=== PATIENT | female | born 1970 | race Caucasian/White ===

== ENCOUNTER 2024-08-03 13:05 | Observation (INO) | payer MEDICAID, SELFPAY ==
[2024-08-03] VITALS (10 sets, daily range): BP systolic 82–108; BP diastolic 45–66; PULSE 68–82; RESP 15–22; TEMP 36.7–37.4; O2SAT 95–100; BMI 32.6; BMI 33.3
--- NOTE | 2024-08-03 13:09 | ED_ITS ---
<Statement entered by French Mota MD - 08/04/24 01:16> Ultimately, the team leader surgery recommends admission for an MRCP in the morning. Patient be transferred to the admitting service in hemodynamically stable condition. I was consulted by the MOIRA, and we discussed the complexity of problems being addressed. I approved the treatment and management plan for this patient's care in the emergency department, thus performing a substantial portion of the medical decision making. French Mota MD Discharge Plan Disposition Patient Disposition: Admitted Clinical Impressions Clinical Impression: Neutropenia, Transaminitis Discharge ED Provider: Suha Garcia General Adult HPI <BASSEM Slaughter - Last Filed: 08/03/24 21:02> General Chief complaint: Abdominal Pain Stated complaint: Poss. Kidney Infection. Lower back pain, Fever Time Seen by Provider: 08/03/24 13:09 History of Present Illness HPI narrative: Patient presents for evaluation of right flank pain. Patient reports that she has had fever fatigue headache malaise for the last 3 days and yesterday began having right flank pain. Thought she may have a urinary tract infection although she has no dysuria symptoms. She denies shortness of breath hemoptysis hematochezia melena hematemesis hematuria Related Data Home Medications ?Medication ?Instructions ?Recorded ?Confirmed lisinopril 10 1 tab PO DAILY 08/03/24 08/03/24 mg-hydrochlorothiazide 12.5 mg tablet Allergies Allergy/AdvReac Type Severity Reaction Status Date / Time No Known Allergies Allergy Verified 08/03/24 13:51 PFSH <BASSEM Slaughter - Last Filed: 08/03/24 21:02> [facility] Disclaimer: The information contained in this section may have been updated after the patient was seen, as this information can be updated by other users. Medical History (Updated 08/03/24 @ 18:55 by Rachid Winn MD) Hypertension Social History Smoking Status: Never smoker alcohol intake: never current occupational status: employed Travel in the last 8 weeks?: None Have you lived/traveled outside US in past 30 days?: No Contact w/someone who lives/traveled outside US past 30 days?: No Exposure to someone with infectious disease in past 14 days?: No Do you have a fever (greater than 100.4 F or 38 C)?: No Have you tested positive for COVID-19?: No Exposed to someone with COVID-19 in past 14 days?: No Do you have a sore throat?: No Do you have a cough?: No Do you have any weakness?: No Do you have any diarrhea?: No Are you experiencing any unusual bleeding?: No Do you have any muscle aches/pain?: No Do you have any abdominal pain?: No Are you experiencing loss of taste or smell?: No <BASSEM Slaughter - Last Filed: 08/03/24 21:02> ROS Obtained: Yes Systems reviewed as appropriate & no additional complaints except as documented Physical Exam <BASSEM Slaughter - Last Filed: 08/03/24 21:02> General General appearance: alert and in no apparent distress Respiratory Respiratory exam: Present normal lung sounds bilaterally Cardiovascular Cardiovascular exam: Present regular rate Neurological Exam Neurological exam: Present alert and oriented X3 Medical Decision Making <BASSEM Slaughter - Last Filed: 08/03/24 21:02> Medical Records Medical records reviewed: Yes I reviewed the patient's medical records. Screening: Per USPSTF and CDC recommendations, given the prevalence of disease in our region, it is our hospital?s policy to screen for HIV and viral Hepatitis for all patients aged 18 and over and those with ongoing risk factors. Vital Signs: 08/03/24 13:35 08/03/24 14:03 08/03/24 14:38 Temperature 99.4 F Temperature Source Oral Pulse Rate 80 82 Pulse Rate [Right Radial] 82 Respiratory Rate 16 20 20 Blood Pressure 94/54 L 95/55 L Blood Pressure [Right Arm] 108/54 L Blood Pressure Mean 67 66 Blood Pressure Mean [Right Arm] 72 Blood Pressure Source Blood Pressure Source [Right Arm] Automatic Cuff Blood Pressure Position Blood Pressure Position [Right Arm] Sitting 02 Sat by Pulse Oximetry 99 95 95 Oxygen Delivery Method Room Air 08/03/24 15:00 08/03/24 15:08 08/03/24 15:30 Temperature Temperature Source Pulse Rate 78 78 74 Pulse Rate [Right Radial] Respiratory Rate 20 18 20 Blood Pressure 82/45 L 90/50 L 105/66 L Blood Pressure [Right Arm] Blood Pressure Mean 57 62 76 Blood Pressure Mean [Right Arm] Blood Pressure Source Blood Pressure Source [Right Arm] Blood Pressure Position Blood Pressure Position [Right Arm] 02 Sat by Pulse Oximetry 96 100 97 Oxygen Delivery Method 08/03/24 16:05 08/03/24 17:25 Temperature 99.0 F Temperature Source Oral Pulse Rate 68 68 Pulse Rate [Right Radial] Respiratory Rate 22 15 Blood Pressure 100/55 L 94/63 L Blood Pressure [Right Arm] Blood Pressure Mean Blood Pressure Mean [Right Arm] Blood Pressure Source Automatic Cuff Blood Pressure Source [Right Arm] Blood Pressure Position Supine Blood Pressure Position [Right Arm] 02 Sat by Pulse Oximetry 95 Oxygen Delivery Method Room Air Room Air Lab Data Lab results reviewed: Yes I reviewed the patient's lab results. Lab Results 08/03/24 13:18: Urine Color Yellow, Urine Appearance Clear, Urine pH 6.0, Ur Specific [place] 1.015, Urine Protein Trace, Urine Glucose (UA) Negative, Urine Ketones Negative, Urine Blood 3+ A, Urine Nitrate Negative, Urine Bilirubin 1+ A , Urine Urobilinogen 2.0, Ur Leukocyte Esterase Trace, Urine RBC 10-20, Urine WBC Occasional, Ur Squamous Epith Cells Occasional, Urine Bacteria Trace, Urine HCG, Qual Negative 08/03/24 13:40: GGT 572 H, Lactate Dehydrogenase 853 H, Acetaminophen < 10 L, Monoscreen Negative 08/03/24 13:41: WBC 1.6 L*, RBC 4.24, Hgb 12.8, Hct 37.6, MCV 88.7, MCH 30.2, MCHC 34.0, RDW 12.9, Plt Count 112 L, MPV 10.4, Neut % (Auto) 53.7, Lymph % (Auto) 32.3, [place] % (Auto) 10.8 H, Eos % (Auto) 0.0 L, Baso % (Auto) 1.3, Neut # (Auto) 0.9 L*, Lymph # (Auto) 0.5 L, [place] # (Auto) 0.2, Eos # (Auto) 0.0, Baso # (Auto) 0.0, Total Counted 50, Neutrophils % (Manual) 20 L, Band Neutrophils % 30.0 H, Lymphocytes % (Manual) 34, Atypical Lymphs % 2.0, Monocytes % (Manual) 4, Myelocytes % 8 H, Blast Cells % 2.0, Platelet Estimate Slight dec, RBC Morphology Normal, PT 11.9, INR 1.08, Sodium 129 L, Potassium 3.9, Chloride 98, Carbon Dioxide 27, Anion Gap 7.9, BUN 15, Creatinine 0.90, Estimated Creat Clear 90, Estimated GFR 65, Est GFR ( Amer) 79, Glucose 121 H, Calcium 8.9, Magnesium 1.9, Total Bilirubin 2.0 H, AST 298 H, ALT 252 H, Alkaline Phosphatase 277 H, Total Protein 6.6, Albumin 4.0, Globulin 2.6, Albumin/Globulin Ratio 1.5, Lipase 130, Procalcitonin 0.373, HCV Ab ALEC w/Rflx PCR Qn Negative 08/03/24 14:49: Chlamy pneumoniae PCR Not detected, Adenovirus (PCR) Not detected, B. pertussis DNA (PCR) Not detected, Coronavirus OC43 (PCR) Not detected, Coronavirus HKU1 (PCR) Not detected, Coronavirus 229E (PCR) Not detected, SARS-CoV-2 (PCR) Not detected, Coronavirus NL63 (PCR) Not detected, Human Metapneumovir PCR Not detected, Influenza A (H1) PCR Not detected, Influ A (H1N1/09) PCR Not detected, Influenza A (H3) PCR Not detected, Influenza Type A (PCR) Not detected, Influenza Type B (PCR) Not detected, M. pneumoniae (PCR) Not detected, Parainfluenza 1 (PCR) Not detected, Parainfluenza 2 (PCR) Not detected, Parainfluenza 3 (PCR) Not detected, Parainfluenza 4 (PCR) Not detected, RSV (PCR) Not detected, Entero/Rhino (PCR) Not detected 08/03/24 16:46: HIV Ag/Ab Combo Qual Negative 08/03/24 13:41 08/03/24 13:41 Orders (Tests/Meds): ED MEDICATIONS Generic Name Dose Route Start Last Admin Trade Name Freq PRN Reason Stop Dose Admin Acetaminophen 650 mg 08/03/24 18:46 Acetaminophen 325mg Tab PO 09/02/24 18:45 Q6HP PRN Fever or Mild Pain (1-3) Piperacillin Sod/Tazobactam 100 mls @ 200 mls/hr 08/03/24 16:45 08/03/24 18:04 Sod 4.5 gm/ Sodium Chloride IV 08/13/24 16:44 200 mls/hr Q6H ARPAN Administration Doxycycline Hyclate 100 mg/ 250 mls @ 166.667 mls/hr 08/03/24 16:45 08/03/24 17:07 Sodium Chloride IV 08/13/24 16:44 166.667 mls/hr Q12H ARPAN Administration Lactated Ringer's 1,000 mls @ 125 mls/hr 08/03/24 19:00 08/03/24 19:51 Lactated Ringer's 1000 Ml Bag IV 08/04/24 02:59 125 mls/hr .Q8H ARPAN Administration Sodium Chloride 10 ml 08/03/24 18:50 Sodium Chloride 0.9% 10ml Flush Syringe IV 09/02/24 18:49 NEEDED PRN Maintain IV Site Discontinued Medications Generic Name Dose Route Start Last Admin Trade Name Freq PRN Reason Stop Dose Admin Acetaminophen 1,000 mg 08/03/24 13:23 08/03/24 13:55 Acetaminophen 500mg Tab PO 08/03/24 13:24 1,000 mg ONCE ONE Administration Sodium Chloride 1,000 mls @ 999 mls/hr 08/03/24 13:23 08/03/24 13:57 Sod Chlor 0.9% 1000ml Bag IV 08/03/24 14:23 999 mls/hr .Q1H1M ONE Administration Sodium Chloride 1,430 mls @ 715 mls/hr 08/03/24 14:43 08/03/24 14:56 Sod Chlor 0.9% 1000ml Bag 30 ml/kg infuse over 2 hr (1430 ml) 08/03/24 16:42 715 mls/hr IV Administration .Q2H ONE Iopamidol 75 ml 08/03/24 14:23 08/03/24 14:25 Iopamidol-370 (76%);100ml Bottle IV 08/03/24 14:24 75 ml ONCE ONE Administration Ketorolac Tromethamine 15 mg 08/03/24 13:23 08/03/24 13:56 Ketorolac 30mg/Ml Vial IV 08/03/24 13:24 15 mg ONCE ONE Administration Ondansetron HCl 4 mg 08/03/24 13:23 08/03/24 13:56 Ondansetron 4mg/2ml Vial IV 08/03/24 13:24 4 mg ONCE ONE Administration Sodium Chloride 10 ml 08/03/24 14:23 08/03/24 14:25 Sodium Chloride 0.9% 10ml Syr (Rad Only) IV 08/03/24 14:24 10 ml ONCE ONE Administration ORDERS Category Date Time Status CT abdomen pelvis w con Stat Cat Scan 08/03/24 13:23 Completed US abdomen limited Stat Exams 08/03/24 15:21 Completed Acetaminophen Stat Lab 08/03/24 13:40 Completed CBC w/Auto Diff [Complete Blood Count Auto Diff] Stat Lab 08/03/24 13:41 Results CMP [Comprehensive Metabolic Panel] Stat Lab 08/03/24 13:41 Completed Complete Blood Count Auto Diff AMLAB Lab 08/04/24 06:00 Ordered Comprehensive Metabolic Panel AMLAB Lab 08/04/24 06:00 Ordered Francisella tularensis Abs. Routine Lab 08/03/24 13:41 Received Full Resp Panel w/COVID ([facility]) Routine Lab 08/03/24 14:49 Completed GGT [Gamma Glutamyl Transpeptidase] Stat Lab 08/03/24 13:40 Completed HIV Combo Stat Lab 08/03/24 16:46 Completed Hepatitis C Ab Qual. W/ RFX Routine Lab 08/03/24 13:41 Completed Hepatitis Panel Stat Lab 08/03/24 16:46 Received Human Granulocytic Genoveva-HGE Routine Lab 08/03/24 16:45 Ordered INR [Prothrombin Time INR] Stat Lab 08/03/24 13:41 Completed LDH [Lactate Dehydrogenase] Stat Lab 08/03/24 13:40 Completed Lipase Stat Lab 08/03/24 13:41 Completed Lyme Ab, Modified 2-Tier Stat Lab 08/03/24 13:41 Received Magnesium AMLAB Lab 08/04/24 06:00 Ordered Magnesium Stat Lab 08/03/24 13:41 Completed Monoscreen (Rapid) Stat Lab 08/03/24 13:40 Completed Peripheral Smear Review Stat Lab 08/03/24 13:41 Results Procalcitonin Stat Lab 08/03/24 13:41 Completed Prothrombin Time INR AMLAB Lab 08/04/24 06:00 Ordered UA [Urinalysis and Microscopic] Stat Lab 08/03/24 13:18 Completed Urine , HCG Qual. Stat Lab 08/03/24 13:18 Completed Blood Culture Stat Micro 08/03/24 14:51 Received Tissue Perfus/Sepsis Re-Eval Sepsis Re-Evaluation Performed: Yes Date Performed: 08/03/24 Time Performed: 16:00 Medical Decision Narrative: In summary patient is a 54-year-old female who presents to the emergency department for evaluation of headache fatigue malaise and right flank pain. Patient is hemodynamically stable with a blood pressure 108/54 initially heart rate 82 respiratory rate 16 O2 sats 99% upon arrival, temperature is 99.4 on arrival. Physical exam is remarkable for pupils equal round reactive to light without icterus, but sounds critical bilaterally to the bases with adventitious sounds, there is negative CVA tenderness to percussion bilaterally, abdomen is soft and diffusely mildly tender to palpation but no focal abdominal tenderness and no tenderness in the right upper quadrant negative Grullon sign.. Differential diagnosis includes urinary tract infection versus kidney stone versus cholelithiasis versus cholecystitis versus gastroenteritis etc. Initial workup will be conducted with hematologic labs urinalysis CT scan abdomen pelvis.. Initial interventions include crystalloid bolus Toradol Tylenol Zofran. Initial workup reviewed by me and her hematologic labs are significant for white count of 1.6 normal H&H platelet count of the 112 absolute neutrophil count of 0.9 absolute lymphocyte count of 0.5 with 30% bands, INR is 1.08, sodium is 129 glucose 121 magnesium 1.9 total bilirubin 2 GGT is 572 AST is 298 ALT is 252 alk phos is 277 LDH is 853 lipase is 130 and procalcitonin within normal limits but detectable at 0.373, urinalysis shows 3+ of blood 1 of bilirubin negative for nitrites trace leukocytes and microscopic exam shows 10- 20 red blood cells occasional white cells occasional squamous epithelial cells trace bacteria, urine hCG is negative, acetaminophen level is less than 10, and my informal interpretation of her CT scan abdomen pelvis shows no acute processes prior to radiology read. Please see formal read for formal interpretation. Given this I reinterviewed the patient and he queried about her medication history. She does not have a history of known liver disease denies alcohol use denies illicit drug use denies IV drug use and does not take Tylenol routinely. She does state [place] and has had multiple tick bites and tick removals in the last few weeks.. I then had an interactive discussion with Dr. Forde of gastroenterology who recommended an ultrasound to rule out obstructing stone. Formal ultrasound did not reveal any evidence of biliary obstruction or common bile duct obstruction. Additional lab testing showed that her Monospot was negative. Patient had a sepsis bolus ordered and despite nearly 3 L of fluid remains with a soft blood pressure of 95/63 but is not tachycardic at 73. Given this I had an interactive discussion with hospital medicine regarding patient presentation MEJIA and management and she will be admitted for further evaluation and care for possible tickborne disease versus ascending cholangitis. She will be started on IV doxycycline and Zosyn since blood cultures were ordered earlier.. DO Jose: I was consulted by the MOIRA, and we discussed the complexity of the problems being addressed. I approved the treatment and management plan for this patient's care in the emergency department, thus performing a substantive portion of the medical decision making. I was involved in the care of the patient until time of signout to oncoming provider at 1500 Suha Garcia DO <Suha Garcia DO - Last Filed: 08/03/24 15:20> Jamey Inquiry Pt receiving controlled substance: No Vital Signs: 08/03/24 13:35 08/03/24 14:03 08/03/24 14:38 Temperature 99.4 F Temperature Source Oral Pulse Rate 80 82 Pulse Rate [Right Radial] 82 Respiratory Rate 16 20 20 Blood Pressure 94/54 L 95/55 L Blood Pressure [Right Arm] 108/54 L Blood Pressure Mean 67 66 Blood Pressure Mean [Right Arm] 72 Blood Pressure Source Blood Pressure Source [Right Arm] Automatic Cuff Blood Pressure Position Blood Pressure Position [Right Arm] Sitting 02 Sat by Pulse Oximetry 99 95 95 Oxygen Delivery Method Room Air 08/03/24 15:00 08/03/24 15:08 08/03/24 15:30 Temperature Temperature Source Pulse Rate 78 78 74 Pulse Rate [Right Radial] Respiratory Rate 20 18 20 Blood Pressure 82/45 L 90/50 L 105/66 L Blood Pressure [Right Arm] Blood Pressure Mean 57 62 76 Blood Pressure Mean [Right Arm] Blood Pressure Source Blood Pressure Source [Right Arm] Blood Pressure Position Blood Pressure Position [Right Arm] 02 Sat by Pulse Oximetry 96 100 97 Oxygen Delivery Method 08/03/24 16:05 08/03/24 17:25 Temperature 99.0 F Temperature Source Oral Pulse Rate 68 68 Pulse Rate [Right Radial] Respiratory Rate 22 15 Blood Pressure 100/55 L 94/63 L Blood Pressure [Right Arm] Blood Pressure Mean Blood Pressure Mean [Right Arm] Blood Pressure Source Automatic Cuff Blood Pressure Source [Right Arm] Blood Pressure Position Supine Blood Pressure Position [Right Arm] 02 Sat by Pulse Oximetry 95 Oxygen Delivery Method Room Air Room Air Lab Data Lab Results 08/03/24 13:18: Urine Color Yellow, Urine Appearance Clear, Urine pH 6.0, Ur Specific [place] 1.015, Urine Protein Trace, Urine Glucose (UA) Negative, Urine Ketones Negative, Urine Blood 3+ A, Urine Nitrate Negative, Urine Bilirubin 1+ A , Urine Urobilinogen 2.0, Ur Leukocyte Esterase Trace, Urine RBC 10-20, Urine WBC Occasional, Ur Squamous Epith Cells Occasional, Urine Bacteria Trace, Urine HCG, Qual Negative 08/03/24 13:40: GGT 572 H, Lactate Dehydrogenase 853 H, Acetaminophen < 10 L, Monoscreen Negative 08/03/24 13:41: WBC 1.6 L*, RBC 4.24, Hgb 12.8, Hct 37.6, MCV 88.7, MCH 30.2, MCHC 34.0, RDW 12.9, Plt Count 112 L, MPV 10.4, Neut % (Auto) 53.7, Lymph % (Auto) 32.3, [place] % (Auto) 10.8 H, Eos % (Auto) 0.0 L, Baso % (Auto) 1.3, Neut # (Auto) 0.9 L*, Lymph # (Auto) 0.5 L, [place] # (Auto) 0.2, Eos # (Auto) 0.0, Baso # (Auto) 0.0, Total Counted 50, Neutrophils % (Manual) 20 L, Band Neutrophils % 30.0 H, Lymphocytes % (Manual) 34, Atypical Lymphs % 2.0, Monocytes % (Manual) 4, Myelocytes % 8 H, Blast Cells % 2.0, Platelet Estimate Slight dec, RBC Morphology Normal, PT 11.9, INR 1.08, Sodium 129 L, Potassium 3.9, Chloride 98, Carbon Dioxide 27, Anion Gap 7.9, BUN 15, Creatinine 0.90, Estimated Creat Clear 90, Estimated GFR 65, Est GFR ( Amer) 79, Glucose 121 H, Calcium 8.9, Magnesium 1.9, Total Bilirubin 2.0 H, AST 298 H, ALT 252 H, Alkaline Phosphatase 277 H, Total Protein 6.6, Albumin 4.0, Globulin 2.6, Albumin/Globulin Ratio 1.5, Lipase 130, Procalcitonin 0.373, HCV Ab ALEC w/Rflx PCR Qn Negative 08/03/24 14:49: Chlamy pneumoniae PCR Not detected, Adenovirus (PCR) Not detected, B. pertussis DNA (PCR) Not detected, Coronavirus OC43 (PCR) Not detected, Coronavirus HKU1 (PCR) Not detected, Coronavirus 229E (PCR) Not detected, SARS-CoV-2 (PCR) Not detected, Coronavirus NL63 (PCR) Not detected, Human Metapneumovir PCR Not detected, Influenza A (H1) PCR Not detected, Influ A (H1N1/09) PCR Not detected, Influenza A (H3) PCR Not detected, Influenza Type A (PCR) Not detected, Influenza Type B (PCR) Not detected, M. pneumoniae (PCR) Not detected, Parainfluenza 1 (PCR) Not detected, Parainfluenza 2 (PCR) Not detected, Parainfluenza 3 (PCR) Not detected, Parainfluenza 4 (PCR) Not detected, RSV (PCR) Not detected, Entero/Rhino (PCR) Not detected 08/03/24 16:46: HIV Ag/Ab Combo Qual Negative Orders (Tests/Meds): ED MEDICATIONS Generic Name Dose Route Start Last Admin Trade Name Freq PRN Reason Stop Dose Admin Acetaminophen 650 mg 08/03/24 18:46 Acetaminophen 325mg Tab PO 09/02/24 18:45 Q6HP PRN Fever or Mild Pain (1-3) Piperacillin Sod/Tazobactam 100 mls @ 200 mls/hr 08/03/24 16:45 08/03/24 18:04 Sod 4.5 gm/ Sodium Chloride IV 08/13/24 16:44 200 mls/hr Q6H ARPAN Administration Doxycycline Hyclate 100 mg/ 250 mls @ 166.667 mls/hr 08/03/24 16:45 08/03/24 17:07 Sodium Chloride IV 08/13/24 16:44 166.667 mls/hr Q12H ARPAN Administration Lactated Ringer's 1,000 mls @ 125 mls/hr 08/03/24 19:00 08/03/24 19:51 Lactated Ringer's 1000 Ml Bag IV 08/04/24 02:59 125 mls/hr .Q8H ARPAN Administration Sodium Chloride 10 ml 08/03/24 18:50 Sodium Chloride 0.9% 10ml Flush Syringe IV 09/02/24 18:49 NEEDED PRN Maintain IV Site Discontinued Medications Generic Name Dose Route Start Last Admin Trade Name Alanq PRN Reason Stop Dose Admin Acetaminophen 1,000 mg 08/03/24 13:23 08/03/24 13:55 Acetaminophen 500mg Tab PO 08/03/24 13:24 1,000 mg ONCE ONE Administration Sodium Chloride 1,000 mls @ 999 mls/hr 08/03/24 13:23 08/03/24 13:57 Sod Chlor 0.9% 1000ml Bag IV 08/03/24 14:23 999 mls/hr .Q1H1M ONE Administration Sodium Chloride 1,430 mls @ 715 mls/hr 08/03/24 14:43 08/03/24 14:56 Sod Chlor 0.9% 1000ml Bag 30 ml/kg infuse over 2 hr (1430 ml) 08/03/24 16:42 715 mls/hr IV Administration .Q2H ONE Iopamidol 75 ml 08/03/24 14:23 08/03/24 14:25 Iopamidol-370 (76%);100ml Bottle IV 08/03/24 14:24 75 ml ONCE ONE Administration Ketorolac Tromethamine 15 mg 08/03/24 13:23 08/03/24 13:56 Ketorolac 30mg/Ml Vial IV 08/03/24 13:24 15 mg ONCE ONE Administration Ondansetron HCl 4 mg 08/03/24 13:23 08/03/24 13:56 Ondansetron 4mg/2ml Vial IV 08/03/24 13:24 4 mg ONCE ONE Administration Sodium Chloride 10 ml 08/03/24 14:23 08/03/24 14:25 Sodium Chloride 0.9% 10ml Syr (Rad Only) IV 08/03/24 14:24 10 ml ONCE ONE Administration ORDERS Category Date Time Status CT abdomen pelvis w con Stat Cat Scan 08/03/24 13:23 Completed US abdomen limited Stat Exams 08/03/24 15:21 Completed Acetaminophen Stat Lab 08/03/24 13:40 Completed CBC w/Auto Diff [Complete Blood Count Auto Diff] Stat Lab 08/03/24 13:41 Results CMP [Comprehensive Metabolic Panel] Stat Lab 08/03/24 13:41 Completed Complete Blood Count Auto Diff AMLAB Lab 08/04/24 06:00 Ordered Comprehensive Metabolic Panel AMLAB Lab 08/04/24 06:00 Ordered Francisella tularensis Abs. Routine Lab 08/03/24 13:41 Received Full Resp Panel w/COVID ([facility]) Routine Lab 08/03/24 14:49 Completed GGT [Gamma Glutamyl Transpeptidase] Stat Lab 08/03/24 13:40 Completed HIV Combo Stat Lab 08/03/24 16:46 Completed Hepatitis C Ab Qual. W/ RFX Routine Lab 08/03/24 13:41 Completed Hepatitis Panel Stat Lab 08/03/24 16:46 Received Human Granulocytic Genoveva-HGE Routine Lab 08/03/24 16:45 Ordered INR [Prothrombin Time INR] Stat Lab 08/03/24 13:41 Completed LDH [Lactate Dehydrogenase] Stat Lab 08/03/24 13:40 Completed Lipase Stat Lab 08/03/24 13:41 Completed Lyme Ab, Modified 2-Tier Stat Lab 08/03/24 13:41 Received Magnesium AMLAB Lab 08/04/24 06:00 Ordered Magnesium Stat Lab 08/03/24 13:41 Completed Monoscreen (Rapid) Stat Lab 08/03/24 13:40 Completed Peripheral Smear Review Stat Lab 08/03/24 13:41 Results Procalcitonin Stat Lab 08/03/24 13:41 Completed Prothrombin Time INR AMLAB Lab 08/04/24 06:00 Ordered UA [Urinalysis and Microscopic] Stat Lab 08/03/24 13:18 Completed Urine , HCG Qual. Stat Lab 08/03/24 13:18 Completed Blood Culture Stat Micro 08/03/24 14:51 Received ECG Data Tracing #1: I reviewed this ECG and interpreted as documented below: Normal sinus rhythm with a ventricular rate of 79 bpm. PVC noted. No acute ST changes concerning for ischemia. Normal intervals ECG initial impression date: 08/03/24 ECG initial impression time: 13:32 Medical Decision Narrative: In summary patient is a [age, sex] who presents to the emergency department for evaluation of [complaint]. Patient is [hemodynamically stable/unstable] upon arrival, [febrile/afebrile]. [Unremarkable physical exam, nonfocal exam versus focal remarkable exam]. Differential diagnosis includes [DDx]. Initial workup will be conducted with [hematologic labs, imaging, respiratory swab, describe workup]. Initial interventions include [crystalloid bolus, medications, p.o. challenge, etc.] initial workup reviewed by me [hematologic labs are remarkable for... Imaging remarkable for... Urinalysis remarkable for]. Upon repeat evaluation [patient had acceptable resolution of symptoms, had persistent pain for which additional interventions were conducted (describe interventions), tolerated p.o., was ambulatory, etc.]. Given this [patient is appropriate for discharge at this time and will be discharged with a prescription for... The case was discussed with hospital medicine regarding management and they will admit the patient their service for continued evaluation at this time... Etc.] Places where you can increase complexity: I informally interpreted the patient's chest x-ray or CT read and is remarkable for... Documenting what the geosciences associate professor shows with rate and rhythm Consideration of test but deferring. Ex: I considered chest x-ray on this patient however given that they have no oxygen requirement and are clear to auscultation all lung jeter will be deferred. Social determinants of health: Given that patient is undomiciled increases complexity. Given that patient has polysubstance abuse compounds all aspects of care DO Jose: I was consulted by the MOIRA, and we discussed the complexity of the problems being addressed. I approved the treatment and management plan for this patient's care in the emergency department, thus performing a substantive portion of the medical decision making. I was involved in the care of the patient until time of signout to oncoming provider at 1500 Suha Garcia DO Critical Care <BASSEM Slaughter - Last Filed: 08/03/24 21:02> Critical Care Time Critical Care Time: Yes Attestation: On 08/03/24, the high probability of a clinically significant, sudden or life threatening deterioration of the following system(s) required my full and direct attention, intervention and personal management. The time I documented below is in addition to time spent performing reported procedures but includes the following listed in this critical care notation. Total Time Total Critical Care Time: 75 <Suha Garcia DO - Last Filed: 08/03/24 15:20> Critical Care Time Critical Care Time: No
--- NOTE | 2024-08-03 13:23 | CT_ITS ---
FINAL REPORT TECHNIQUE: Oral and IV contrast enhanced exam This study was performed with techniques to keep radiation doses as low as reasonably achievable, (ALARA). Individualized dose reduction techniques using automated exposure control or adjustment of mA and/or kV according to the patient''s size were employed. CLINICAL HISTORY: Right flank pain FINDINGS: Abdomen: Lung bases are clear. The gallbladder is unremarkable. Liver has an unremarkable CT appearance. The spleen mildly enlarged. The pancreas and adrenal glands are unremarkable. Kidneys show no mass or obstruction. There is moderate right and mild left renal scarring. No bowel obstruction or fluid collection is seen. Pelvis: The appendix is normal. Pelvic bowel loops are unremarkable. Uterus is mildly enlarged which may be due to fibroids. Although, no discrete mass is identified. No fluid collection or adenopathy is seen. IMPRESSION: No acute findings. Bilateral renal scarring, right greater than left. Reviewed, Interpreted and Dictated by James Chaudhry MD Transcribed by Crissy Peterson Authenticated and [facility]
[2024-08-03 13:24] LABS: Microscopic, Urine URINE MICROSCOPIC (MICROSCOPIC)
[2024-08-03 13:29] LABS: Appearance,Urine CLEAR (Clear); Blood, Urine 3+ (Negative); Color,Urine YELLOW (Yellow); Glucose,Urine (UA) Negative (Negative); Ketones,Urine Negative (Negative); Leukocyte Esterase,Urine TRACE (Negative); Nitrate,Urine Negative (Negative); Protein,Urine TRACE (Negative); Specific Gravity, Urine 1.015 (1.005-1.030)
[2024-08-03 13:30] LABS: Bilirubin,Urine 1+ (Negative)
--- NOTE | 2024-08-03 13:30 | ECG_ITS ---
APPROVED REPORT Exam: Resting ECG HR:79 bpm ECG Measurements Heart Rate 79 AXES CO 153 P 28 QRSd 94 QRS 58 QT 342 T 27 QTc 376 Conclusion SINUS RHYTHM WITH OCCASIONAL VENTRICULAR PREMATURE COMPLEXES POSSIBLE ANTERIOR MYOCARDIAL INFARCTION , OF INDETERMINATE AGE [30 ms Q WAVE IN V3/V4, OR R < 0.2 mV IN V4] No STEMI Electronically signed by : BROWN CRUZ, 08/04/2024 02:58:51
[2024-08-03 13:39] LABS: WBC,Urine Occasional #/hpf (0-3)
[2024-08-03 13:40] LABS: Bacteria,Urine Trace /lpf; Squamous Epithelial Cell,Urine Occasional #/hpf (0-5)
[2024-08-03 13:52] LABS: Basophils % 1.3 % (0.1-2.0); Hematocrit 37.6 % (37.0-47.0); Hemoglobin 12.8 g/dL (12.2-16.2); Immature Granulocytes # 0.03 10^3uL; Immature Granulocytes % 1.9 %; Lymphocytes # 0.5 K/mm3 (0.7-4.5); Lymphocytes % 32.3 % (10-50); Mean Corpuscular Hemoglobin 30.2 pg (27.0-31.2); Mean Corpuscular Volume 88.7 fl (81-99); Mean Platelet Volume 10.4 fl (7.4-10.4); Monocytes # 0.2 K/mm3 (0.1-1.0); Monocytes % 10.8 % (1.7-9.3); Neutrophils # 0.9 K/mm3 (1.8-7.8); Neutrophils % 53.7 % (37.0-80.0); Nucleated Red Blood Cells # 0 10^3/uL; Nucleated Red Blood Cells % 0 %; Platelet Count 112 K/mm3 (142-424); Red Blood Count 4.24 M/mm3 (4.20-5.40); Red Cell Distribution Width 12.9 % (11.5-17.5); Red Cell Distribution Width-SD 41.9 fL
[2024-08-03] MEDS: ACETAMINOPHEN 500MG TAB 1000 MG PO (13:55)
[2024-08-03] MEDS: ONDANSETRON 4MG/2ML VIAL 4 MG IV (13:56)
[2024-08-03] MEDS: KETOROLAC 30MG/ML VIAL 15 MG IV (13:56)
[2024-08-03] MEDS: 0.9 % SODIUM CHLORIDE 1000ML 1,000 ML 999 ML IV (13:57)
[2024-08-03 13:59] LABS: INR 1.08 (0.9-1.1); Prothrombin Time 11.9 seconds (10.1-12.5)
[2024-08-03 14:01] LABS: Alanine Aminotransferase 252 U/L (12-78); Albumin/Globulin Ratio 1.5 (1.1-1.8); Aspartate Amino Transferase 298 U/L (14-36); Blood Urea Nitrogen 15 mg/dl (7-17); Calcium 8.9 mg/dl (8.4-10.2); Carbon Dioxide 27 mmol/L (22.0-30.0); Chloride 98 mmol/L (98-107); Creatinine Clearance Estimated 90 mL/min (50-200); Estimated Glomerular Filt Rate 65 ml/min (>60); GFR (African American) 79 ML/MIN (>60); Globulin 2.6 g/dL (1.3-3.2); Glucose 121 mg/dl (74-100); Lipase 130 U/L (23-300); Magnesium 1.9 mg/dl (1.6-2.3); Sodium 129 mmol/L (136-145); Total Protein,Serum 6.6 g/dl (6.3-8.2)
[2024-08-03 14:02] LABS: Alkaline Phosphatase 277 U/L (38-126)
[2024-08-03 14:04] LABS: Anion Gap 7.9 mEq/L (5-15); Potassium 3.9 mmoL/L (3.5-5.1)
[2024-08-03 14:07] LABS: White Blood Count 1.6 K/mm3 (4.8-10.8)
[2024-08-03 14:08] LABS: MANUAL DIFFERENTIAL MANUAL DIFFERENTIAL (MANUAL DIFF)
[2024-08-03 14:15] LABS: Urine Pregnancy, HCG Qual. Negative (Negative)
[2024-08-03 14:18] LABS: Procalcitonin 0.373 ng/mL (0.0-2.0)
[2024-08-03] MEDS: SODIUM CHLORIDE 0.9% 10ML SYR (RAD ONLY) 10 ML IV (14:25)
[2024-08-03] MEDS: IOPAMIDOL-370 (76%);100ML BOTTLE 75 ML IV (14:25)
[2024-08-03 14:54] LABS: Adenovirus,PCR Not Detected (NotDetected); Bordetella Pertussis Not Detected (NotDetected); Chlamydophila Pneumoniae, PCR Not Detected (NotDetected); Coronavirus 19, PCR Not Detected (NotDetected); Coronavirus 229E Not Detected (NotDetected); Coronavirus NL63 Not Detected (NotDetected); Coronavirus OC43 Not Detected (NotDetected); Coronovirus HKU1,PCR Not Detected (NotDetected); Human Metapneumovirus Not Detected (NotDetected); Influenza A, PCR Not Detected (NotDetected); Influenza AH1, 2009 Not Detected (NotDetected); Influenza AH1, PCR Not Detected (NotDetected); Influenza AH3,PCR Not Detected (NotDetected); Influenza B, PCR Not Detected (NotDetected); Mycoplasma Pneumoniae, PCR Not Detected (NotDetected); Parainfluenza 1, PCR Not Detected (NotDetected); Parainfluenza 2, PCR Not Detected (NotDetected); Parainfluenza 3, PCR Not Detected (NotDetected); Parainfluenza 4, PCR Not Detected (NotDetected); Respiratory Syncytial Virus Not Detected (NotDetected); Rhinovirus/Enterovirus Not Detected (NotDetected)
[2024-08-03] MEDS: 0.9 % SODIUM CHLORIDE 1000ML 1,430 ML 715 ML IV (14:56)
[2024-08-03 15:01] LABS: Monoscreen (Rapid) Negative (Negative)
[2024-08-03 15:10] LABS: Lyme Ab IgM CIA ND; Lyme IgG CIA ND
--- NOTE | 2024-08-03 15:21 | US_ITS ---
FINAL REPORT CLINICAL HISTORY: Right flank pain and transaminitis COMPARISON: None FINDINGS: Sonographic images of the right upper quadrant were obtained. The pancreas is partially obscured. The liver has an unremarkable appearance. There is no evidence of biliary obstruction. The gallbladder is contracted. There is no evidence of definite stone disease. The common duct measures 6 mm. Limited images of the right kidney show no obstruction IMPRESSION: Contracted gallbladder without evidence of biliary obstruction. No hydronephrosis. Reviewed, Interpreted and Dictated by James Chaudhry MD Transcribed by Bre Jenkins Authenticated and [facility]
--- NOTE | 2024-08-03 15:26 | PC.NURSE ---
RADIOLOGY NOTIFIED OF US
[2024-08-03 15:31] LABS: Lymphocytes % 34 % (10-50); Monocytes % 4 % (2-9); Myelocytes % 8 (0-1); Neutrophils % 20 % (42-76); Total Cells Counted 50
[2024-08-03 15:32] LABS: RBC Morphology Normal
[2024-08-03 15:33] LABS: Platelet Estimate Slight Dec
[2024-08-03 15:39] LABS: Acetaminophen < 10 ug/ml (10-30)
[2024-08-03 15:48] LABS: Gamma Glutamyl Transpeptidase 572 U/L (12-43); Lactate Dehydrogenase 853 U/L (313-618)
--- NOTE | 2024-08-03 16:50 | PC.NURSE ---
[facility] TRADER NOTIFIED OF ADMISSION
--- NOTE | 2024-08-03 16:50 | EXP.HP ---
History of Present Illness *Admission Date: 08/03/24 *Reason for visit:: abdominal pain *History of present illness: Ms. Powell is an otherwise healthy 54-year-old female who presented to the ER due to abdominal pain for 2 to 3 days and syncopal event yesterday. States she has been having abdominal pain, worse in right upper quadrant. Has felt febrile. Denies bria emesis or diarrhea. Denies shortness of breath but has had some chest discomfort. Reports that she is currently building a house in the [facility] and has had numerous tick bites over the past several days to week. Even had a tick found on her in the ER. Workup in the ER concerning for neutropenia, thrombocytopenia, transaminitis with liver enzymes in the 2 300 range. Imaging showed a contracted gallbladder with no significant common bile duct dilation. GGT also elevated at 572. Medicine consulted for admission and further management. On arrival to the floor, further discussion with patient leads to high suspicion for tickborne illness. Feeling better after receiving a dose of 100 mg IV doxycycline in the ER. Stable on room air. Reports history of hypertension. Has had a tummy tuck and breast augmentation bilaterally. No other surgeries she reports. [facility] Disclaimer: The information contained in this section may have been updated after the patient was seen, as this information can be updated by other users. Medical History (Updated 08/03/24 @ 18:55 by Rachid Winn MD) Hypertension Social History Smoking Status: Never smoker alcohol intake: never current occupational status: employed Travel in the last 8 weeks?: None Have you lived/traveled outside US in past 30 days?: No Contact w/someone who lives/traveled outside US past 30 days?: No Exposure to someone with infectious disease in past 14 days?: No Do you have a fever (greater than 100.4 F or 38 C)?: No Have you tested positive for COVID-19?: No Exposed to someone with COVID-19 in past 14 days?: No Do you have a sore throat?: No Do you have a cough?: No Do you have any weakness?: No Do you have any diarrhea?: No Are you experiencing any unusual bleeding?: No Do you have any muscle aches/pain?: No Do you have any abdominal pain?: No Are you experiencing loss of taste or smell?: No Review of Systems Review of Systems Review of systems (narrative): 14 point review of systems performed, pertinent positives and negatives as per [facility] Meds Home Medications and Allergies Home Medications ?Medication ?Instructions ?Recorded ?Confirmed ?Type lisinopril 10 1 tab PO DAILY 08/03/24 08/03/24 History mg-hydrochlorothiazide 12.5 mg tablet New Prescriptions to Start Prescriptions: Allergies Allergy/AdvReac Type Severity Reaction Status Date / Time No Known Allergies Allergy Verified 08/03/24 13:51 Exam Data for Last 24 hours Vital signs and Labs for Last 24 Hours: Temp Pulse Resp BP Pulse Ox O2 Del Method 99.4 F 68 22 100/55 L 95 Room Air 08/03/24 13:35 08/03/24 16:05 08/03/24 16:05 08/03/24 16:05 08/03/24 16:05 08/03/24 16:05 Laboratory Results - last 24 hr 08/03/24 13:18: Urine Color Yellow, Urine Appearance Clear, Urine pH 6.0, Ur Specific [place] 1.015, Urine Protein Trace, Urine Glucose (UA) Negative, Urine Ketones Negative, Urine Blood 3+ A, Urine Nitrate Negative, Urine Bilirubin 1+ A, Urine Urobilinogen 2.0, Ur Leukocyte Esterase Trace, Urine RBC 10-20, Urine WBC Occasional, Ur Squamous Epith Cells Occasional, Urine Bacteria Trace, Urine HCG, Qual Negative 08/03/24 13:40: GGT 572 H, Lactate Dehydrogenase 853 H, Acetaminophen < 10 L, Monoscreen Negative 08/03/24 13:41: WBC 1.6 L*, RBC 4.24, Hgb 12.8, Hct 37.6, MCV 88.7, MCH 30.2, MCHC 34.0, RDW 12.9, Plt Count 112 L, MPV 10.4, Neut % (Auto) 53.7, Lymph % (Auto) 32.3, [place] % (Auto) 10.8 H, Eos % (Auto) 0.0 L, Baso % (Auto) 1.3, Neut # (Auto) 0.9 L*, Lymph # (Auto) 0.5 L, [place] # (Auto) 0.2, Eos # (Auto) 0.0, Baso # (Auto) 0.0, Total Counted 50, Neutrophils % (Manual) 20 L, Band Neutrophils % 30.0 H, Lymphocytes % (Manual) 34, Atypical Lymphs % 2.0, Monocytes % (Manual) 4, Myelocytes % 8 H, Blast Cells % 2.0, Platelet Estimate Slight dec, RBC Morphology Normal, PT 11.9, INR 1.08, Sodium 129 L, Potassium 3.9, Chloride 98, Carbon Dioxide 27, Anion Gap 7.9, BUN 15, Creatinine 0.90, Estimated Creat Clear 90, Estimated GFR 65, Est GFR ( Amer) 79, Glucose 121 H, Calcium 8.9, Magnesium 1.9, Total Bilirubin 2.0 H, AST 298 H, ALT 252 H, Alkaline Phosphatase 277 H, Total Protein 6.6, Albumin 4.0, Globulin 2.6, Albumin/Globulin Ratio 1.5, Lipase 130, Procalcitonin 0.373 I & O for Last 24 hours: Intake & Output 07/31/24 08/01/24 08/02/24 08/03/24 23:59 23:59 23:59 23:59 Weight 78.471 kg Constitutional Constitutional: mild distress, average body habitus and cooperative *Routine HEENT Exam Head: Present normocephalic Eye: Present EOMI and PERRL ENT: Present mucous membranes moist Comments: Cheeks flushed *Routine Neck Exam Neck: Present supple; Absent lymphadenopathy *Routine Respiratory Exam Respiratory: Present CTA bilaterally *Routine Cardiovascular Exam Cardiovascular: Present RRR *Routine Abdominal Exam Abdominal: Present soft, normoactive bowel sounds and tenderness (Worse in right upper quadrant); Absent distended, rebound or guarding *Routine Rectal Exam Rectal:: deferred *Routine Genitalia Exam Genitalia:: deferred *Routine Extremities Exam Extremities: Absent cyanosis, clubbing or edema *Routine Skin Exam Skin: Present warm; Absent rash Comments: Erythema around site of tick bite on back. Multiple spots that appear consistent with previous tick bites on her abdomen. No targetoid lesions *Routine Neurological Exam Neurological: Present alert, oriented X3 and moving all extremities; Absent altered mental status Assessment and Plan *Assessment and plan (1) Abdominal pain: Status: Acute Category: Medical Code(s): R10.9 - Unspecified abdominal pain (2) Transaminitis: Status: Acute Category: Medical Code(s): R74.01 - Elevation of levels of liver transaminase levels (3) Neutropenia: Status: Acute Category: Medical Code(s): D70.9 - Neutropenia, unspecified (4) Tick bite: Status: Acute Category: Medical Code(s): W57.XXXA - Bitten or stung by nonvenomous insect and other nonvenomous arthropods, initial encounter (5) Hypertension: Status: Chronic Category: Medical Code(s): I10 - Essential (primary) hypertension Plan 54-year-old female who presents with abdominal pain. Found to have transaminitis and neutropenia along with thrombocytopenia. Constellation of symptoms highly suggestive of tickborne illness such as ehrlichia or anaplasmosis. Discussed case with ER physician, request admission for further management and antibiotics. I agreed to admit for further care. GI consulted in the ER due to transaminitis. Appreciate their assistance in care. Appears to be showing some improvement after administration of doxycycline. Continues to require inpatient treatment. Problems addressed as follows: Abdominal pain Transaminitis Neutropenia/thrombocytopenia - CT of abdomen personally reviewed, gallbladder contracted. Does not appear to have any identifiable radiopaque stones - Labs with bilirubin 2.0, AST 298, ALT 252, alk phos 277, GGT 572. White count 1.6 with neutrophil count of 800. Platelets 112. Findings concerning for mild liver injury. Differential includes hepatitis, tickborne illness, choledocholithiasis, among other etiologies - Constellation most concerning for tickborne illness. Initiated on Zosyn due to neutropenia. Continue 4.5 g every 6 hours. Continue doxycycline 100 mg twice daily IV due to tickborne illness suspicion. - Ordered repeat CBC, CMP, magnesium for the morning. Ehrlichia level pending. - GI consulted, appreciate their recommendations. Hypertension: On home lisinopril/HCTZ. Holding blood pressure medication in the setting of dehydration and soft pressures at this time. Sodium 129, BUN 15, creatinine 0.9. Administering 1 L of LR at 125 cc an hour tonight. Regular diet ordered Holding anticoagulation in the setting of thrombocytopenia Full code
[2024-08-03] MEDS: DOXYCYCLINE HYCLATE 100 MG in 0.9 % SODIUM CHLORIDE 250 ML 166.667 MG IV (17:07)
[2024-08-03] MEDS: PIPERACILLIN/TAZO 4.5 GM in 0.9 % SODIUM CHLORIDE 100 ML IV ×2 (18:04→21:51)
[2024-08-03 18:24] LABS: Hepatitis C Ab Qual. W/ RFX NEGATIVE (Negative)
[2024-08-03 18:37] LABS: HIV Combo NEGATIVE (Negative)
[2024-08-03] MEDS: LACTATED RINGERS 1000ML 1,000 ML 125 ML IV (19:51)
[2024-08-04] VITALS: BP 98/49; PULSE 77; RESP 16; TEMP 37.9; O2SAT 95
[2024-08-04] MEDS: ACETAMINOPHEN 325MG TAB 650 MG PO ×4 (00:46→22:58)
[2024-08-04] MEDS: ALUMINUM/MAGNESIUM/SIMETHICONE 30ML UDC 30 ML PO ×2 (01:26→16:15)
--- NOTE | 2024-08-04 03:34 | PC.NURSE ---
Pt AOx4. Had low fever of 100.2 and c/o headache. Administered tylenol and rechecked temp, recorded as 99.3. Pt is currently resting in bed with eyes closed. Respirations even and unlabored. Bed is low, locked, and call light is in reach.
[2024-08-04 04:00] VITALS: BP 94/44; PULSE 74; RESP 16; TEMP 37.2; O2SAT 95; BMI 34.2
[2024-08-04] MEDS: PIPERACILLIN/TAZO 4.5 GM in 0.9 % SODIUM CHLORIDE 100 ML IV ×4 (04:21→22:39)
[2024-08-04] MEDS: DOXYCYCLINE HYCLATE 100 MG in 0.9 % SODIUM CHLORIDE 250 ML 166.667 MG IV ×2 (05:16→16:14)
[2024-08-04 06:50] LABS: Basophils % 1.1 % (0.1-2.0); Hematocrit 33.1 % (37.0-47.0); Immature Granulocytes # 0.03 10^3uL; Immature Granulocytes % 1.7 %; Lymphocytes # 0.8 K/mm3 (0.7-4.5); Lymphocytes % 43.1 % (10-50); Mean Corpuscular HGB Conc 33.8 g/dL (31.8-35.4); Mean Corpuscular Hemoglobin 30.6 pg (27.0-31.2); Mean Corpuscular Volume 90.4 fl (81-99); Mean Platelet Volume 11.1 fl (7.4-10.4); Monocytes # 0.2 K/mm3 (0.1-1.0); Monocytes % 10.9 % (1.7-9.3); Neutrophils # 0.8 K/mm3 (1.8-7.8); Neutrophils % 43.2 % (37.0-80.0); Nucleated Red Blood Cells # 0 10^3/uL; Nucleated Red Blood Cells % 0 %; Platelet Count 84 K/mm3 (142-424); Red Blood Count 3.66 M/mm3 (4.20-5.40); Red Cell Distribution Width-SD 43.6 fL
[2024-08-04 06:52] LABS: Alanine Aminotransferase 208 U/L (12-78); Albumin/Globulin Ratio 1.3 (1.1-1.8); Alkaline Phosphatase 241 U/L (38-126); Anion Gap 4.7 mEq/L (5-15); Aspartate Amino Transferase 231 U/L (14-36); Bilirubin,Total 1.9 mg/dl (0.2-1.3); Blood Urea Nitrogen 14 mg/dl (7-17); Carbon Dioxide 29 mmol/L (22.0-30.0); Chloride 105 mmol/L (98-107); Creatinine Clearance Estimated 96 mL/min (50-200); Estimated Glomerular Filt Rate 65 ml/min (>60); GFR (African American) 79 ML/MIN (>60); Globulin 2.4 g/dL (1.3-3.2); Glucose 108 mg/dl (74-100); Magnesium 1.9 mg/dl (1.6-2.3); Potassium 3.7 mmoL/L (3.5-5.1); Sodium 135 mmol/L (136-145); Total Protein,Serum 5.4 g/dl (6.3-8.2)
[2024-08-04 07:02] LABS: INR 1.08 (0.9-1.1); Prothrombin Time 11.9 seconds (10.1-12.5)
[2024-08-04 07:24] LABS: MANUAL DIFFERENTIAL MANUAL DIFFERENTIAL (MANUAL DIFF); White Blood Count 1.7 K/mm3 (4.8-10.8)
--- NOTE | 2024-08-04 07:24 | EXP.GE.CONS ---
History of Present Illness *Admission Date: 08/03/24 *History of present illness: Mrs. Powell is a 54-year-old female who is here for hospital admission after being admitted yesterday for right upper quadrant abdominal pain/right flank pain that radiates into the back. The patient does state that she has had this for 2 days. The patient also presented with elevated liver enzymes and a total bilirubin of 2.0 (down to 1.9 today). She also had elevated AST 298, ALT 252 and alkaline phosphatase 277. Her lipase was normal at 130. The patient also had pancytopenia with white blood cell count of 1.6 (54% neutrophils) and platelet count of 112,000. Her platelet count today is 84,000. She was found to have a tick on her back. She does state that she is exposed to ticks often because of where [place] the [place] and her dog gets ticks often as well. The patient has had low-grade fever, headache, nausea and some dizziness. She has noted darkened urine. Her imaging with CAT scan did not show any gallbladder abnormality, gallstones or bile duct dilation. Her ultrasound showed a contracted gallbladder without evidence of biliary ductal dilation. Her CBD was 6 mm. [facility] Disclaimer: The information contained in this section may have been updated after the patient was seen, as this information can be updated by other users. Medical History (Updated 08/04/24 @ 07:29 by Abbe Forde II, MD) Hypertension Social History Smoking Status: Never smoker alcohol intake: never current occupational status: employed Travel in the last 8 weeks?: None Have you lived/traveled outside US in past 30 days?: No Contact w/someone who lives/traveled outside US past 30 days?: No Exposure to someone with infectious disease in past 14 days?: No Do you have a fever (greater than 100.4 F or 38 C)?: No Have you tested positive for COVID-19?: No Exposed to someone with COVID-19 in past 14 days?: No Do you have a sore throat?: No Do you have a cough?: No Do you have any weakness?: No Do you have any diarrhea?: No Are you experiencing any unusual bleeding?: No Do you have any muscle aches/pain?: No Do you have any abdominal pain?: No Are you experiencing loss of taste or smell?: No Meds Home Medications and Allergies Home Medications ?Medication ?Instructions ?Recorded ?Confirmed ?Type lisinopril 10 1 tab PO DAILY 08/03/24 08/03/24 History mg-hydrochlorothiazide 12.5 mg tablet New Prescriptions to Start Prescriptions: Allergies Allergy/AdvReac Type Severity Reaction Status Date / Time No Known Allergies Allergy Verified 08/03/24 13:51 Exam (Inpt) Vital signs and Labs for Last 24 Hours: Temp Pulse Resp BP Pulse Ox O2 Del Method 99.0 F 74 16 94/44 L 95 Room Air 08/04/24 04:00 08/04/24 04:00 08/04/24 04:00 08/04/24 04:00 08/04/24 04:00 08/04/24 06:32 Laboratory Results - last 24 hr 08/03/24 13:18: Urine Color Yellow, Urine Appearance Clear, Urine pH 6.0, Ur Specific [place] 1.015, Urine Protein Trace, Urine Glucose (UA) Negative, Urine Ketones Negative, Urine Blood 3+ A, Urine Nitrate Negative, Urine Bilirubin 1+ A, Urine Urobilinogen 2.0, Ur Leukocyte Esterase Trace, Urine RBC 10-20, Urine WBC Occasional, Ur Squamous Epith Cells Occasional, Urine Bacteria Trace, Urine HCG, Qual Negative 08/03/24 13:40: GGT 572 H, Lactate Dehydrogenase 853 H, Acetaminophen < 10 L, Monoscreen Negative 08/03/24 13:41: WBC 1.6 L*, RBC 4.24, Hgb 12.8, Hct 37.6, MCV 88.7, MCH 30.2, MCHC 34.0, RDW 12.9, Plt Count 112 L, MPV 10.4, Neut % (Auto) 53.7, Lymph % (Auto) 32.3, [place] % (Auto) 10.8 H, Eos % (Auto) 0.0 L, Baso % (Auto) 1.3, Neut # (Auto) 0.9 L*, Lymph # (Auto) 0.5 L, [place] # (Auto) 0.2, Eos # (Auto) 0.0, Baso # (Auto) 0.0, Total Counted 50, Neutrophils % (Manual) 20 L, Band Neutrophils % 30.0 H, Lymphocytes % (Manual) 34, Atypical Lymphs % 2.0, Monocytes % (Manual) 4, Myelocytes % 8 H, Blast Cells % 2.0, Platelet Estimate Slight dec, RBC Morphology Normal, PT 11.9, INR 1.08, Sodium 129 L, Potassium 3.9, Chloride 98, Carbon Dioxide 27, Anion Gap 7.9, BUN 15, Creatinine 0.90, Estimated Creat Clear 90, Estimated GFR 65, Est GFR ( Amer) 79, Glucose 121 H, Calcium 8.9, Magnesium 1.9, Total Bilirubin 2.0 H, AST 298 H, ALT 252 H, Alkaline Phosphatase 277 H, Total Protein 6.6, Albumin 4.0, Globulin 2.6, Albumin/Globulin Ratio 1.5, Lipase 130, Procalcitonin 0.373, HCV Ab ALEC w/Rflx PCR Qn Negative 08/03/24 14:49: Chlamy pneumoniae PCR Not detected, Adenovirus (PCR) Not detected, B. pertussis DNA (PCR) Not detected, Coronavirus OC43 (PCR) Not detected, Coronavirus HKU1 (PCR) Not detected, Coronavirus 229E (PCR) Not detected, SARS-CoV-2 (PCR) Not detected, Coronavirus NL63 (PCR) Not detected, Human Metapneumovir PCR Not detected, Influenza A (H1) PCR Not detected, Influ A (H1N1/09) PCR Not detected, Influenza A (H3) PCR Not detected, Influenza Type A (PCR) Not detected, Influenza Type B (PCR) Not detected, M. pneumoniae (PCR) Not detected, Parainfluenza 1 (PCR) Not detected, Parainfluenza 2 (PCR) Not detected, Parainfluenza 3 (PCR) Not detected, Parainfluenza 4 (PCR) Not detected, RSV (PCR) Not detected, Entero/Rhino (PCR) Not detected 08/03/24 16:46: HIV Ag/Ab Combo Qual Negative 08/04/24 06:18: Sodium 135 L, Potassium 3.7, Chloride 105, Carbon Dioxide 29, Anion Gap 4.7 L, BUN 14, Creatinine 0.90, Estimated Creat Clear 96, Estimated GFR 65, Est GFR ( Amer) 79, Glucose 108 H, Calcium 8.0 L, Magnesium 1.9, Total Bilirubin 1.9 H, AST 231 H, ALT 208 H, Alkaline Phosphatase 241 H, Total Protein 5.4 L, Albumin 3.0 L D, Globulin 2.4, Albumin/Globulin Ratio 1.3 I & O for Labs for Last 24 Hours: Intake & Output 08/01/24 08/02/24 08/03/24 08/04/24 23:59 23:59 23:59 23:59 Output Total 0 / 0 Balance 0 / 0 Weight 182 lb 4.8 oz 186 lb 6.4 oz Comments:: Normoactive bowel sounds, soft, nondistended, mild tenderness in the right upper quadrant, no Grullon sign Results Labs 08/03/24 13:41 08/04/24 06:18 Labs: Laboratory Results - last 24 hr 08/03/24 13:18: Urine Color Yellow, Urine Appearance Clear, Urine pH 6.0, Ur Specific [place] 1.015, Urine Protein Trace, Urine Glucose (UA) Negative, Urine Ketones Negative, Urine Blood 3+ A, Urine Nitrate Negative, Urine Bilirubin 1+ A, Urine Urobilinogen 2.0, Ur Leukocyte Esterase Trace, Urine RBC 10-20, Urine WBC Occasional, Ur Squamous Epith Cells Occasional, Urine Bacteria Trace, Urine HCG, Qual Negative 08/03/24 13:40: GGT 572 H, Lactate Dehydrogenase 853 H, Acetaminophen < 10 L, Monoscreen Negative 08/03/24 13:41: WBC 1.6 L*, RBC 4.24, Hgb 12.8, Hct 37.6, MCV 88.7, MCH 30.2, MCHC 34.0, RDW 12.9, Plt Count 112 L, MPV 10.4, Neut % (Auto) 53.7, Lymph % (Auto) 32.3, [place] % (Auto) 10.8 H, Eos % (Auto) 0.0 L, Baso % (Auto) 1.3, Neut # (Auto) 0.9 L*, Lymph # (Auto) 0.5 L, [place] # (Auto) 0.2, Eos # (Auto) 0.0, Baso # (Auto) 0.0, Total Counted 50, Neutrophils % (Manual) 20 L, Band Neutrophils % 30.0 H, Lymphocytes % (Manual) 34, Atypical Lymphs % 2.0, Monocytes % (Manual) 4, Myelocytes % 8 H, Blast Cells % 2.0, Platelet Estimate Slight dec, RBC Morphology Normal, PT 11.9, INR 1.08, Sodium 129 L, Potassium 3.9, Chloride 98, Carbon Dioxide 27, Anion Gap 7.9, BUN 15, Creatinine 0.90, Estimated Creat Clear 90, Estimated GFR 65, Est GFR ( Amer) 79, Glucose 121 H, Calcium 8.9, Magnesium 1.9, Total Bilirubin 2.0 H, AST 298 H, ALT 252 H, Alkaline Phosphatase 277 H, Total Protein 6.6, Albumin 4.0, Globulin 2.6, Albumin/Globulin Ratio 1.5, Lipase 130, Procalcitonin 0.373, HCV Ab ALEC w/Rflx PCR Qn Negative 08/03/24 14:49: Chlamy pneumoniae PCR Not detected, Adenovirus (PCR) Not detected, B. pertussis DNA (PCR) Not detected, Coronavirus OC43 (PCR) Not detected, Coronavirus HKU1 (PCR) Not detected, Coronavirus 229E (PCR) Not detected, SARS-CoV-2 (PCR) Not detected, Coronavirus NL63 (PCR) Not detected, Human Metapneumovir PCR Not detected, Influenza A (H1) PCR Not detected, Influ A (H1N1/09) PCR Not detected, Influenza A (H3) PCR Not detected, Influenza Type A (PCR) Not detected, Influenza Type B (PCR) Not detected, M. pneumoniae (PCR) Not detected, Parainfluenza 1 (PCR) Not detected, Parainfluenza 2 (PCR) Not detected, Parainfluenza 3 (PCR) Not detected, Parainfluenza 4 (PCR) Not detected, RSV (PCR) Not detected, Entero/Rhino (PCR) Not detected 08/03/24 16:46: HIV Ag/Ab Combo Qual Negative 08/04/24 06:18: Sodium 135 L, Potassium 3.7, Chloride 105, Carbon Dioxide 29, Anion Gap 4.7 L, BUN 14, Creatinine 0.90, Estimated Creat Clear 96, Estimated GFR 65, Est GFR ( Amer) 79, Glucose 108 H, Calcium 8.0 L, Magnesium 1.9, Total Bilirubin 1.9 H, AST 231 H, ALT 208 H, Alkaline Phosphatase 241 H, Total Protein 5.4 L, Albumin 3.0 L D, Globulin 2.4, Albumin/Globulin Ratio 1.3 Assessment and Plan *Assessment and plan (1) Right upper quadrant abdominal pain: Status: Acute Category: Medical Code(s): R10.11 - Right upper quadrant pain (2) Elevated liver enzymes: Status: Acute Category: Medical Code(s): R74.8 - Abnormal levels of other serum enzymes (3) Elevated bilirubin: Status: Acute Category: Medical Code(s): R17 - Unspecified jaundice (4) Tick bite: Status: Acute Category: Medical Code(s): W57.XXXA - Bitten or stung by nonvenomous insect and other nonvenomous arthropods, initial encounter Plan 1. Right upper quadrant abdominal pain with elevated liver enzymes and increased total bilirubin. Her ultrasound and CAT scan do not show gallstones or bile duct dilation. Her tick bite does raise the question of tickborne disease and she is being tested for Lyme's disease, acute viral hepatitis (although not generally transmissible by ticks), ehrlichiosis. I would also check for Q fever which can result in elevated liver chemistries and is also tickborne disease. I am still concerned about the possibility of choledocholithiasis with her clinical history and elevated liver chemistries. I would recommend MRCP today.
[2024-08-04 08:00] VITALS: BP 109/62; PULSE 71; RESP 14; TEMP 36.8; O2SAT 92
[2024-08-04 08:08] LABS: Eosinophils % 2 % (0-3); Lymphocytes % 32 % (10-50); Monocytes % 7 % (2-9); Myelocytes % 2 (0-1); Neutrophils % 29 % (42-76); Total Cells Counted 100
[2024-08-04 08:28] LABS: RBC Morphology Normal
[2024-08-04 08:29] LABS: Hemoglobin 11.2 g/dL (12.2-16.2); Platelet Estimate Slight Decrease
--- NOTE | 2024-08-04 09:19 | MR_ITS ---
FINAL REPORT CLINICAL HISTORY: RUQ abdominal pain and elevated LFTs COMPARISON: 08/03/2024 FINDINGS: Multiplanar MR imaging of the abdomen was performed without and with contrast. Images of the liver reveal no evidence of mass. There is no evidence of biliary ductal dilatation or choledocholithiasis. The gallbladder has an unremarkable appearance. There is mild splenomegaly. Moderate right renal scarring is seen. No abnormal fluid collection is seen. No abnormal contrast enhancement is seen on the postcontrast images. IMPRESSION: Nonspecific, mild splenomegaly. Right renal scarring. No evidence of biliary obstruction or choledocholithiasis. Reviewed, Interpreted and Dictated by James Chaudhry MD Transcribed by Crissy Peterson Authenticated and [facility]
[2024-08-04] MEDS: GADOTERIDOL INJ 20ML SYRINGE 18 ML IV (12:29)
[2024-08-04] MEDS: 0.9 % SODIUM CHLORIDE 50 ML VIAL IV (12:29)
[2024-08-04] MEDS: LORATADINE 10MG TABLET 10 MG PO (14:19)
[2024-08-04 14:47] LABS: Lyme Ab CIA Negative (Negative)
[2024-08-04 16:00] VITALS: BP 110/72; PULSE 70; RESP 15; TEMP 37.1; O2SAT 97
[2024-08-04 17:38] LABS: Basophils % 0.4 % (0.1-2.0); Hematocrit 32.5 % (37.0-47.0); Hemoglobin 11.1 g/dL (12.2-16.2); Immature Granulocytes # 0.03 10^3uL; Immature Granulocytes % 1.1 %; Lymphocytes # 1.5 K/mm3 (0.7-4.5); Lymphocytes % 55.8 % (10-50); Mean Corpuscular HGB Conc 34.2 g/dL (31.8-35.4); Mean Corpuscular Hemoglobin 30.7 pg (27.0-31.2); Mean Platelet Volume 10.9 fl (7.4-10.4); Monocytes # 0.3 K/mm3 (0.1-1.0); Monocytes % 10.5 % (1.7-9.3); Neutrophils # 0.9 K/mm3 (1.8-7.8); Neutrophils % 32.2 % (37.0-80.0); Nucleated Red Blood Cells # 0 10^3/uL; Nucleated Red Blood Cells % 0 %; Platelet Count 91 K/mm3 (142-424); Red Blood Count 3.61 M/mm3 (4.20-5.40); Red Cell Distribution Width 13.1 % (11.5-17.5); Red Cell Distribution Width-SD 43.2 fL; White Blood Count 2.7 K/mm3 (4.8-10.8)
[2024-08-04 17:41] LABS: MANUAL DIFFERENTIAL MANUAL DIFFERENTIAL (MANUAL DIFF)
[2024-08-04 18:41] LABS: Eosinophils % 3 % (0-3); Lymphocytes % 44 % (10-50); Monocytes % 17 % (2-9); Neutrophils % 29 % (42-76); Total Cells Counted 100
[2024-08-04 18:42] LABS: Platelet Estimate Slight Decrease; RBC Morphology Normal
[2024-08-04 20:00] VITALS: BP 105/68; PULSE 70; RESP 16; TEMP 37; O2SAT 96
--- NOTE | 2024-08-04 21:01 | EXP.PN ---
Subjective *Date: 08/04/24 *Time: 21:01 Interval history: Patient feeling much better today, LFTs improving. Continues to be neutropenic, WBC slightly improved to 1.7 today. If patient continues to feel better tomorrow, discharge with doxycycline. Exam Data for Last 24 hours Vital signs and Labs for Last 24 Hours: Temp Pulse Resp BP Pulse Ox O2 Del Method 98.8 F 70 15 110/72 97 Room Air 08/04/24 16:00 08/04/24 16:00 08/04/24 16:00 08/04/24 16:00 08/04/24 16:00 08/04/24 18:49 Laboratory Results - last 24 hr 08/03/24 13:41: Lyme Disease Antibody Negative 08/04/24 06:18: WBC 1.7 L*, RBC 3.66 L, Hgb 11.2 L D, Hct 33.1 L, MCV 90.4, MCH 30.6, MCHC 33.8, RDW 13.0, Plt Count 84 L, MPV 11.1 H, Neut % (Auto) 43.2, Lymph % (Auto) 43.1, [place] % (Auto) 10.9 H, Eos % (Auto) 0.0 L, Baso % (Auto) 1.1, Neut # (Auto) 0.8 L*, Lymph # (Auto) 0.8, [place] # (Auto) 0.2, Eos # (Auto) 0.0, Baso # (Auto) 0.0, Total Counted 100, Neutrophils % (Manual) 29 L, Band Neutrophils % 24.0 H, Lymphocytes % (Manual) 32, Atypical Lymphs % 3.0, Monocytes % (Manual) 7, Eosinophils % (Manual) 2, Myelocytes % 2 H, Blast Cells % 1.0, Platelet Estimate Slight decrease, RBC Morphology Normal, PT 11.9, INR 1.08, Sodium 135 L, Potassium 3.7, Chloride 105, Carbon Dioxide 29, Anion Gap 4.7 L, BUN 14, Creatinine 0.90, Estimated Creat Clear 96, Estimated GFR 65, Est GFR ( Amer) 79, Glucose 108 H, Calcium 8.0 L, Magnesium 1.9, Total Bilirubin 1.9 H, AST 231 H, ALT 208 H, Alkaline Phosphatase 241 H, Total Protein 5.4 L, Albumin 3.0 L D, Globulin 2.4, Albumin/Globulin Ratio 1.3 08/04/24 17:23: WBC 2.7 L D, RBC 3.61 L, Hgb 11.1 L, Hct 32.5 L, MCV 90.0, MCH 30.7, MCHC 34.2, RDW 13.1, Plt Count 91 L, MPV 10.9 H, Neut % (Auto) 32.2 L, Lymph % (Auto) 55.8 H, [place] % (Auto) 10.5 H, Eos % (Auto) 0.0 L, Baso % (Auto) 0.4, Neut # (Auto) 0.9 L*, Lymph # (Auto) 1.5, [place] # (Auto) 0.3, Eos # (Auto) 0.0, Baso # (Auto) 0.0, Total Counted 100, Neutrophils % (Manual) 29 L, Band Neutrophils % 2.0, Lymphocytes % (Manual) 44, Atypical Lymphs % 5.0, Monocytes % (Manual) 17 H, Eosinophils % (Manual) 3, Platelet Estimate Slight decrease, RBC Morphology Normal I & O for Last 24 hours: Intake & Output 08/01/24 08/02/24 08/03/24 08/04/24 23:59 23:59 23:59 23:59 Intake Total 280 / 280 Output Total 0 / 0 0 / 0 Balance 0 / 0 280 / 280 Weight 82.69 kg 84.55 kg Microbiology Reports for the Last 24 Hours: Microbiology 08/03/24 14:45 Blood Blood Culture - Preliminary NO GROWTH AFTER 24 HOURS 08/03/24 14:51 Blood Blood Culture - Preliminary NO GROWTH AFTER 24 HOURS Constitutional Constitutional: no acute distress *Routine HEENT Exam Head: Present normocephalic Eye: Present EOMI and PERRL ENT: Present mucous membranes moist *Routine Neck Exam Neck: Present supple; Absent lymphadenopathy *Routine Respiratory Exam Respiratory: Present CTA bilaterally *Routine Cardiovascular Exam Cardiovascular: Present RRR *Routine Abdominal Exam Abdominal: Present soft and normoactive bowel sounds; Absent tenderness *Routine Extremities Exam Extremities: Absent cyanosis, clubbing or edema *Routine Skin Exam Skin: Present warm; Absent rash *Routine Neurological Exam Neurological: Present alert and oriented X3 Assessment and Plan *Assessment and plan (1) Abdominal pain: Status: Acute Category: Medical Code(s): R10.9 - Unspecified abdominal pain (2) Transaminitis: Status: Acute Category: Medical Code(s): R74.01 - Elevation of levels of liver transaminase levels (3) Neutropenia: Status: Acute Category: Medical Code(s): D70.9 - Neutropenia, unspecified (4) Tick bite: Status: Acute Category: Medical Code(s): W57.XXXA - Bitten or stung by nonvenomous insect and other nonvenomous arthropods, initial encounter (5) Hypertension: Status: Chronic Category: Medical Code(s): I10 - Essential (primary) hypertension Plan Magaly Sanchez is a 54-year-old female who presents with abdominal pain. Found to have transaminitis and neutropenia along with thrombocytopenia. Constellation of symptoms highly suggestive of tickborne illness such as ehrlichia or anaplasmosis. Discussed case with ER physician, request admission for further management and antibiotics. Abdominal pain Transaminitis Neutropenia/thrombocytopenia - CT of abdomen personally reviewed, gallbladder contracted. Does not appear to have any identifiable radiopaque stones - Initial labs with bilirubin 2.0, AST 298, ALT 252, alk phos 277, GGT 572. White count 1.6 with neutrophil count of 800. Platelets 112. Findings concerning for mild liver injury. Differential includes hepatitis, tickborne illness, choledocholithiasis, among other etiologies ? Patient feels better today, rash seems to have also improved. LFTs also improving. ? Continues to be neutropenic, WBC marginally improved to 1.7 with ANC 900. No signs of sepsis. ? Continue doxycycline 100 mg twice daily, Zosyn. ? If patient continues to improve tomorrow, transition to p.o. doxycycline and anticipate discharge. - Ordered repeat CBC, CMP, magnesium for the morning. Ehrlichia level pending. - GI consulted, obtained MRCP without evidence of biliary obstruction. Hypertension: On home lisinopril/HCTZ. Holding blood pressure medication in the setting of dehydration and soft pressures at this time. Holding anticoagulation in the setting of thrombocytopenia Full code
[2024-08-05] VITALS: BP 117/63; PULSE 79; RESP 18; TEMP 37.4; O2SAT 97
[2024-08-05 04:00] VITALS: BP 112/74; PULSE 77; RESP 16; TEMP 37; O2SAT 96; BMI 33.2
[2024-08-05] MEDS: DOXYCYCLINE HYCLATE 100 MG in 0.9 % SODIUM CHLORIDE 250 ML 166.667 MG IV (04:24)
--- NOTE | 2024-08-05 04:53 | PC.NURSE ---
Pt AOx4. Denies pain, but states she is feeling unwell. Pt is currently resting in bed with eyes open. VSS. Respirations even and unlabored. Bed low, locked, and call light is in reach.
[2024-08-05] MEDS: PIPERACILLIN/TAZO 4.5 GM in 0.9 % SODIUM CHLORIDE 100 ML IV (06:24)
[2024-08-05 06:56] LABS: Alanine Aminotransferase 223 U/L (12-78); Albumin Level 3.1 g/dl (3.5-5.0); Albumin/Globulin Ratio 1.3 (1.1-1.8); Alkaline Phosphatase 256 U/L (38-126); Aspartate Amino Transferase 222 U/L (14-36); Bilirubin,Total 1.7 mg/dl (0.2-1.3); Blood Urea Nitrogen 11 mg/dl (7-17); Calcium 7.9 mg/dl (8.4-10.2); Carbon Dioxide 29 mmol/L (22.0-30.0); Chloride 105 mmol/L (98-107); Creatinine Clearance Estimated 105 mL/min (50-200); Estimated Glomerular Filt Rate 75 ml/min (>60); GFR (African American) 91 ML/MIN (>60); Globulin 2.4 g/dL (1.3-3.2); Glucose 101 mg/dl (74-100); Magnesium 1.8 mg/dl (1.6-2.3); Sodium 135 mmol/L (136-145); Total Protein,Serum 5.5 g/dl (6.3-8.2)
[2024-08-05 07:15] LABS: HBsAg Screen Negative (Negative); HCV Ab Non Reactive (Non Reactive); Hep A Ab, IGM Negative (Negative); Hep B Core Ab, IgM Negative (Negative)
--- NOTE | 2024-08-05 07:30 | EXP.PN ---
Subjective *Date: 08/05/24 *Time: 07:30 Interval history: Patient awake and alert. Still nauseated but has no right upper quadrant abdominal pain Exam Data for Last 24 hours Vital signs and Labs for Last 24 Hours: Temp Pulse Resp BP Pulse Ox O2 Del Method 98.6 F 77 16 112/74 96 Room Air 08/05/24 04:00 08/05/24 04:00 08/05/24 04:00 08/05/24 04:00 08/05/24 04:00 08/05/24 06:28 Laboratory Results - last 24 hr 08/03/24 13:41: Lyme Disease Antibody Negative 08/03/24 16:46: Hepatitis A IgM Ab Negative, Hep Bs Antigen Negative, Hep B Core IgM Ab Negative, Hepatitis C Antibody Non reactive, HCV RNA PCR Test Info Comment 08/04/24 06:18: Hgb 11.2 L D, Total Counted 100, Neutrophils % (Manual) 29 L, Band Neutrophils % 24.0 H, Lymphocytes % (Manual) 32, Atypical Lymphs % 3.0, Monocytes % (Manual) 7, Eosinophils % (Manual) 2, Myelocytes % 2 H, Blast Cells % 1.0, Platelet Estimate Slight decrease, RBC Morphology Normal, PT 11.9, INR 1.08 08/04/24 17:23: WBC 2.7 L D, RBC 3.61 L, Hgb 11.1 L, Hct 32.5 L, MCV 90.0, MCH 30.7, MCHC 34.2, RDW 13.1, Plt Count 91 L, MPV 10.9 H, Neut % (Auto) 32.2 L, Lymph % (Auto) 55.8 H, [place] % (Auto) 10.5 H, Eos % (Auto) 0.0 L, Baso % (Auto) 0.4, Neut # (Auto) 0.9 L*, Lymph # (Auto) 1.5, [place] # (Auto) 0.3, Eos # (Auto) 0.0, Baso # (Auto) 0.0, Total Counted 100, Neutrophils % (Manual) 29 L, Band Neutrophils % 2.0, Lymphocytes % (Manual) 44, Atypical Lymphs % 5.0, Monocytes % (Manual) 17 H, Eosinophils % (Manual) 3, Platelet Estimate Slight decrease, RBC Morphology Normal 08/05/24 06:11: Sodium 135 L, Potassium 4.0, Chloride 105, Carbon Dioxide 29, Anion Gap 5.0, BUN 11, Creatinine 0.80, Estimated Creat Clear 105, Estimated GFR 75, Est GFR ( Amer) 91, Glucose 101 H, Calcium 7.9 L, Magnesium 1.8, Total Bilirubin 1.7 H, AST 222 H, ALT 223 H, Alkaline Phosphatase 256 H, Total Protein 5.5 L, Albumin 3.1 L, Globulin 2.4, Albumin/Globulin Ratio 1.3 I & O for Last 24 hours: Intake & Output 08/02/24 08/03/24 08/04/24 08/05/24 23:59 23:59 23:59 23:59 Intake Total 280 / 730 450 / 450 Output Total 0 / 0 0 / 0 0 / 0 Balance 0 / 0 280 / 730 450 / 450 Weight 182 lb 4.8 oz 186 lb 6.4 oz 180 lb 7 oz Microbiology Reports for the Last 24 Hours: Microbiology 08/03/24 14:45 Blood Blood Culture - Preliminary NO GROWTH AFTER 24 HOURS 08/03/24 14:51 Blood Blood Culture - Preliminary NO GROWTH AFTER 24 HOURS Constitutional Constitutional: no acute distress *Routine HEENT Exam Head: Present normocephalic Eye: Present EOMI and PERRL ENT: Present mucous membranes moist *Routine Neck Exam Neck: Present supple; Absent lymphadenopathy *Routine Respiratory Exam Respiratory: Present CTA bilaterally *Routine Cardiovascular Exam Cardiovascular: Present RRR *Routine Abdominal Exam Abdominal: Present soft and normoactive bowel sounds; Absent tenderness *Routine Extremities Exam Extremities: Absent cyanosis, clubbing or edema *Routine Skin Exam Skin: Present warm; Absent rash *Routine Neurological Exam Neurological: Present alert and oriented X3 Assessment and Plan *Assessment and plan (1) Elevated liver enzymes: Status: Acute Category: Medical Code(s): R74.8 - Abnormal levels of other serum enzymes (2) Tick bite: Status: Acute Category: Medical Code(s): W57.XXXA - Bitten or stung by nonvenomous insect and other nonvenomous arthropods, initial encounter (3) Transaminitis: Status: Acute Category: Medical Code(s): R74.01 - Elevation of levels of liver transaminase levels Plan 1. Initial right upper quadrant abdominal pain. The patient's MRCP showed no choledocholithiasis. The patient's transaminases are still elevated. Her viral hepatitis testing for A, B, and C were normal and her Lyme's disease testing was normal. She had an negative monoscreen. I will obtain additional serologic testing. If her liver chemistries remain elevated, would consider percutaneous liver biopsy.
[2024-08-05 08:00] VITALS: BP 135/70; PULSE 79; RESP 16; TEMP 37.3; O2SAT 93
[2024-08-05 08:05] LABS: Basophils % 0.4 % (0.1-2.0); Hematocrit 34.2 % (37.0-47.0); Hemoglobin 11.3 g/dL (12.2-16.2); Immature Granulocytes # 0.04 10^3uL; Immature Granulocytes % 0.8 %; Lymphocytes # 2.3 K/mm3 (0.7-4.5); Lymphocytes % 44.5 % (10-50); Mean Corpuscular Hemoglobin 30.1 pg (27.0-31.2); Mean Platelet Volume 11.3 fl (7.4-10.4); Monocytes # 0.6 K/mm3 (0.1-1.0); Neutrophils # 2.2 K/mm3 (1.8-7.8); Neutrophils % 42.3 % (37.0-80.0); Nucleated Red Blood Cells # 0 10^3/uL; Nucleated Red Blood Cells % 0 %; Platelet Count 108 K/mm3 (142-424); Red Blood Count 3.76 M/mm3 (4.20-5.40); Red Cell Distribution Width 13.1 % (11.5-17.5); Red Cell Distribution Width-SD 43.8 fL; White Blood Count 5.1 K/mm3 (4.8-10.8)
--- NOTE | 2024-08-05 08:19 | P.DS_ITS ---
General Admission date:: 08/03/24 Discharge date: 08/05/24 HPI HPI HPI: Mrs. Powell is a 54-year-old female who is here for hospital admission after being admitted yesterday for right upper quadrant abdominal pain/right flank pain that radiates into the back. The patient does state that she has had this for 2 days. The patient also presented with elevated liver enzymes and a total bilirubin of 2.0 (down to 1.9 today). She also had elevated AST 298, ALT 252 and alkaline phosphatase 277. Her lipase was normal at 130. The patient also had pancytopenia with white blood cell count of 1.6 (54% neutrophils) and platelet count of 112,000. Her platelet count today is 84,000. She was found to have a tick on her back. She does state that she is exposed to ticks often because [place] and her dog gets ticks often as well. The patient has had low-grade fever, headache, nausea and some dizziness. She has noted darkened urine. Her imaging with CAT scan did not show any gallbladder abnormality, gallstones or bile duct dilation. Her ultrasound showed a contracted gallbladder without evidence of biliary ductal dilation. Her CBD was 6 mm. Hospital Course Hospital Course Hospital Course: Magaly Sanchez is a 54-year-old female who presents with abdominal pain. Found to have transaminitis and neutropenia along with thrombocytopenia. Constellation of symptoms highly suggestive of tickborne illness such as ehrlichia or anaplasmosis. Discussed case with ER physician, request admission for further management and antibiotics. Abdominal pain Transaminitis Neutropenia/thrombocytopenia - CT of abdomen personally reviewed, gallbladder contracted. Does not appear to have any identifiable radiopaque stones. Initial labs with bilirubin 2.0, AST 298, ALT 252, alk phos 277, GGT 572. White count 1.6 with neutrophil count of 800. Platelets 112. Findings concerning for mild liver injury. Differential includes hepatitis, tickborne illness, choledocholithiasis, among other etiologies. Patient symptoms have shown improvement with improvement in subjective symptoms along with rash after initiating Zosyn and doxycycline. Neutropenia resolved. GI consulted, MRCP obtained. Did not show any evidence of biliary obstruction. Lyme antibody negative, mono negative, HIV and hepatitis panel negative. Liver enzymes marginally improved from admission, bilirubin 1.7, AST 222, ALT 223, alk phos 256. MRCP obtained, negative for obstruction. White count improved to 5.1 today, no longer neutropenic. Platelets are rebounding, at 108 today. Hemoglobin 11.3. Q fever antibody, Francisella tularensis, and Ehrlichia still pending at day of discharge. Presentation, response to doxycycline, most consistent with tickborne illness. Highly suspicious for Ehrlichia/anaplasmosis. - Follow-up with GI as an outpatient to monitor for resolution of liver enzymes and to complete evaluation. Stable to discharge at this time. Hypertension: At home on lisinopril/HCTZ. Held due to dehydration and initial presentation. Along with soft blood pressure. Blood pressure improving. Okay to resume after discharge. Total time spent on discharge 32 minutes in counseling, documentation, chart review, and direct care with patient. Exam Data for Last 24 hours Vital signs and Labs for Last 24 Hours: Temp Pulse Resp BP Pulse Ox O2 Del Method 98.6 F 77 16 112/74 96 Room Air 08/05/24 04:00 08/05/24 04:00 08/05/24 04:00 08/05/24 04:00 08/05/24 04:00 08/05/24 06:28 Laboratory Results - last 24 hr 08/03/24 13:41: Lyme Disease Antibody Negative 08/03/24 16:46: Hepatitis A IgM Ab Negative, Hep Bs Antigen Negative, Hep B Core IgM Ab Negative, Hepatitis C Antibody Non reactive, HCV RNA PCR Test Info Comment 08/04/24 06:18: Hgb 11.2 L D, Total Counted 100, Neutrophils % (Manual) 29 L, Band Neutrophils % 24.0 H, Lymphocytes % (Manual) 32, Atypical Lymphs % 3.0, Monocytes % (Manual) 7, Eosinophils % (Manual) 2, Myelocytes % 2 H, Blast Cells % 1.0, Platelet Estimate Slight decrease, RBC Morphology Normal 08/04/24 17:23: WBC 2.7 L D, RBC 3.61 L, Hgb 11.1 L, Hct 32.5 L, MCV 90.0, MCH 30.7, MCHC 34.2, RDW 13.1, Plt Count 91 L, MPV 10.9 H, Neut % (Auto) 32.2 L, Lymph % (Auto) 55.8 H, [place] % (Auto) 10.5 H, Eos % (Auto) 0.0 L, Baso % (Auto) 0.4, Neut # (Auto) 0.9 L*, Lymph # (Auto) 1.5, [place] # (Auto) 0.3, Eos # (Auto) 0.0, Baso # (Auto) 0.0, Total Counted 100, Neutrophils % (Manual) 29 L, Band Neutrophils % 2.0, Lymphocytes % (Manual) 44, Atypical Lymphs % 5.0, Monocytes % (Manual) 17 H, Eosinophils % (Manual) 3, Platelet Estimate Slight decrease, RBC Morphology Normal 08/05/24 06:11: Sodium 135 L, Potassium 4.0, Chloride 105, Carbon Dioxide 29, Anion Gap 5.0, BUN 11, Creatinine 0.80, Estimated Creat Clear 105, Estimated GFR 75, Est GFR ( Amer) 91, Glucose 101 H, Calcium 7.9 L, Magnesium 1.8, Total Bilirubin 1.7 H, AST 222 H, ALT 223 H, Alkaline Phosphatase 256 H, Total Protein 5.5 L, Albumin 3.1 L, Globulin 2.4, Albumin/Globulin Ratio 1.3 I & O for Last 24 hours: Intake & Output 08/02/24 08/03/24 08/04/24 08/05/24 23:59 23:59 23:59 23:59 Intake Total 280 / 730 450 / 450 Output Total 0 / 0 0 / 0 0 / 0 Balance 0 / 0 280 / 730 450 / 450 Weight 82.69 kg 84.55 kg 81.845 kg Microbiology Reports for the Last 24 Hours: Microbiology 08/03/24 14:45 Blood Blood Culture - Preliminary NO GROWTH AFTER 24 HOURS 08/03/24 14:51 Blood Blood Culture - Preliminary NO GROWTH AFTER 24 HOURS Constitutional Constitutional: no acute distress and cooperative *Routine HEENT Exam Head: Present normocephalic Eye: Present EOMI and PERRL ENT: Present mucous membranes moist *Routine Neck Exam Neck: Present supple; Absent lymphadenopathy *Routine Respiratory Exam Respiratory: Present CTA bilaterally; Absent rhonchi, wheezes or crackles *Routine Cardiovascular Exam Cardiovascular: Present RRR *Routine Abdominal Exam Abdominal: Present soft and normoactive bowel sounds; Absent tenderness *Routine Rectal Exam Patient deferred: visual exam *Routine Exam Patient deferred: external exam *Routine Extremities Exam Extremities: Absent cyanosis, clubbing or edema *Routine Skin Exam Skin: Present warm; Absent rash *Routine Neurological Exam Neurological: Present alert, oriented X3 and moving all extremities; Absent altered mental status Results Data Completed and Pending Labs on day of discharge: Labs from last 24 hours 08/05/24 08/04/24 08/04/24 06:11 17:23 06:18 WBC 2.7 L D RBC 3.61 L Hgb 11.1 L 11.2 L D Hct 32.5 L MCV 90.0 MCH 30.7 MCHC 34.2 RDW 13.1 Plt Count 91 L MPV 10.9 H Neut % (Auto) 32.2 L Lymph % (Auto) 55.8 H [place] % (Auto) 10.5 H Eos % (Auto) 0.0 L Baso % (Auto) 0.4 Neut # (Auto) 0.9 L* Lymph # (Auto) 1.5 [place] # (Auto) 0.3 Eos # (Auto) 0.0 Baso # (Auto) 0.0 Total Counted 100 100 Neutrophils % (Manual) 29 L 29 L Band Neutrophils % 2.0 24.0 H Lymphocytes % (Manual) 44 32 Atypical Lymphs % 5.0 3.0 Monocytes % (Manual) 17 H 7 Eosinophils % (Manual) 3 2 Myelocytes % 2 H Blast Cells % 1.0 Platelet Estimate Slight decrease Slight decrease RBC Morphology Normal Normal Sodium 135 L Potassium 4.0 Chloride 105 Carbon Dioxide 29 Anion Gap 5.0 BUN 11 Creatinine 0.80 Estimated Creat Clear 105 Estimated GFR 75 Est GFR ( Amer) 91 Glucose 101 H Calcium 7.9 L Magnesium 1.8 Total Bilirubin 1.7 H AST 222 H ALT 223 H Alkaline Phosphatase 256 H Total Protein 5.5 L Albumin 3.1 L Globulin 2.4 Albumin/Globulin Ratio 1.3 Lyme Disease Antibody Hepatitis A IgM Ab Hep Bs Antigen Hep B Core IgM Ab Hepatitis C Antibody HCV RNA PCR Test Info 08/03/24 08/03/24 16:46 13:41 WBC RBC Hgb Hct MCV MCH MCHC RDW Plt Count MPV Neut % (Auto) Lymph % (Auto) [place] % (Auto) Eos % (Auto) Baso % (Auto) Neut # (Auto) Lymph # (Auto) [place] # (Auto) Eos # (Auto) Baso # (Auto) Total Counted Neutrophils % (Manual) Band Neutrophils % Lymphocytes % (Manual) Atypical Lymphs % Monocytes % (Manual) Eosinophils % (Manual) Myelocytes % Blast Cells % Platelet Estimate RBC Morphology Sodium Potassium Chloride Carbon Dioxide Anion Gap BUN Creatinine Estimated Creat Clear Estimated GFR Est GFR ( Amer) Glucose Calcium Magnesium Total Bilirubin AST ALT Alkaline Phosphatase Total Protein Albumin Globulin Albumin/Globulin Ratio Lyme Disease Antibody Negative Hepatitis A IgM Ab Negative Hep Bs Antigen Negative Hep B Core IgM Ab Negative Hepatitis C Antibody Non reactive HCV RNA PCR Test Info Comment Preliminary micro results at discharge 08/03/24 14:45 Blood Culture - Preliminary Blood NO GROWTH AFTER 24 HOURS 08/03/24 14:51 Blood Culture - Preliminary Blood NO GROWTH AFTER 24 HOURS DS: Diagnosis Discharge Diagnosis (1) Elevated liver enzymes: Status: Acute Code(s): R74.8 - Abnormal levels of other serum enzymes (2) Tick bite: Status: Acute Code(s): W57.XXXA - Bitten or stung by nonvenomous insect and other nonvenomous arthropods, initial encounter (3) Transaminitis: Status: Acute Code(s): R74.01 - Elevation of levels of liver transaminase levels (4) Elevated bilirubin: Status: Acute Code(s): R17 - Unspecified jaundice (5) Right upper quadrant abdominal pain: Status: Acute Code(s): R10.11 - Right upper quadrant pain (6) Hypertension: Status: Chronic Code(s): I10 - Essential (primary) hypertension (7) Neutropenia: Status: Acute Code(s): D70.9 - Neutropenia, unspecified Meds Home Medications and Allergies Home Medications ?Medication ?Instructions ?Recorded ?Confirmed ?Type lisinopril 10 1 tab PO DAILY 08/03/24 08/03/24 History mg-hydrochlorothiazide 12.5 mg tablet doxycycline hyclate 100 mg capsule 100 mg PO BID 8 days #16 caps 08/05/24 Rx New Prescriptions to Start Prescriptions: doxycycline hyclate Rachid Winn Allergies Allergy/AdvReac Type Severity Reaction Status Date / Time No Known Allergies Allergy Verified 08/03/24 13:51 Discharge Plan Disposition Patient Disposition: Home, Self-Care Condition: Fair Discharge Order Discharge Orders: Discharge Order (Routine); Ordered 08/05/24 Ordered By: Rachid Winn Follow up Plan Follow up with: Abbe Forde II, MD [Staff Physician] - Enter time for follow up Provider,MD Margie [Primary Care Provider] - Enter time for follow up Prescriptions/Medication Reconciliation: New doxycycline hyclate 100 mg capsule 100 mg PO BID 8 Days Qty: 16 0RF Continued lisinopril-hydrochlorothiazide 10-12.5 mg tablet 1 tab PO DAILY Problem Reconciliation Problems Reviewed?: Yes Patient Discharge Instructions ACTIVITY: Continue current activity DIET: continue same diet Patient Instructions: DI for Acute Abdominal Pain, DI for Neutropenia Print Language: Korean Providers Primary Care Provider: Provider,Referral Admit Provider: Jose Ferreira Attending Provider: Jose Ferreira
[2024-08-05] MEDS: LORATADINE 10MG TABLET 10 MG PO (08:48)
[2024-08-05 13:45] LABS: Peripheral Smear Review Scanned Result
--- NOTE | 2024-08-06 10:00 | SW/DCPLANNER ---
Spoke with patient on the phone. Patient stated that she is good besides having a bad headache this morning. Patient stated that she is aware of her upcoming appointments but put the time and date in her phone and who the appointments were with. Patient stated that clinic pharmacy brought her new medicine to her room. Patient stated that she has no concerns or questions at this time. Ronal Dominguez
[2024-08-07 16:12] LABS: Lyme B. burgdorferi PCR Blood Negative (Negative)
[2024-08-11 17:21] LABS: Q Fever Phase I Negative (Neg:<1:16); Q Fever Phase II Negative (Neg:<1:16)
[2024-08-17 10:46] LABS: HGE IgG Titer NEGATIVE
[2024-08-17 10:47] LABS: HGE IgM Titer NEGATIVE
== END 2024-08-05 12:30 | disposition home or self-care (01) ==
LOC: ER 16:56 → 2ND 17:52
PROVIDERS: Internal Medicine Adolescent Medicine; Internal Medicine Gastroenterology; Physician Assistant; Admitting Provider Student in an Organized Health Care Education/Training Program; Emergency Provider Emergency Medicine; Visit Provider Student in an Organized Health Care Education/Training Program
DX: R10.11 Right upper quadrant pain (principal); R50.9 Fever, unspecified; E86.0 Dehydration; I10 Essential (primary) hypertension; D61.818 Other pancytopenia; D69.6 Thrombocytopenia, unspecified; D70.9 Neutropenia, unspecified; R74.8 Abnormal levels of other serum enzymes; R74.01 Elevation of levels of liver transaminase levels; S20.469A Insect bite (nonvenomous) of unspecified back wall of thorax, initial encounter; W57.XXXA Bitten or stung by nonvenomous insect and other nonvenomous arthropods, initial encounter; Z79.899 Other long term (current) drug therapy
CPT/HCPCS: 96361; 96374; 96375 ×2; 96376 ×2; 0223U; 36415; 74177; 74183; 76376; 76705; 80053; 80074; 80329; 81001; 81025; 82977; 83615; 83690; 83735; 84145; 85007; 85025; 85027; 85610; 86318; 86618; 86638; 86666; 86668; 87040; 87389; 87476; 87633; 93005; 99291; A9576; G0378; J1885; J2405; J2543; J7030; J7050; J7120; Q9967

== ENCOUNTER 2024-08-31 11:53 | Outpatient (CLI) | payer MEDICAID, SELFPAY ==
--- OUTSIDE RECORDS SUMMARY | 2024-08-31 11:56 | XMS_ITS | Clinical Summary ---
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 Name Role Phone Unavailable Primary Care Provider Unavailabl e Social History Tobacco Use Types Packs/Day Years Used Date Smoking Tobacco: Never Assessed Comments Unknown Sex and Gender Information Value Date Recorded Sex Assigned at Not on file Legal Sex Female 12:38 PM EDT Gender Identity Not on file Sexual Orientation Not on file Plan of Treatment Health Maintenance Due Date Last Done Comments Annual Wellness Exam 05/17/1974 DTaP/TDaP/Td (1 - Tdap) 05/17/1990 Hepatitis B Vaccine (1 of 3 - 19+ 3-dose series) 05/17/1990 Cervical Cancer Screening 05/17/1992 Pap Smear 05/17/1992 HPV/Pap Cotest 05/17/2001 Breast Cancer Screening 2011 Cologuard 05/17/2016 Colon Cancer Screening 05/17/2016 Colonoscopy 05/17/2016 FIT 05/17/2016 Sigmoidoscopy 05/17/2016 Virtual Colonography 05/17/2016 Pneumococcal Vaccine 50+ (1 of 1 - PCV) 05/17/2021 Zoster (1 of 2) 05/17/2021 COVID-19 Vaccine (1 - 2023-2 5 season) 2023 Influenza Vaccine (Season Ended) 2024 Meningococcal B Vaccine Aged Out No l onger eligible based on patient's age to complete this topic Insurance #[id number] [place] [address]
--- OUTSIDE RECORDS SUMMARY | 2024-08-31 11:56 | XMS_ITS | Clinical Summary ---
Author Organization [employer] [facility] Address [address] [place] [phone] Phone Care Team Providers Care Manager Client Name Role Phone Erika Patricio APRN Primary Care Physician [phone] Conditions or Problems Problem Name Problem Code Onset Date Status Entry Date Provider Comment Standard Description Annotate Body mass index (BMI) 29.0-29.9; adult Z68.29 (ICD-10-CM) 05/09 Active 05/09 Edith Anderson APRN Body mass index [BMI] 29.0-29.9, adult Body mass index (BMI) 31.0-31.9; adult Z68.31 (ICD-10-CM) 03/23 Correction 03/23 Edith Anderson APRN Body mass index [BMI] 31.0-31.9, adult Mole [id number] (SNOMED CT) 05/09 Active 05/09 Edith Anderson APRN Melanocytic nevus Body mass index (BMI) 31.0-31.9; adult Z68.31 (ICD-10-CM) 03/23 Removed 03/23 Lulu Gomez MD Body mass index [BMI] 31.0-31.9, adult Body mass index (BMI) 32.0-32.9; adult Z68.32 (ICD-10-CM) Correction Lulu Gomez MD Body mass index [BMI] 32.0-32.9, adult Body mass index (BMI) 32.0-32.9; adult Z68.32 (ICD-10-CM) Removed Sofiya Hanson MD Body mass index [BMI] 32.0-32.9, adult Presence of Essure implant contracepti ve [id number] (SNOMED CT) Active Sofiya Hanson MD Intrafallopian contraceptive implant in situ Body mass index (BMI) 30.0-30.9; adult Z68.30 (ICD-10-CM) 09/22 Correction 09/29 Sofiya Hanson MD Body mass index [BMI] 30.0-30.9, adult Body mass index (BMI) 30.0-30.9; adult Z68.30 (ICD-10-CM) 09/22 Removed 09/29 Sofiya Hanson MD Body mass index [BMI] 30.0-30.9, adult Body mass index (BMI) 30.0-30.9; adult Z68.30 (ICD-10-CM) 09/16 Correction 09/16 Sofiya Hanson MD Body mass index [BMI] 30.0-30.9, adult Bitten or stung by nonvenomous insect and other nonvenomous arthropods, sequela 30681035 (SNOMED CT) 09/22 Active 09/23 Sofiya Hanson MD Tick bite Elevated blood pressure reading without diagnosis of hypertensio n 927591410 (SNOMED CT) 09/02 Resolved 09/02 Tiffani Monique NEWSPAPER CORRESPONDENT Elevated blood-pressure reading without diagnosis of hypertension Seasonal allergies 312307711 (SNOMED CT) 09/16 Active 09/16 Tiffani Monique NEWSPAPER CORRESPONDENT Seasonal allergy Body mass index (BMI) 30.0-30.9; adult Z68.30 (ICD-10-CM) 09/16 Removed 09/16 Tiffani Monique NEWSPAPER CORRESPONDENT Body mass index [BMI] 30.0-30.9, adult Body mass index (BMI) 30.0-30.9; adult Z68.30 (ICD-10-CM) 08/12 Correction 08/12 Tiffani Monique NEWSPAPER CORRESPONDENT Body mass index [BMI] 30.0-30.9, adult Hypertensio n 82105299 (SNOMED CT) 09/16 Active 09/16 Tiffani Monique NEWSPAPER CORRESPONDENT Hypertensive disorder Screening for lipid disorder 961622627 (SNOMED CT) 09/02 Inactive 09/02 Tiffani Monique NEWSPAPER CORRESPONDENT Procedure carried out on subject Flank pain, left 918121537 (SNOMED CT) 09/02 Inactive 09/02 Tiffani Monique NEWSPAPER CORRESPONDENT Left flank pain Elevated blood pressure reading without diagnosis of hypertensio n 448403012 (SNOMED CT) 09/02 Removed 09/02 Tiffani Monique NEWSPAPER CORRESPONDENT Elevated blood-pressure reading without diagnosis of hypertension Counseling for nutrition Z71.3 (ICD-10-CM) 08/12 Inactive 08/12 Cielo Echevarria APRN Dietary counseling and surveillance Body mass index (BMI) 30.0-30.9; adult Z68.30 (ICD-10-CM) 08/12 Removed 08/12 Cielo Echevarria APRN Body mass index [BMI] 30.0-30.9, adult Body mass index (BMI) 29.0-29.9; adult Z68.29 (ICD-10-CM) 07/09 Correction 07/09 Cielo Echevarria APRN Body mass index [BMI] 29.0-29.9, adult Insect bite 774553628 (SNOMED CT) 08/12 Active 08/12 Cielo Echevarria APRN Insect bite - wound TICK Body mass index (BMI) 29.0-29.9; adult Z68.29 (ICD-10-CM) 07/09 Removed 07/09 Erika Patricio APRN Body mass index [BMI] 29.0-29.9, adult Body mass index (BMI) 28.0-28.9; adult Z68.28 (ICD-10-CM) 06/29 Correction 06/29 Erika Patricio NEWSPAPER CORRESPONDENT Body mass index [BMI] 28.0-28.9, adult Stenosis of cervix 90528766 (SNOMED CT) 07/09 Active 07/09 Erika Patricio NEWSPAPER CORRESPONDENT Stenosis of cervix Body mass index (BMI) 28.0-28.9; adult Z68.28 (ICD-10-CM) 06/29 Removed 06/29 Erika Patricio NEWSPAPER CORRESPONDENT Body mass index [BMI] 28.0-28.9, adult Female stress incontinenc e 67928164 (SNOMED CT) 06/29 Active 06/29 Erika Patricio NEWSPAPER CORRESPONDENT Female stress incontinence Family history of malignant neoplasm of uterus 215629711 (SNOMED CT) 06/29 Active 06/29 Erika Kellye NEWSPAPER CORRESPONDENT Family history of malignant neoplasm of uterus Mammographi c screening for breast cancer 58622318 (SNOMED CT) 06/29 Active 06/29 Erika Kellye NEWSPAPER CORRESPONDENT Screening mammography Screening for colon cancer 190722869 (SNOMED CT) 06/29 Active 06/29 Erika Patricio NEWSPAPER CORRESPONDENT Screening for malignant neoplasm of colon Screening for std 872364509 (SNOMED CT) 06/29 Active 06/29 Erika Patricio NEWSPAPER CORRESPONDENT Venereal disease screening ROUTINE GYNECOLOGIC AL EXAMINATION 48932755 (SNOMED CT) 06/29 Active 06/29 Erika Patricio NEWSPAPER CORRESPONDENT Gynecologic examination Abnormal uterine bleeding 61167969428 100 (SNOMED CT) 06/29 Active 06/29 Erika Patricio NEWSPAPER CORRESPONDENT Abnormal uterine bleeding Tobacco User 508649108 (SNOMED CT) 06/29 Active 06/29 Meri Castillo MA Tobacco user Medications Medication Instructions Start Date Stop Date Generic Name NDC Provider DOXYCYCLINE MONOHYDRATE 100 MG CAPS Take 1 capsule by mouth twice a day doxycycline monohydrate 02147866476 Edith Monica NEWSPAPER CORRESPONDENT JOSÉ MIGUEL ALLERGY 180 MG TABS TAKE 1 TABLET BY MOUTH ONCE A DAY fexofenadine 22483495356 Edith Monica NEWSPAPER CORRESPONDENT ZYRTEC ALLERGY 10 MG CAPS Take 1 capsule by mouth once a day for 30 days cetirizine 64821324018 Edith Monica NEWSPAPER CORRESPONDENT DOXYCYCLINE MONOHYDRATE 100 MG CAPS Take 1 capsule by mouth twice a day doxycycline monohydrate 55945667215 Lulu Gomez MD JOSÉ MIGUEL ALLERGY 180 MG TABS TAKE 1 TABLET BY MOUTH ONCE A DAY fexofenadine 88941356302 Sofiya Hanson MD LISINOPRIL-HYDR OCHLOROTHIAZIDE 10-12.5 MG TABS Take 1 tablet by mouth once a day lisinopril-hydr ochlorothiazide 22009723626 Sofiya Hanson MD DOXYCYCLINE MONOHYDRATE 100 MG CAPS Take 1 capsule by mouth twice a day doxycycline monohydrate 89000054617 Sofiya Hanson MD LISINOPRIL 5 MG TABS Take 1 tablet by mouth once a day lisinopril 45997244413 Tiffani Monique APRN LISINOPRIL-HYDR OCHLOROTHIAZIDE 10-12.5 MG TABS Take 1 tablet by mouth once a day lisinopril-hydr ochlorothiazide 99375809352 Tiffani Monique APRN CETIRIZINE HCL 10 MG TABS Take 1 tablet by mouth at bedtime cetirizine 53500375871 Tiffani Monique NEWSPAPER CORRESPONDENT FLUTICASONE PROPIONATE 50 MCG/ACT SUSP [place] 1 spray into both nostrils once a day USE FOR UP TO 2 WEEKS AT A TIME fluticasone propionate 87447307931 Tiffani Monique NEWSPAPER CORRESPONDENT LISINOPRIL 5 MG TABS Take 1 tablet by mouth once a day lisinopril 08228245450 Tiffani Monique NEWSPAPER CORRESPONDENT DOXYCYCLINE MONOHYDRATE 100 MG CAPS Take 1 capsule by mouth twice a day doxycycline monohydrate 97913837641 Cieol Echevarria NEWSPAPER CORRESPONDENT Medications Administered No information available. Allergies, Adverse Reactions, Alerts Allergy Name Reaction Description Start Date Severity Statu s Provider CRAB hives all over body Critical Active Lulu Gomez MD Results Date Name Value Unit Range Flag Description Lab Report: HEMOGLOBIN A1c, TSH W/REFLEX TO FT4, CBC (INCLUDES DIFF/PLT) ... RPR NON-REACTIVE NON-REACTIVE N Rosanna gin Ab [Units/volume] in Serum by VDRL LH 1.7 m[iU]/mL N Lutropin [Units/volume] in Serum or Plasma FSH 5.2 m[iU]/mL N Follitropin [Moles/volume] in Serum or Plasma HIV AB NON-REACTIVE NON-REACTIVE N HIV 2 gp125 Ab [Presence] in Serum by Immunoblot HEP C AB NON-REACTIVE NON-REACTIVE N He patitis C virus Ab [Presence] in Serum BASO % MANU 1.0 % N basophils as percent of blood leukocytes, manual count EOS % MANU 0.5 % N eosinophil s as percent of blood leukocytes, manual count MONOCYTE % 7.1 % N Monocytes/ 100 leukocytes in Blood by Automated count LYMPH% P BLD 30.1 % N lymphocy garret as percent of blood leukocytes PMN % 61.3 % N Neutrophils/1 00 leukocytes in Blood by Automated count ABS BASOS 62 {Cells}/ uL 0-200 N Basophils [#/volume] in Blood ABS EOS 31 {Cells}/ uL 15-500 N Eosinophils [#/volume] in Blood ABS MONOS 440 {Cells}/ uL 200-950 N Monocytes [#/volume] in Blood ABSLYMPHCT 1866 {Cells}/ uL 850-3900 N Lymphocytes [#/volume] in Blood ABS NEUTROPH 3801 CELLS/UL 10*3/uL 4466-9647 N Neutrophils [#/volume] in Blood TSH 1.55 u[iU]/mL N Thyrotropin [Units/volume] in Serum or Plasma HGBA1C 5.4 % OF TOTAL HGB % <5.7 N Hemoglobin A1c/Hemoglobin, total in Blood - % Lab Report: CULTURE, URINE, ROUTINE URINE CULT * Bacteria i dentified in Urine by Culture Lab Report: THINPREP TIS PAP AND HPV mRNA E6/E7, CHLAMYDIA/N.GONORRHOEAE ... HPV RESULT Not Detected Not Detected N Human papilloma virus identified in Specimen Office Visit: #6 PREG TST URN negative beta HC G, urine, semiquantitative Office Visit: F/U BP, FLANK PAIN SPEC GR URIN 1.025 Specific gravity of Urine by Test strip PH URINE 6.0 pH of Urine by Test strip APPEARANCE U clear Appearan ce of Urine UA COLOR yellow Color of Uri ne GLUCOSE, URN negative Glucose [Mass/volume] in Urine by Test strip BILIRUBIN UR negative Bilirub in.total [Presence] in Urine by Test strip KETONES URN negative Ketones [Mass/volume] in Urine by Test strip BLOOD UR DIP 2+ blood in urine (hemoglobin) by dipstick PROTEIN, URN negative protein , urine, semiquantitative (dipstick) UROBILINOGEN 0.2 Urobilin ogen [Presence] in Urine by Test strip NITRITE URN negative Nitrite [Presence] in Urine by Test strip WBC DIPSTK U negative Leukocy te esterase [Presence] in Urine by Test strip LABS ORDERED Urine Dip Auto 78086 Laboratory tests ordered Lab Report: LIPID PANEL WITH REFLEX TO DIRECT LDL, HDL CHOLESTEROL, TRIG ... MPV 10.8 fL 7.5-12.5 N Platelet abhijit n volume [Entitic volume] in Blood by Yana PLATELETK/UL 274 THOUSAND/UL 10*3/uL 140-400 N platelet count RDW 11.8 % 11.0-15.0 N Erythrocyte distribution width [Ratio] by Automated count OL-MCHC 32.6 g/dL 32.0-36.0 N mean corpus cular hemoglobin concentration, rbc MCH 30.4 pg 27.0-33.0 N MCH [Entiti c mass] by Automated count MCV 93.3 fL 80.0-100.0 N MCV [Entit ic volume] by Automated count HCT 40.2 % 35.0-45.0 N Hematocrit [Volume Fraction] of Blood by Automated count HGB 13.1 g/dL 11.7-15.5 N Hemoglobin [Mass/volume] in Blood RBC M/UL 4.31 MILLION/UL 10*6/uL 3.80-5.10 N red blood count WBC CT BLOOD 6.7 10*3/uL 3.8-10.8 N leukocy te count, blood SGPT (ALT) 26 U/L 6-29 N Alanine aminotransferase [Enzymatic activity/volume] in Serum or Plasma SGOT (AST) 16 U/L 10-35 N Aspartate aminotransferase [Enzymatic activity/volume] in Serum or Plasma ALK PHOS 100 U/L 37-153 N Alkaline lilian sphatase [Enzymatic activity/volume] in Blood BILI TOTAL 0.2 mg/dL 0.2-1.2 N Bilirubin. total [Mass/volume] in Serum or Plasma A/G RATIO 1.8 (calc) 1.0-2.5 N Albumin/ Globulin [Mass Ratio] in Serum or Plasma GLOBULIN TOT 2.2 G/DL (CALC) g/dL 1.9-3.7 N Globulin [Mass/volume] in Serum ALBUMIN EOP 4.0 g/dL 3.6-5.1 N Albumin [Mass/volume] in Serum or Plasma by Electrophoresis PROTEIN, TOT 6.2 g/dL 6.1-8.1 N Protein [Mass/volume] in Serum or Plasma NON-HDL CHOL 183 MG/DL (CALC) mg/dL <130 H cholesterol, non-HDL, total CHOL/HDL % 4.5 (calc) <5.0 N cholest diego/HDL ratio, serum, percent LDL 147 MG/DL (CALC) mg/dL H Cholesterol in L DL [Mass/volume] in Serum or Plasma - mg/dL TRIGLYC TOT 225 mg/dL <150 H Triglycer monty [Mass/volume] in Serum or Plasma - mg/dL HDL 52 mg/dL >OR = 50 N Cholesterol in HDL [Mass/volume] in Serum or Plasma - mg/dL CHOLESTEROL 235 mg/dL <200 H Cholester ol [Mass/volume] in Serum or Plasma - mg/dL Lab Report: BASIC METABOLIC PANEL CALCIUM 9.5 mg/dL 8.6-10.4 N Calcium [Moles/volume] in Serum or Plasma CO2 27 mmol/L 20-32 N Carbon dioxid e, total [Moles/volume] in Venous blood CHLORIDE BLD 103 mmol/L 98-110 N chloride , blood POTASSIUM 4.3 mmol/L 3.5-5.3 N Potassium [Moles/volume] in Serum or Plasma SODIUM 137 mmol/L 135-146 N Sodium [Moles/volume] in Serum or Plasma BUN/CREAT SEE NOTE: (calc) 6-22 Urea nitrogen/Creatinine [Mass Ratio] in Serum or Plasma CREATININE 0.79 mg/dL 0.50-1.03 N Creatini ne [Mass/volume] in Serum or Plasma BUN 15 mg/dL 7-25 N Urea nitrogen [Mass/volume] in Serum or Plasma GLUCOSE SER 98 mg/dL 65-99 N Glucose [Mass/volume] in Serum or Plasma Plan of Care Type Date Detail Appointment 01:30 PM Gretta woodson, [address], [address], Referral Dermatology Refe rral General Referral [facility], [address] [facility], [place], [address] [facility] G[facility]ology [facility], [address] [address], [place], [address] [facility] [employer] [facility] [employer] [facility], [address] [place] [address] [address], [place], [address] [facility] [employer] [facility] [employer] [facility], [address] [facility] [address], [place], [address] [facility] [employer] [facility] [employer] [facility], [address] [place] [address] [address], [place], [address] Referral excluded fr om report: Referral [facility], [address] [facility] [address], [place], [address] [facility] *NONE - RECEIVING ASSOCIATE STORE List [facility]erral [facility], [address] [facility] [address], [place], [address] Referral excluded fr om report: Referral [facility] *NONE - RECEIVING ASSOCIATE STORE List Referral excluded fr om report: Pending order Mammogram Pending order T1 BMP Pending order T1 CMP Pending order T1 CBC no diff Pending order T1 Lipid Panel Pending order Urine Dip Auto 8 1003 Pending order T1 Urine Culture Pending Order exclud ed from report: Pending order Urine Dip Auto 8 1003 Pending order Test 8 1025 Pending order Urine Dip Auto 8 1003 Pending order T1 Hep C Ab Pending order T1 HIV 1/2 Ag & Ab 4th gen -consent required Pending order T1 RPR w/ reflex to titer & confirmation Pending order T1 FSH Pending order T1 Estradiol Pending order T1 LH Pending order T1 CBC with diff Pending order T1 HGBA1c Pending order T1 TSH reflex to free T4 Pending order T1 ThinPrep w HR HPV/GC/Chlamydia mRNA E6/E7 Pending order T1 Urine Culture Pending order Mammogram Pending Order exclud ed from report: Procedures Code Procedure Name Date Entry Date CPT-3074F Most recent systolic blood pressure <130 mm Hg CPT-3078F Most recent diastoli c blood pressure <80 mm Hg CPT-1159F Medication list docu mented in medical record [id number] Medication Reconciliation CPT-3075F Most recent systolic blood pressure 130-139 mm Hg CPT-3079F Most recent diastoli c blood pressure 80-89 mm Hg CPT-1159F Medication list docu mented in medical record SCT-[id number] Medication Reconciliation SCT-[id number] Medication Reconciliation CPT-3074F Most recent systolic blood pressure <130 mm Hg CPT-3079F Most recent diastoli c blood pressure 80-89 mm Hg CPT-1159F Medication list docu mented in medical record CPT-1160F Review of all medica tions by a prescribing practitioner [id number] Never smoker CPT-3074F Most recent systolic blood pressure <130 mm Hg CPT-3079F Most recent diastoli c blood pressure 80-89 mm Hg CPT-3074F Most recent systolic blood pressure <130 mm Hg CPT-3079F Most recent diastoli c blood pressure 80-89 mm Hg [id number] Medication Reconciliation [id number] Never smoker [facility] 79608 T1 BMP CPT-1159F Medication list docu mented in medical record [facility] 395 T1 Urine Culture CPT-16655 Urine Dip Auto 34140 SCT-[id number] Medication Reconciliation [id number] Never smoker [facility] 89382 T1 CMP [facility] 1759 T1 CBC no diff [facility] 71397 T1 Lipid Panel [id number] Medication Reconciliation DOCTOR NATUROPATHIC [facility] [employer] [facility] SCT-[id number] Medication Reconciliation [id number] Never smoker CPT-3077F Most recent systolic blood pressure >=140 mm Hg CPT-3079F Most recent diastoli c blood pressure 80-89 mm Hg CPT-1159F Medication list docu mented in medical record CPT-1160F Review of all medica tions by a prescribing practitioner CPT-67063 Urine Dip Auto 39405 CPT-75817 Test 54171 4004F Patient screened for tobacco use and received tobacco cessation intervention [id number] Medication Reconciliation [id number] Giving encouragement to exercise [id number] Never smoker CPT-3074F Most recent systolic blood pressure <130 mm Hg CPT-3079F Most recent diastoli c blood pressure 80-89 mm Hg CPT-1159F Medication list docu mented in medical record CPT-1160F Review of all medica tions by a prescribing practitioner Mammo Mammogram CPT-05607 Urine Dip Auto 37686 [facility] 8472 T1 Hep C Ab [facility] 41781 T1 HIV 1/2 Ag & Ab 4 th gen -consent required [facility] 46670 T1 RPR w/ reflex to titer & confirmation [facility] 470 T1 FSH [facility] 4021 T1 Estradiol [facility] 615 T1 LH [facility] 6399 T1 CBC with diff [facility] 496 T1 HGBA1c [facility] 25933 T1 TSH reflex to free T4 06/18/14 [facility] 395 T1 Urine Culture [facility] 73131 T1 ThinPrep w HR HPV /GC/Chlamydia mRNA E6/E7 [facility]STR[address] [facility]ro[facility]yn [facility] 5 Vital Signs Date Name Value Unit Description BMI (Body Mass Index) 29.48 kg/m2 Bod y Mass Index (Ratio) Body Temperature 98.1 [degF] temperat ure E&M Body Temperature 36.72 Nori temperat ure in centigrade E&M BP Diastolic 74 mm[Hg] blood pressu re, diastolic BP Systolic 116 mm[Hg] blood pressur e, systolic BSA (Body Surface Area) 1.96 b emilio surface area Heart Rate 78 /min pulse rate Height 66 [in_us] height E&M Height 167.64 cm height in cent imeters E&M Respiratory Rate 18 /min respirat ory rate E&M Weight Measured 82.73 kg weight in kilograms E&M Weight Measured 182 [lb_av] weight E& M Weight Measured 182 [lb_av] weight E& M Immunizations No information available. Advance Directives No information available.
[2024-08-31 12:28] LABS: Basophils # 0.1 K/mm3 (0-0.2); Basophils % 0.7 % (0.1-2.0); Eosinophils # 0.1 Kmm3 (0.0-0.4); Hematocrit 38.1 % (37.0-47.0); Hemoglobin 12.7 g/dL (12.2-16.2); Immature Granulocytes # 0.05 10^3uL; Immature Granulocytes % 0.6 %; Lymphocytes # 2.9 K/mm3 (0.7-4.5); Mean Corpuscular HGB Conc 33.3 g/dL (31.8-35.4); Mean Corpuscular Hemoglobin 30.5 pg (27.0-31.2); Mean Corpuscular Volume 91.4 fl (81-99); Mean Platelet Volume 10.3 fl (7.4-10.4); Monocytes # 0.8 K/mm3 (0.1-1.0); Monocytes % 8.6 % (1.7-9.3); Neutrophils # 5.2 K/mm3 (1.8-7.8); Neutrophils % 57.1 % (37.0-80.0); Nucleated Red Blood Cells # 0 10^3/uL; Nucleated Red Blood Cells % 0 %; Platelet Count 204 K/mm3 (142-424); Red Blood Count 4.17 M/mm3 (4.20-5.40); Red Cell Distribution Width 12.8 % (11.5-17.5); Red Cell Distribution Width-SD 42.1 fL; White Blood Count 9.1 K/mm3 (4.8-10.8)
[2024-08-31 12:55] LABS: Chloride 105 mmol/L (98-107); Potassium 4.3 mmoL/L (3.5-5.1); Sodium 137 mmol/L (136-145)
[2024-08-31 12:58] LABS: Alanine Aminotransferase 20 U/L (12-78); Albumin/Globulin Ratio 1.6 (1.1-1.8); Alkaline Phosphatase 73 U/L (38-126); Amylase 56 U/L (30-110); Anion Gap 8.3 mEq/L (5-15); Aspartate Amino Transferase 26 U/L (14-36); Bilirubin,Total 0.2 mg/dl (0.2-1.3); Blood Urea Nitrogen 18 mg/dl (7-17); Calcium 9.2 mg/dl (8.4-10.2); Carbon Dioxide 28 mmol/L (22.0-30.0); Estimated Glomerular Filt Rate 75 ml/min (>60); GFR (African American) 91 ML/MIN (>60); Globulin 2.5 g/dL (1.3-3.2); Glucose 81 mg/dl (74-100); Total Protein,Serum 6.5 g/dl (6.3-8.2)
[2024-09-01 13:11] LABS: Immunoglobulin A, Qn 143 mg/dL (87-352); Immunoglobulin G, Qn 846 mg/dL (586-1602); Immunoglobulin M, Qn 154 mg/dL (26-217)
[2024-09-01 14:28] LABS: Actin (Smooth Muscle) Antibody 5 Units (0-19); Anti-Centromere B Antibodies <0.2 AI (0.0-0.9); Anti-DNA (DS) Ab Qn 2 IU/mL (0-9); Anti-Jo-1 <0.2 AI (0.0-0.9); Anti-Smith Antibody <0.2 AI (0.0-0.9); Antichromatin Antibodies <0.2 AI (0.0-0.9); Antiscleroderma-70 Antibodies <0.2 AI (0.0-0.9); Mitochondrial (M2) Antibody <20.0 Units (0.0-20.0); RNP Antibodies <0.2 AI (0.0-0.9); Sjogren's Anti-SS-A <0.2 AI (0.0-0.9); Sjogren's Anti-SS-B <0.2 AI (0.0-0.9)
[2024-09-01 15:10] LABS: Angiotensin Converting Enzyme <15 U/L (14-82); Deamidated Gliadin Abs, IgA 4 units (0-19); Deamidated Gliadin Abs, IgG 1 units (0-19); Endomysial IgA Antibody Negative (Negative); Tissue Transglutaminase IgA Ab <2 U/mL (0-3); Tissue Transglutaminase IgG Ab 4 U/mL (0-5)
[2024-09-01 16:13] LABS: Liver-Kidney Microsomal Ab 1.6 Units (0.0-20.0)
== END 2024-08-31 23:59 | disposition home or self-care (01) ==
LOC: LAB 11:54
PROVIDERS: Visit Provider Internal Medicine Gastroenterology
DX: L50.9 Urticaria, unspecified (principal); K74.69 Other cirrhosis of liver; B19.20 Unspecified viral hepatitis C without hepatic coma; E80.6 Other disorders of bilirubin metabolism; R74.8 Abnormal levels of other serum enzymes; R74.01 Elevation of levels of liver transaminase levels; W57.XXXA Bitten or stung by nonvenomous insect and other nonvenomous arthropods, initial encounter
CPT/HCPCS: 36415; 80053; 82150; 82164; 82784; 82785; 83516; 85025; 86225; 86235; 86255; 86256; 86376; 86753

== ENCOUNTER 2024-09-06 10:52 | Outpatient (CLI) | payer MEDICAID, SELFPAY ==
--- OUTSIDE RECORDS SUMMARY | 2024-09-08 11:09 | XMS_ITS | Clinical Summary ---
Author Organization [facility] [facility] Address [address] [place] [address] Phone Care Team Providers Care Tourism Radio Presenter Name Role Phone Erika Patricio APRN Primary Care Physician [phone] Conditions or Problems Problem Name Problem Code Onset Date Status Entry Date Provider Comment Standard Description Annotate Body mass index (BMI) 29.0-29.9; adult Z68.29 (ICD-10-CM) 05/09 Active 05/09 Edith Anderson APRN Body mass index [BMI] 29.0-29.9, adult Body mass index (BMI) 31.0-31.9; adult Z68.31 (ICD-10-CM) 03/23 Correction 03/23 Edith Anderson APRN Body mass index [BMI] 31.0-31.9, adult Mole 487429694 (SNOMED CT) 05/09 Active 05/09 Edith Anderson [...] adult Presence of Essure implant contracepti ve 07151304787 9107 (SNOMED CT) Active Sofiya Hanson MD [...] nonvenomous insect and other nonvenomous arthropods, sequela 41492251 (SNOMED CT) 09/22 Active 09/23 Sofiya Hanson MD Tick bite Elevated blood pressure reading without diagnosis of hypertensio n 985009679 (SNOMED CT) 09/02 Resolved 09/02 Tiffani Monique CHIROPRACTIC PRACTICE MANAGER Elevated blood-pressure reading without diagnosis of hypertension Seasonal allergies 284964552 (SNOMED CT) 09/16 Active 09/16 Tiffani Monique CHIROPRACTIC PRACTICE MANAGER Seasonal allergy Body mass index (BMI) 30.0-30.9; adult Z68.30 (ICD-10-CM) 09/16 Removed 09/16 Tiffani Monique CHIROPRACTIC PRACTICE MANAGER Body mass index [BMI] 30.0-30.9, adult Body mass index (BMI) 30.0-30.9; adult Z68.30 (ICD-10-CM) 08/12 Correction 08/12 Tiffani Monique CHIROPRACTIC PRACTICE MANAGER Body mass index [BMI] 30.0-30.9, adult Hypertensio n 60369471 (SNOMED CT) 09/16 Active 09/16 Tiffani Monique CHIROPRACTIC PRACTICE MANAGER Hypertensive disorder Screening for lipid disorder 247228234 (SNOMED CT) 09/02 Inactive 09/02 Tiffani Monique CHIROPRACTIC PRACTICE MANAGER Procedure carried out on subject Flank pain, left 962256293 (SNOMED CT) 09/02 Inactive 09/02 Tiffani Monique CHIROPRACTIC PRACTICE MANAGER Left flank pain Elevated blood pressure reading without diagnosis of hypertensio n 407788072 (SNOMED CT) 09/02 Removed 09/02 Tiffani Monique CHIROPRACTIC PRACTICE MANAGER Elevated blood-pressure reading without diagnosis of hypertension [...] mass index [BMI] 29.0-29.9, adult Insect bite 005906023 (SNOMED CT) 08/12 Active 08/12 Cielo Echevarria APRN Insect bite - wound TICK Body mass index (BMI) 29.0-29.9; adult Z68.29 (ICD-10-CM) 07/09 Removed 07/09 Erika Patricio APRN Body mass index [BMI] 29.0-29.9, adult Body mass index (BMI) 28.0-28.9; adult Z68.28 (ICD-10-CM) 06/29 Correction 06/29 Erika Patricio CHIROPRACTIC PRACTICE MANAGER Body mass index [BMI] 28.0-28.9, adult Stenosis of cervix 77945751 (SNOMED CT) 07/09 Active 07/09 Erika Patricio CHIROPRACTIC PRACTICE MANAGER Stenosis of cervix Body mass index (BMI) 28.0-28.9; adult Z68.28 (ICD-10-CM) 06/29 Removed 06/29 Erika Patricio CHIROPRACTIC PRACTICE MANAGER Body mass index [BMI] 28.0-28.9, adult Female stress incontinenc e 24162025 (SNOMED CT) 06/29 Active 06/29 Erika Patricio CHIROPRACTIC PRACTICE MANAGER Female stress incontinence Family history of malignant neoplasm of uterus 917789905 (SNOMED CT) 06/29 Active 06/29 Erika Kellye CHIROPRACTIC PRACTICE MANAGER Family history of malignant neoplasm of uterus Mammographi c screening for breast cancer 64532804 (SNOMED CT) 06/29 Active 06/29 Erika Kellye CHIROPRACTIC PRACTICE MANAGER Screening mammography Screening for colon cancer 001188747 (SNOMED CT) 06/29 Active 06/29 Erika Patricio CHIROPRACTIC PRACTICE MANAGER Screening for malignant neoplasm of colon Screening for std 390817896 (SNOMED CT) 06/29 Active 06/29 Erika Patricio CHIROPRACTIC PRACTICE MANAGER Venereal disease screening ROUTINE GYNECOLOGIC AL EXAMINATION 62413549 (SNOMED CT) 06/29 Active 06/29 Erika Patricio CHIROPRACTIC PRACTICE MANAGER Gynecologic examination Abnormal uterine bleeding 02232598183 100 (SNOMED CT) 06/29 Active 06/29 Erika Patricio CHIROPRACTIC PRACTICE MANAGER Abnormal uterine bleeding Tobacco User 137741862 (SNOMED CT) 06/29 Active 06/29 Meri Castillo MA Tobacco user Medications Medication Instructions Start Date Stop Date Generic Name NDC Provider DOXYCYCLINE MONOHYDRATE 100 MG CAPS Take 1 capsule by mouth twice a day doxycycline monohydrate 13920587102 Edith Monica CHIROPRACTIC PRACTICE MANAGER JOSÉ MIGUEL ALLERGY 180 MG TABS TAKE 1 TABLET BY MOUTH ONCE A DAY fexofenadine 67294731347 Edith Monica CHIROPRACTIC PRACTICE MANAGER ZYRTEC ALLERGY 10 MG CAPS Take 1 capsule by mouth once a day for 30 days cetirizine 72853323588 Edith Monica CHIROPRACTIC PRACTICE MANAGER DOXYCYCLINE MONOHYDRATE 100 MG CAPS Take 1 capsule by mouth twice a day doxycycline monohydrate 83999837619 Lulu Gomez MD JOSÉ MIGUEL ALLERGY 180 MG TABS TAKE 1 TABLET BY MOUTH ONCE A DAY fexofenadine 27420447590 Sofiya Hanson MD LISINOPRIL-HYDR OCHLOROTHIAZIDE 10-12.5 MG TABS Take 1 tablet by mouth once a day lisinopril-hydr ochlorothiazide 92926539129 Sofiya Hanson MD DOXYCYCLINE MONOHYDRATE 100 MG CAPS Take 1 capsule by mouth twice a day doxycycline monohydrate 97219077511 Sofiya Hanson MD LISINOPRIL 5 MG TABS Take 1 tablet by mouth once a day lisinopril 52811951682 Tiffani Monique APRN LISINOPRIL-HYDR OCHLOROTHIAZIDE 10-12.5 MG TABS Take 1 tablet by mouth once a day lisinopril-hydr ochlorothiazide 27227828452 Tiffani Monique APRN CETIRIZINE HCL 10 MG TABS Take 1 tablet by mouth at bedtime cetirizine 83266796866 Tiffani Monique CHIROPRACTIC PRACTICE MANAGER FLUTICASONE PROPIONATE 50 MCG/ACT SUSP [place] 1 spray into both nostrils once a day USE FOR UP TO 2 WEEKS AT A TIME fluticasone propionate 07180303374 Tiffani Monique CHIROPRACTIC PRACTICE MANAGER LISINOPRIL 5 MG TABS Take 1 tablet by mouth once a day lisinopril 46191363710 Tiffani Monique CHIROPRACTIC PRACTICE MANAGER DOXYCYCLINE MONOHYDRATE 100 MG CAPS Take 1 capsule by mouth twice a day doxycycline monohydrate 50608056529 Cielo Echevarria CHIROPRACTIC PRACTICE MANAGER Medications Administered No information available. Allergies, Adverse [...] Plasma HIV AB NON-REACTIVE NON-REACTIVE N HIV 1 p51 Ab [Presence] in Serum by Immunoblot HEP [...] in Blood ABS NEUTROPH 3801 CELLS/UL 10*3/uL 7743-6959 N Neutrophils [#/volume] in Blood TSH 1.55 [...] Test strip LABS ORDERED Urine Dip Auto 80334 Laboratory tests ordered Lab Report: LIPID PANEL [...] Detail Appointment 01:30 PM Gretta woodson, [address], [address], Referral Dermatology Refe rral General [facility]erral [facility], [address] [facility], [place], [address] [facility], [address] [facility] [address] [place], [address] [facility] Production Expediter [facility] Production [facility], [address] [place] [address] [address], [address] [facility] Production Expediter [facility] Production Expediter [facility], [address] [facility] [address], [place], [address] [facility] Production Expediter [facility] Production Expediter [facility], [address] [place] [address] [address], [place], [address] Referral excluded fr om report: Referral [facility], [address] [facility] [address], [place], [address] [facility] *NONE - COMMUNITY SERVICE OFFICER List Referral [facility], [address] [facility] [address], [place], [address] Referral excluded fr om report: Referral [facility] *NONE - COMMUNITY SERVICE OFFICER List Referral excluded fr om report: Pending [...] Medication list docu mented in medical record SCT-[id number] Medication Reconciliation CPT-3075F Most recent systolic blood pressure 130-139 mm Hg CPT-3079F Most recent diastoli c blood pressure 80-89 mm Hg CPT-1159F Medication list docu mented in medical record SCT-[id number] Medication Reconciliation SCT-[id number] Medication Reconciliation CPT-3074F Most recent systolic blood pressure <130 mm Hg CPT-3079F Most recent diastoli c blood pressure 80-89 mm Hg CPT-1159F Medication list docu mented in medical record CPT-1160F Review of all medica tions by a prescribing practitioner SCT-[id number] Never smoker CPT-3074F Most recent systolic blood pressure <130 mm Hg CPT-3079F Most recent diastoli c blood pressure 80-89 mm Hg CPT-3074F Most recent systolic blood pressure <130 mm Hg CPT-3079F Most recent diastoli c blood pressure 80-89 mm Hg SCT-[id number] Medication Reconciliation SCT-929177879 Never smoker [facility] 25498 T1 BMP CPT-1159F Medication list docu mented in medical record [facility] 395 T1 Urine Culture CPT-96008 Urine Dip Auto 93150 SCT-[id number] Medication Reconciliation SCT-734509115 Never smoker [facility] 82414 T1 CMP [facility] 1759 T1 CBC no diff [facility] 30696 T1 Lipid Panel SCT-[id number] Medication Reconciliation ICE CREAM DISPENSER [facility] Production Expediter [facility] SCT-[id number] Medication Reconciliation SCT-288114110 Never smoker CPT-3077F Most recent systolic blood pressure >=140 mm Hg CPT-3079F Most recent diastoli c blood pressure 80-89 mm Hg CPT-1159F Medication list docu mented in medical record CPT-1160F Review of all medica tions by a prescribing practitioner CPT-95787 Urine Dip Auto 17661 CPT-20162 Test 01279 4004F Patient screened for tobacco use and received tobacco cessation intervention SCT-[id number] Medication Reconciliation SCT-125196707 Giving encouragement to exercise SCT-098108259 Never smoker CPT-3074F Most recent systolic blood pressure <130 mm Hg CPT-3079F Most recent diastoli c blood pressure 80-89 mm Hg CPT-1159F Medication list docu mented in medical record CPT-1160F Review of all medica tions by a prescribing practitioner Mammo Mammogram CPT-59548 Urine Dip Auto 54452 [facility] 8472 T1 Hep C Ab [facility] 04039 T1 HIV 1/2 Ag & Ab 4 th gen -consent required [facility] 55080 T1 RPR w/ reflex to titer & confirmation [facility] 470 T1 FSH [facility] 4021 T1 Estradiol [facility] 615 T1 LH [facility] 6399 T1 CBC with diff [facility] 496 T1 HGBA1c [facility] 99602 T1 TSH reflex to free T4 06/18/14 [facility] 395 T1 Urine Culture [facility] 42798 T1 ThinPrep w HR HPV /GC/Chlamydia mRNA E6/E7 [facility]STR[address] [facility] PH[facility]roGyn [facility] 5 [...]
--- OUTSIDE RECORDS SUMMARY | 2024-09-08 11:12 | XMS_ITS | Clinical Summary ---
Author Organization [facility] Address [address] [place] [address] [address], [address] [place] [address] Phone Care Team Providers Care Category Development Manager Name Role Phone Unavailable Primary Care Provider [...] age to complete this topic Insurance #[address] [place] [address]
[2024-09-09 20:10] LABS: F026-IgE Pork < 0.10 kU/L (Class 0); F027-IgE Beef < 0.10 kU/L (Class 0); F088-IgE Lamb < 0.10 kU/L (Class 0); Immunoglobulin E, Total 77 IU/mL (6-495); O215-IgE Alpha-Gal 1.64 kU/L (Class III)
== END 2024-09-06 23:59 | disposition home or self-care (01) ==
LOC: LAB.DROPOF 09-08 10:52
PROVIDERS: PCP Nurse Practitioner Family; Visit Provider Nurse Practitioner Family
DX: L50.9 Urticaria, unspecified (principal); T14.8XXA Other injury of unspecified body region, initial encounter; R19.7 Diarrhea, unspecified; W57.XXXA Bitten or stung by nonvenomous insect and other nonvenomous arthropods, initial encounter
CPT/HCPCS: 82785; 86003; 86008

== ENCOUNTER 2024-12-29 15:38 | Outpatient (CLI) | payer MEDICAID, SELFPAY ==
--- OUTSIDE RECORDS SUMMARY | 2006-06-23 11:30 | XMS_ITS | Continuity of Care Document ---
Author Organization [facility] Address [address] [place] [address] Phone Care Team Providers Care Private Chef Name Role Phone Anita Hernadez DO Unavailable Unavailable Procedures Procedure Date Office/outpatient visit,[facility] 2006 Advance Directives Directive Yes / No Effective Date File Name No Information Encounters Encounter Description Practice Location Reason(s) For Visit Diagnoses Date Provider Providers Copied on Encounter Office/[facility] visit[facility], [facility], [address], [place], [place], [id number], [place] tel:[phone] 4247 [facility] No Information Satya Howard. [address] [place], [address], [place]. tel:[phone] Family History Family Member Type Diagnosis Age At Onset No Information Payers Payer name Insurance type Covered libertarian ID Authorjeremy carney(s) Nikole CASTRO [facility] [id number] Social History Type Description Quantity Date Captured [...]
--- OUTSIDE RECORDS SUMMARY | 2022-12-24 11:45 | XMS_ITS | Continuity of Care Document ---
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 [address] [place], [place], [address], [place]. tel:[phone] Referring Provider: Etta Hernandez, [address] [place], [address] . tel:[phone] OFFICE/OUTPA TIENT VISIT EST [facility], [address], [place], [place], [address], [place] tel:[phone] [facility] telehealth visit (chief complaint) Left lateral ankle pain 1 Arabella Christiansen. [address] [place], [address], [place]. tel:[phone] [facility], [address], [address], [place] tel:[phone] [employer] No Information 1 Estuardo Matta. [address] [place], [address], [place]. tel:[phone] OFFICE/OUTPA TIENT VISIT, [facility], [address], [address], [place] tel:[phone] [employer] [facility] CHEST PAIN BP CHECK (chief complaint) Essential hypertensionP recordial chest painContact with and (suspected) exposure to other viral communicable diseases 1 Camille Buck. [address] [place], [address], [place]. tel:[phone] OFFICE/OUTPA TIENT VISIT [facility], [address], [address], [place] tel:[phone] [employer] tele health (chief complaint)ast hma (chief complaint)wili nt pain (chief complaint) Polyarthralgi aCough variant asthmaOther skilled nursing (current) drug therapyInflam matory arthritisChro sally cough 0 Estuardo Calderon [address] [place], [address], [place]. tel:[phone] OFFICE/OUTPA TIENT VISIT, [facility], [address], [address], [place] tel:[phone] [employer] [facility] POSS YEAST INFECTION (chief complaint) Vaginal candidaSeason al allergic reactionHypot ension due to drugs 0 No Information OFFICE/OUTPA TIENT VISIT, [facility], [address], [address], [place] tel:[phone] [employer] [facility] poss. uti (chief complaint) Bacterial vaginosisOthe r specified bacterial agents as the cause of diseases classified elsewhereWeig ht gainHair lossOther adjunct faculty for medical terminology (current) drug therapy 9 Estuardo Chackon. [address] [place], [address], [place]. tel:[phone] OFFICE/OUTPA TIENT VISIT, [facility], [address], [address], [place] tel:[phone] [facility] POSSIBLE YEAST INFECTION. (chief complaint) Unprotected sexual intercourseVa ginal discharge 9 Behzad Workman. [address] [place], [address], [place]. tel:[phone] OFFICE/OUTPA TIENT VISIT, [facility], [address], [address], [place] tel:[phone] [facility] COLD SYMPTOMS (chief complaint) URI with cough and congestionCou gh variant asthmaAcute bacterial sinusitisOthe r specified bacterial agents as the cause of diseases classified elsewhere 9 Estuardo Matta. [address] [place], [address], [place]. [phone] OFFICE/OUTPA TIENT VISIT, [facility], [address], [address], [place] tel:[phone] [facility] cough (chief complaint) URI with cough and congestionChr onic allergic rhinitis 9 Estuardo Matta. [address] [place], [address], [place]. tel:[phone] OFFICE/OUTPA TIENT VISIT, [facility], [address], [address], [place] tel:[phone] [facility] Musculoskelet al pain (chief complaint)Sin us symptoms (acute) (chief complaint) Acute upper respiratory infection, unspecifiedAc ajay non-recurrent frontal sinusitis 9 Camille Buck. [address] [place], [address], [place]. tel:[phone] [facility], [address], [address], [place] tel:[phone] [facility] Spinal Care (chief complaint) Segmental and somatic dysfunction of cervical regionSegment al and somatic dysfunction of lumbar region 8 Sesar Bella. [address] [place], [address], [place]. tel:[phone] [facility], [address], [address], [place] tel:[phone] [facility] LABS ONLY (chief complaint) Family history of diseases of the ms sys and connective tiss 0 8 Camille Buck. [address] [place], [address], [place]. tel:[phone] OFFICE/OUTPA TIENT VISIT, EST [facility], [address], [address], [place] tel:[phone] [facility] RIGHT HEEL PAIN (chief complaint)Anx iety (chief complaint) Chronic fatiguePanic attacksPain of right heelHair lossPolyarthr algiaFamily history of rheumatic joint diseaseLeft foot pain 0 8 Camille Buck. [address] [place], [address], [place]. [phone] OFFICE/OUTPA TIENT VISIT, EST [facility], [address], [address], [place] tel:[phone] [facility] UTI (chief complaint) DysuriaDysuri a 0 8 Estuardo Matta. [address] [place], [address], [place]. tel:[phone] OFFICE/OUTPA TIENT VISIT, EST [facility], [address], [address], [place] tel:[phone] [facility] STD check (chief complaint)Fol low up on lab test(s) (chief complaint) Vaginal dischargeChla mydia contactElevat ed BP without diagnosis of hypertension 8 Estuardo Sigrid. [address] [place], [address], [place]. tel:[phone] OFFICE/OUTPA TIENT VISIT, [facility], [address], [address], [place] tel:[phone] [facility] UTI symptoms not getting better (chief complaint) Acute cystitis with hematuria 8 Estuardo Sigrid. [address] [place], [address], [place]. tel:[phone] OFFICE/OUTPA TIENT VISIT, [facility], [address], [address], [place] tel:[phone] [facility] UTI (chief complaint) DysuriaDysuri aVaginal dischargePelv ic pain in female 8 Estuardo Sigrid. [address] [place], [address], [place]. tel:[phone] OFFICE/OUTPA TIENT VISIT, [facility], [address], [address], [place] tel:[phone] [facility] sore throat (chief complaint) Tender lymph nodeRight ear painSore throatProduct radha cough 7 Camille Buck. [address] [place], [address], [place]. tel:[phone] OFFICE/OUTPA TIENT VISIT, [facility], [address], [address], [place] tel:[phone] [facility] results (chief complaint) BV (bacterial vaginosis)Jesusita vated BP without diagnosis of hypertensionA trophy of right kidneyRenal cyst 7 Estuardo Sigrid. [address] [place], [address], [place]. [phone] OFFICE/OUTPA TIENT VISIT, [facility], [address], [address], [place] tel:[phone] [facility] UTI (chief complaint)ref erral (chief complaint) DysuriaPelvic pain in femaleRenal cyst, rightHx gestational diabetes 7 Estuardo Sigrid. [address] [place], [address], [place]. tel:[phone] OFFICE/OUTPA TIENT VISIT, [facility], [address], [place], [place], [address], [place] tel:[phone] [facility] Burning on urination (chief complaint)Uri nary frequency (chief complaint)URI NE ODOR (chief complaint) DysuriaAcute cystitis with hematuria 7 No Information OFFICE/OUTPA TIENT VISIT, [facility], [address], [place], [place], [address], [place] tel:[phone] [facility] cough (chief complaint) CoughFever, unspecified fever cause 7 Camille Buck. [address] [place], [address], [place]. tel:[phone] OFFICE/OUTPA TIENT VISIT, [facility], [address], [place], [place], [address], [place] tel:[phone] [facility] UTI (chief complaint)pre diabetes (chief complaint)vis ion change (chief complaint) DysuriaAcute pyelonephriti sAcute cystitis with hematuriaPred iabetesDysuri aEncounter for test, result unknown 6 Camille Buck. [address] [place], [address], [place]. tel:[phone] OFFICE/OUTPA TIENT VISIT, [facility], [address], [address], [place] tel:[phone] [facility] possible uti (chief complaint) DysuriaCystit is 6 Estuardo Matta. [address] [place], [address], [place]. tel:[phone] OFFICE/OUTPA TIENT VISIT, [facility] [employer] [facility] [facility], [address], [address], [place] tel:[phone] [facility] *Rash (chief complaint) Food allergic dermatitisOth bacterial agents as the cause of diseases classd elswhr 6 Estuardo Matta. [address] [place], [address], [place]. tel:[phone] OFFICE/OUTPA TIENT VISIT, [facility], [address], [place], [address], [place] tel:[phone] [facility] annual exam (chief complaint) Encntr screen for infections w sexl mode of transmissEnco unter for screening for oth infec/parastc diseasesEncou nter for screening for human papillomaviru s (HPV)Encounte r for gynecological examination (general) (routine) with abnormal findingsEncnt r for customer management specialist exam (general) (routine) w/o abn findingsBV (bacterial vaginosis)Oth er specified bacterial agents as the cause of diseases classified elsewhereEnco unter for screening breast examinationHx of breast implants, bilateralHist ory of abdominoplast y 6 Buffy Burns. [address], [place], [address], [place]. tel:[phone] OFFICE/OUTPA TIENT VISIT, [facility], [address], [place], [place], [address], [place] tel:[phone] [facility] PAP test (chief complaint) PrediabetesHy perlipidemiaV isit for routine customer management specialist examScreening breast examinationBa cterial vaginosisBact erial infectionScre ening examination for venereal diseaseOther specified chlamydial diseasesSPECI AL SCREEN EXAM HPV 5 Buffy Burns. [address], [place], [address], [place]. tel:[phone] [facility], [address], [place], [place], [address], [place] tel:[phone] [facility] LABS ONLY (chief complaint) Dental caries, unspecified 3- 4 Buffy Burns. [address], [place], [address], [place]. tel:[phone] OFFICE/OUTPA TIENT VISIT, NEW [facility], [address], [place], [place], [address], [place] tel:[phone] [facility] physical (chief complaint)est ablish (chief complaint) Routine medical examScreening for diabetes mellitusScree wagner for thyroid disorderScree wagner, anemia, deficiency, iron 0 4 Ross Boone. [address] [place], [address], [place]. tel:[phone] [facility], [address], [place], [place], [address], [place] tel:[phone] [facility] Dental caries, unspecified 3 Mousa Nasr. [address], [place], [address]. tel:[phone] [facility], [address], [place], [place], [address], [place] tel:[phone] [facility] Dental caries, unspecified 6 3 Mousa Nasr. [address], [place], [address]. tel:[phone] Family History Family Member Type Diagnosis Age At Onset Father Problem (finding) Payers Payer name Insurance type Covered libertarian ID Juan Jose carney(s) [employer] [id number] Social History Type Description Quantity Date Captured [...] verbally consented to have their visit with [facility] via Telehealth for their concern.Reason for [...] Of Treatment Date Type Action Status Goal Pap/HPV testing. Due on due Goal Urinalysis due Goal Alcohol/chemical dependency screeing. Due on due Goal Dental exam. Due on 023 due Goal Depression scree wagner. Due on due Goal Mammogram. Due on due Goal Colonoscopy. Due on 023 due Goal Lipid Panel due Goal FIT/FOBT/Occult Blood, Stool. Due on due Goal SHA Adult 18-64 years. Due on due Goal Pap/HPV testing. Due on due Goal Lipid Panel. Due on 025 due Goal Urinalysis due Goal Alcohol/chemical dependency screeing. Due on due Goal Dental exam. Due on 021 due Goal HIV screen due Goal Hep C Ab due Goal [facility] Adult 18-64 years. Due on due Goal eGFR. Due on due Goal Depression scree wagner. Due on due Goal Gonorrhea Screening due Goal Urinalysis due Goal Diabetes screeni ng. Due on due Goal eGFR. Due on due Goal Lipid Panel. Due on 025 due Goal Hep C Ab due Goal Gonorrhea Screening due Goal HIV screen due Goal Pap/HPV testing. Due on due Goal Dental exam. Due on 021 due Goal [facility] Adult 18-64 years. Due on due Goal Depression scree wagner. Due on due Goal Alcohol/chemical dependency screeing. Due on due Goal Pap/HPV testing. Due on due Goal HIV screen due Goal Lipid Panel due Goal Hep C Ab due Goal Gonorrhea Screening due Goal Dental exam. Due on 020 due Goal Alcohol/chemical dependency screeing. Due on due Goal Depression scree wagner. Due on due Goal SHA Adult 18-64 years. Due on due Goal Lipid Panel due Goal SHA Adult 18-64 years. Due on due Goal Dental exam. Due on 020 due Goal Alcohol/chemical dependency screeing. Due on due Goal Lipid panel due Goal Depression scree wagner. Due on due Goal Hep C Ab due Goal HIV screen due Goal Pap/HPV testing. Due on due Goal Diabetes screeni ng. Due on due Goal Gonorrhea Screening due Goal [facility] Adult 18-64 years. Due on due Goal Mammogram Referr al. Due on due Goal Influenza vaccin e. Due on due Goal Depression scree wagner. Due on due Goal Td vaccine. Due on 19 due Goal Pap/HPV testing. Due on due Goal PAP. Due on due Goal Tdap. Due on due Goal SHA Adult 18-64 yrs. Due on due Goal Influenza vaccin e. Due on due Goal Tdap. Due on due Goal SHA Adult 18-64 yrs. Due on due Goal Pap/HPV testing. Due on due Goal Td vaccine. Due on 19 due Goal Mammogram Referr al. Due on due Goal Depression scree wagner. Due on due Goal SHA Adult 18-64 years. Due on due Goal Td vaccine. Due on 19 due Goal Tdap. Due on due Goal [facility] Adult 18-64 years. Due on due Goal Mammogram Referr al. Due on due Goal [facility] Adult 18-64 yrs. Due on due Goal Depression scree wagner. Due on due Goal Pap/HPV testing. Due on due Goal Influenza vaccin e. Due on due Goal Td vaccine. Due on 19 due Goal Depression scree wagner. Due on due Goal Influenza vaccin e. Due on due Goal Pap/HPV testing. Due on due Goal Tdap. Due on due Goal SHA Adult 18-64 years. Due on due Goal Mammogram Referr al. Due on due Goal [facility] Adult 18-64 yrs. Due on due Goal Pap/HPV testing. Due on due Goal Td vaccine. Due on 19 due Goal Tdap. Due on due Goal Mammogram Referr al. Due on due Goal SHA Adult 18-64 yrs. Due on due Goal [facility] Adult 18-64 years. Due on due Goal Depression scree wagner. Due on due Goal Influenza vaccin e. Due on due Goal [facility] Adult 18-64 yrs. Due on due Goal [facility] Adult 18-64 years. Due on due Goal Tdap. Due on due Goal Influenza vaccin e. Due on due Goal Td vaccine. Due on 18 due Goal Pap/HPV testing. Due on due Goal Depression scree wagner. Due on due Goal Mammogram Referr al. Due on due Goal Pap/HPV testing. Due on due Goal Td vaccine. Due on 18 due Goal [facility] Adult 18-64 yrs. Due on due Goal Influenza vaccin e. Due on due Goal Tdap. Due on due Goal [facility] Adult 18-64 years. Due on due Goal Depression scree wagner. Due on due Goal Mammogram Referr al. Due on due Goal Pap/HPV testing. Due on due Goal Depression scree wagner. Due on due Goal [facility] Adult 18-64 years. Due on due Goal Influenza vaccin e. Due on due Goal Td vaccine. Due on 18 due Goal Tdap. Due on due Goal [facility] Adult 18-64 yrs. Due on due Goal Mammogram Referr al. Due on due Goal Depression scree wagner. Due on due Goal Pap/HPV testing. Due on due Goal Mammogram Referr al. Due on due Goal [facility] Adult 18-64 yrs. Due on due Goal [facility] Adult 18-64 years. Due on due Goal Tdap. Due on due Goal Td vaccine. Due on 18 due Goal Influenza vaccin e. Due on due Goal Tdap. Due on due Goal Pap/HPV testing. Due on due Goal Mammogram Referr al. Due on due Goal Td vaccine. Due on 18 due Goal Depression scree wagner. Due on due Goal [facility] Adult 18-64 years. Due on due Goal Influenza vaccin e. Due on due Goal Influenza vaccin e. Due on due Goal Tdap. Due on due Goal SHA Adult 18-64 years. Due on due Goal Td vaccine. Due on 18 due Goal Mammogram Referr al. Due on due Goal Depression scree wagner. Due on due Goal Td vaccine. Due on 18 due Goal Tdap. Due on due Goal Influenza vaccin e. Due on due Goal SHA Adult 18-64 years. Due on due Goal Mammogram Referr al. Due on due Goal Influenza vaccin e. Due on due Goal Mammogram Referr al. Due on due Goal Tdap. Due on due Goal Td vaccine. Due on 17 due Goal Tdap. Due on due Goal Td vaccine. Due on 17 due Goal Mammogram Referr al. Due on due Goal Influenza vaccin e. Due on due Goal Mammogram Referr al. Due on due Goal Tdap. Due on due Goal Influenza vaccin e. Due on due Goal Td vaccine. Due on 17 due Goal Influenza vaccin e. Due on due Goal Mammogram Referr al. Due on due Goal Td vaccine. Due on 17 due Goal Tdap. Due on due Goal Tdap. Due on due Goal Influenza vaccin e. Due on due Goal Mammogram Referr al. Due on due Goal Td vaccine. Due on 17 due Goal Mammogram Referr al. Due on due Goal Tdap. Due on due Goal Influenza vaccin e. Due on due Goal Td vaccine. Due on 16 due Goal Tdap. Due on due Goal Influenza vaccin e. Due on due Goal Td vaccine. Due on 16 due Goal Mammogram Referr al. Due on due Goal Mammogram Referr al. [...] Amparo Vaginitis (CV)/Trichomonas vaginalis (TV), TMA (Use [place] Label Aptima Multi-test Only) (04708), Ordered on: Ordered Future Order: Lab Order Chlamydi a/Neisseria gonorrhoeae RNA, TMA ([id number]), Ordered on: Ordered Future Order: Lab Order HIV-1/2 Antigen and Antibodies, Fourth Generation, with Reflexes ([id number]), Ordered on: Ordered Future Order: Lab Order HSV 1/2 IGG, HERPESELECT TYPE SPECIFIC AB ([id number]), Ordered on: Ordered Future Order: Lab Order RPR (DX) W/REFL TITER AND CONFIRMATORY TESTING ([id number]), Ordered on: Ordered Future Order: Radiology Order XR Chest 2 Views Pa and Lateral ([id number]), Sent on: Sent Future Order: Lab Order SARS-CoV -2 Serology (COVID-19) Antibody (IgG), Immunoassay ([id number]), Ordered on: Ordered History Of Present Illness Encounter Date Complaint History Of Prese nt Illness std tests The patient erum sanz consented to have their visit with [facility] via Telehealth for their concern.Reason for [...] [facility] their concern.Reason for Telehealth Visit: State guidelines that residents should remain at home [Home-stay order and/or Quarantine]Telehealth Platform used: [Telephone or Audio/Visual Communication]: TelephoneIs this visit type clinically appropriate for this patient? [Yes/No]: YesIs this encounter in place of a yigm-gy-samd encounter? [Yes/No]: YesTotal Length of Telehealth Visit: [time spent - e.g.15 minutes]: 16 [id number] yo female presents with complain of left [...] hoang chest pain a few days before [place]. She choked on some food and ran [...] that lasted 2 weeks. She fatigues easily. joint pain Onset: 6 months ago. It [...] arms, tingling in the legs and weakness. asthma The initial visi t date was [...] stridor, tremor after inhaler use and wheezing. tele health The patient erum sanz [facility].Reason for Telehealth Visit: current state guidelines require patient stay at home. Telehealth Platform used: TelephoneIs this visit type clinically appropriate for this patient? YesIs this encounter in place of a vozd-lk-aicd encounter? YesTotal Length of Telehealth Visit: 15 minutes POSS YEAST INFECTION 49 yo femal e [...] sinus pressure, sore throat and weight loss. Sinus symptoms (acute) The sever ity of the problem is moderate. Pain Scale: 4/10. Both sides are affected. Symptoms are associated with recent URI. Symptoms are not associated with tobacco use. Associated symptoms include cough, headache, nasal drainage and sinus pressure. Pertinent negatives include fever. Musculoskeletal pain Spinal Care Patient is suffe ring from neck into hand numbness and low back pain into right leg. Pain first noticed at 26 years of age.Complicating injuries and/or lifestyle factors: Long history of painAggravating factors include: NARelieving factors include: deep tissue massagePain scale notice as of today (Out of 10): 6 LABS ONLY Anxiety There is worseni ng of previously [...] job because her job is being eliminated. RIGHT HEEL PAIN Onset: 1 year ag [...] getting out of bed in the morning. UTI The severity of the problem is [...] 8mm cyst. renal function normal on labs. UTI The severity of the problem is mild. Pain scale: 0/10. The symptoms are recurring. Presenting/Initial symptoms include dysuria, frequency and suprapubic pain. Symptoms are associated with recurring urinary tract infections. Aggravating factors include urination. Associated symptoms include dysuria, frequency, urgency and vaginal discharge. Pertinent negatives include penile discharge. referral Requesting refer ral for renal u/s [...] would like labs done today as well. URINE ODOR She requests kaden conazole for treatment of the expected vaginal yeast infection besides the antibiotic treatment for her uti. Hx of frequent uti but no fever this time. Urinary frequency Burning on urination cough Onset: 1 week ag o. Severity: 8. The patient describes the cough as moist and productive. It occurs persistently. The problem has become gradually worse. Context: sick family member. There are no aggravating factors. There are no relieving factors. Associated symptoms include cough, fatigue, fever, nasal congestion, pleuritic pain, sinus pressure and wheezing. Pertinent negatives include sore throat. UTI Onset: 1 Month. The problem is [...] include nausea, nocturia, rash or vaginal discharge. vision change The symptoms beg an 1 month ago. has small hemmorhages in sclera, she reports having blurred distance vision and difficulty seeing at night. Needs opthamology referral. prediabetes Was diagnosed wi th prediabetes but hasn't had labs in a long time. Would like labs. possible uti C/O of dysuria a nd [...] been exposed to passive smoke. LABS ONLY establish physical Patient is here today because she says that she is concnerned that she may be diabetic. she has not seen a doctor in a few years. She says that she has symptoms of diabetes that include nerve problems, and scars that have prolonged healing. Functional Status Date Functional Assessmen t No Information Instructions Date Instruction Additional Infor mation Patient will take ci profloxacin 500 as ordered and also take one fluconazole tablet after to prevent yeast infection. Related to Acute vaginitis Patient will have te sting as ordered and will follow up in 1 week for results in the office. Related to Screen for STD (sexually transmitted disease) Patient will have pr opranolol refilled per prior orders.This note has been created using [employer] and was completed in the EHR [...] return to the clinic. Related to Dysuria If your BP remains h igh without the anxiety of coming to the clinic we will have to consider placing you on blood pressure medication. Related to Elevated BP without diagnosis of hypertension We will treat your t deacon but [...] to your situation. Related to Vaginal discharge We will switch your antibiotics as you [...]
--- OUTSIDE RECORDS SUMMARY | 2024-12-29 15:40 | XMS_ITS | Clinical Summary ---
Author Organization [employer] [facility] Address [address] [place] [address] Phone Care Team Providers Care Auto Service Instructor Name Role Phone Erika Wiseman APRN Primary Care Physician [phone] Conditions or Problems Problem Name Problem Code Onset Date Status Entry Date Provider Comment Standard Description Annotate Body mass index (BMI) 29.0-29.9; adult Z68.29 (ICD-10-CM) 05/09 Active 05/09 Edith Anderson APRN Body mass index [BMI] 29.0-29.9, adult Body mass index (BMI) 31.0-31.9; adult Z68.31 (ICD-10-CM) 03/23 Correction 03/23 Edith Anderson APRN Body mass index [BMI] 31.0-31.9, adult Mole 499387594 (SNOMED CT) 05/09 Active 05/09 Eidth Anderson APRN Melanocytic nevus Body mass index [...] adult Presence of Essure implant contracepti ve 29099871460 9107 (SNOMED CT) Active Sofiya Hanson MD [...] nonvenomous insect and other nonvenomous arthropods, sequela 70614985 (SNOMED CT) 09/22 Active 09/23 Sofiya Hanson MD Tick bite Elevated blood pressure reading without diagnosis of hypertensio n 984971573 (SNOMED CT) 09/02 Resolved 09/02 Tiffani Monqiue HOT WORT SETTLER Elevated blood-pressure reading without diagnosis of hypertension Seasonal allergies 751252373 (SNOMED CT) 09/16 Active 09/16 Tiffani Monique HOT WORT SETTLER Seasonal allergy Body mass index (BMI) 30.0-30.9; adult Z68.30 (ICD-10-CM) 09/16 Removed 09/16 Tiffani Monique HOT WORT SETTLER Body mass index [BMI] 30.0-30.9, adult Body mass index (BMI) 30.0-30.9; adult Z68.30 (ICD-10-CM) 08/12 Correction 08/12 Tiffani Monique HOT WORT SETTLER Body mass index [BMI] 30.0-30.9, adult Hypertensio n 20096392 (SNOMED CT) 09/16 Active 09/16 Tiffani Monique HOT WORT SETTLER Hypertensive disorder Screening for lipid disorder 166235944 (SNOMED CT) 09/02 Inactive 09/02 Tiffani Monique HOT WORT SETTLER Procedure carried out on subject Flank pain, left 075946763 (SNOMED CT) 09/02 Inactive 09/02 Tiffani Monique HOT WORT SETTLER Left flank pain Elevated blood pressure reading without diagnosis of hypertensio n 885989411 (SNOMED CT) 09/02 Removed 09/02 Tiffani Monique HOT WORT SETTLER Elevated blood-pressure reading without diagnosis of hypertension [...] mass index [BMI] 29.0-29.9, adult Insect bite 341804103 (SNOMED CT) 08/12 Active 08/12 Cielo Echevarria APRN Insect bite - wound TICK Body mass index (BMI) 29.0-29.9; adult Z68.29 (ICD-10-CM) 07/09 Removed 07/09 Erika Wiseman APRN Body mass index [BMI] 29.0-29.9, adult Body mass index (BMI) 28.0-28.9; adult Z68.28 (ICD-10-CM) 06/29 Correction 06/29 [facility] HOT WORT SETTLER Body mass index [BMI] 28.0-28.9, adult Stenosis of cervix 31295035 (SNOMED CT) 07/09 Active 07/09 [facility] HOT WORT SETTLER Stenosis of cervix Body mass index (BMI) 28.0-28.9; adult Z68.28 (ICD-10-CM) 06/29 [facility] 06[facility] Body mass index [BMI] 28.0-28.9, adult Female stress incontinenc e 76906830 (SNOMED CT) 06/29 Active 06/29 [facility] Female urinary stress incontinence Family history of malignant neoplasm of uterus 988041349 (SNOMED CT) 06/29 Active 06/29 [facility] Family history of malignant neoplasm of uterus Mammographi c screening for breast cancer 51269411 (SNOMED CT) 06/29 Active 06/29 [facility] Screening mammography Screening for colon cancer 124045019 (SNOMED CT) 06/29 Active 06/29 [facility] Screening for malignant neoplasm of colon Screening for std 180958755 (SNOMED CT) 06/29 Active 06/29 [facility] Venereal disease screening ROUTINE GYNECOLOGIC AL EXAMINATION 27327124 (SNOMED CT) 06/29 Active 06/29 [facility] Gynec[facility] examination Abnormal uterine bleeding 06426208284 100 (SNOMED CT) 06/29 Active 06/29 [facility] HOT WORT SETTLER Abnormal uterine bleeding Tobacco User 674716412 (SNOMED CT) 06/29 Active 06/29 Meri Castillo MA Tobacco user Medications Medication Instructions Start Date Stop Date Generic Name NDC Provider DOXYCYCLINE MONOHYDRATE 100 MG CAPS Take 1 capsule by mouth twice a day doxycycline monohydrate 25795100522 Edith Monica HOT WORT SETTLER JOSÉ MIGUEL ALLERGY 180 MG TABS TAKE 1 TABLET BY MOUTH ONCE A DAY fexofenadine 99501093302 Edith Monica HOT WORT SETTLER ZYRTEC ALLERGY 10 MG CAPS Take 1 capsule by mouth once a day for 30 days cetirizine 53812699433 Edith Monica HOT WORT SETTLER DOXYCYCLINE MONOHYDRATE 100 MG CAPS Take 1 capsule by mouth twice a day doxycycline monohydrate 96970459942 Lulu Gomez MD JOSÉ MIGUEL ALLERGY 180 MG TABS TAKE 1 TABLET BY MOUTH ONCE A DAY fexofenadine 68454631475 Sofiya Hanson MD LISINOPRIL-HYDR OCHLOROTHIAZIDE 10-12.5 MG TABS Take 1 tablet by mouth once a day lisinopril-hydr ochlorothiazide 42147216619 Sofiya Hanson MD DOXYCYCLINE MONOHYDRATE 100 MG CAPS Take 1 capsule by mouth twice a day doxycycline monohydrate 84521431641 Sofiya Hanson MD LISINOPRIL 5 MG TABS Take 1 tablet by mouth once a day lisinopril 89156217771 Tiffani Monique HOT WORT SETTLER LISINOPRIL-HYDR OCHLOROTHIAZIDE 10-12.5 MG TABS Take 1 tablet by mouth once a day lisinopril-hydr ochlorothiazide 16536786078 Tiffani Monique HOT WORT SETTLER CETIRIZINE HCL 10 MG TABS Take 1 tablet by mouth at bedtime cetirizine 18638773755 Tiffani Monique HOT WORT SETTLER FLUTICASONE PROPIONATE 50 MCG/ACT SUSP [place] 1 spray into both nostrils once a day USE FOR UP TO 2 WEEKS AT A TIME fluticasone propionate 59845001957 Tiffani Monique HOT WORT SETTLER LISINOPRIL 5 MG TABS Take 1 tablet by mouth once a day lisinopril 90607044706 Tiffani Monique HOT WORT SETTLER DOXYCYCLINE MONOHYDRATE 100 MG CAPS Take 1 capsule by mouth twice a day doxycycline monohydrate 17007295145 Cielo Echevarria HOT WORT SETTLER Medications Administered No information available. Allergies, Adverse Reactions, Alerts Allergy Name Reaction Description Start Date Severity Statu s Provider CRAB hives all over body Critical Active Lulu Gomez MD Results Date Name Value Unit Range Flag Description Lab Report: HEMOGLOBIN A1c, TSH W/REFLEX TO FT4, CBC (INCLUDES DIFF/PLT) ... RPR NON-REACTIVE NON-REACTIVE N [place] Ab [Units/volume] in Serum by VDRL [...] in Blood ABS NEUTROPH 3801 CELLS/UL 10*3/uL 6838-6197 N Neutrophils [#/volume] in Blood TSH 1.55 [...] Test strip LABS ORDERED Urine Dip Auto 87271 Laboratory tests ordered Lab Report: LIPID PANEL [...] Plasma Plan of Care Type Date Detail Referral Dermatology Refe rral General [facility]erral [facility], [address] [place] [address], [address] Referral [facility] G[facility], [address] [facility] [address], [place], [address] [facility] Senior Data Scientist [place] Senior Data Scientist [facility], [address] [facility] [address], [place], [address] [facility] Senior Data Scientist [place] Senior Data Scientist [facility], [address] [facility] [address], [place], [address] [facility] Senior Data Scientist [place] Senior Data Scientist [facility], [address] [facility] [address], [place], [address] Referral excluded fr om report: Referral [facility]astro[facility], [address] [facility] [address], [place], [address] [facility] *NONE - COMMUNITY DEVELOPMENT COORDINATOR List Referral [facility], [address] [facility] [address], [place], [address] Referral excluded fr om report: Referral [facility] *NONE - COMMUNITY DEVELOPMENT COORDINATOR List Referral excluded fr om report: Pending [...] Medication list docu mented in medical record SCT-[id number] Medication Reconciliation CPT-3075F Most recent systolic blood pressure 130-139 mm Hg CPT-3079F Most recent diastoli c blood pressure 80-89 mm Hg CPT-1159F Medication list docu mented in medical record SCT-[id number] Medication Reconciliation SCT-[id number] Medication Reconciliation CPT-3074F Most recent systolic blood pressure <130 mm Hg CPT-3079F Most recent diastoli c blood pressure 80-89 mm Hg CPT-1159F Medication list docu mented in medical record CPT-1160F Review of all medica tions by a prescribing practitioner SCT-295700202 Never smoker CPT-3074F Most recent systolic blood pressure <130 mm Hg CPT-3079F Most recent diastoli c blood pressure 80-89 mm Hg CPT-3074F Most recent systolic blood pressure <130 mm Hg CPT-3079F Most recent diastoli c blood pressure 80-89 mm Hg SCT-[id number] Medication Reconciliation SCT-011356468 Never smoker [facility] 15476 T1 BMP CPT-1159F Medication list docu mented in medical record [facility] 395 T1 Urine Culture CPT-20887 Urine Dip Auto 71989 SCT-[id number] Medication Reconciliation SCT-198450053 Never smoker [facility] 77398 T1 CMP [facility] 1759 T1 CBC no diff [facility] 12853 T1 Lipid Panel SCT-[id number] Medication Reconciliation FORENSIC MEDICAL EXAMINER [facility] Senior Data Scientist [place] SCT-[id number] Medication Reconciliation SCT-141784461 Never smoker CPT-3077F Most recent systolic blood pressure >=140 mm Hg CPT-3079F Most recent diastoli c blood pressure 80-89 mm Hg CPT-1159F Medication list docu mented in medical record CPT-1160F Review of all medica tions by a prescribing practitioner CPT-34550 Urine Dip Auto 46001 CPT-82617 Test 71903 4004F Patient screened for tobacco use and received tobacco cessation intervention SCT-[id number] Medication Reconciliation SCT-103302029 Giving encouragement to exercise SCT-558864388 Never smoker CPT-3074F Most recent systolic blood pressure <130 mm Hg CPT-3079F Most recent diastoli c blood pressure 80-89 mm Hg CPT-1159F Medication list docu mented in medical record CPT-1160F Review of all medica tions by a prescribing practitioner Mammo Mammogram CPT-72181 Urine Dip Auto 95726 [facility] 8472 T1 Hep C Ab [facility] 12779 T1 HIV 1/2 Ag & Ab 4 th gen -consent required [facility] 39536 T1 RPR w/ reflex to titer & confirmation [facility] 470 T1 FSH [facility] 4021 T1 Estradiol [facility] 615 T1 LH [facility] 6399 T1 CBC with diff [facility] 496 T1 HGBA1c [facility] 05672 T1 TSH reflex to free T4 06/18/14 [facility] 395 T1 Urine Culture [facility] 59521 T1 ThinPrep w HR HPV /GC/Chlamydia mRNA E6/E[address] [facility] [facility]yn [facility] 5 [...]
--- OUTSIDE RECORDS SUMMARY | 2024-12-29 15:41 | XMS_ITS | Clinical Summary ---
Author Organization [facility] Address [address] [place] [address] Rd [address] entrance, 3rd [place] [address] Phone Care Team Providers Care Train Brake Operator Name Role Phone Unavailable Primary Care [...] COVID-19 Vaccine (1 - 2023-2 5 season) 2024 Influenza Vaccine (#1) 2024 Meningococcal B Vaccine Aged Out No l onger eligible based on patient's age to complete this topic Insurance #[address] [place] [address]
--- NOTE | 2024-12-29 15:48 | XR_ITS ---
FINAL REPORT CLINICAL HISTORY: bilateral hip pain FINDINGS: AP and frog leg views of the right hip were obtained. There is no acute fracture or dislocation. Joint space is preserved. Soft tissues are unremarkable. IMPRESSION: No acute osseous abnormality of the right hip. Reviewed, Interpreted and Dictated by Yesenia Woodruff MD Transcribed by Renetta Arias Authenticated and [facility]
--- NOTE | 2024-12-29 15:48 | XR_ITS ---
FINAL REPORT CLINICAL HISTORY: lumbar back pain FINDINGS: AP and lateral views of the lumbar spine were obtained. There is no prior exam for comparison. There is no acute fracture or malalignment. Vertebral body height is preserved. Disc space height is preserved. There are small anterior osteophytes at multiple levels. No acute paraspinal abnormality. IMPRESSION: Degenerative changes as above. Reviewed, Interpreted and Dictated by Yesenia Woodruff MD Transcribed by Renetta Arias Authenticated and [facility]
--- NOTE | 2024-12-29 15:48 | XR_ITS ---
FINAL REPORT CLINICAL HISTORY: thoracic back pain FINDINGS: AP and lateral views of the thoracic spine were obtained. There is no prior exam for comparison. There is no acute fracture or acute malalignment. Vertebral body height is preserved. There is mild multilevel degenerative disc disease. No acute paraspinal abnormality. IMPRESSION: Mild degenerative change without acute osseous abnormality of the thoracic spine. Reviewed, Interpreted and Dictated by Yesenia Woodruff MD Transcribed by Nayely Cameron Authenticated and [facility]
--- NOTE | 2024-12-29 15:48 | XR_ITS ---
FINAL REPORT CLINICAL HISTORY: bilateral hip pain FINDINGS: AP and frog leg views of the left hip were obtained. There is no acute fracture or dislocation. Joint space is preserved. Soft tissues are unremarkable. IMPRESSION: No acute osseous abnormality of the left hip. Reviewed, Interpreted and Dictated by Yesenia Woodruff MD Transcribed by Renetta Arias Authenticated and [facility]
[2024-12-29 16:59] LABS: Hematocrit 42.7 % (37.0-47.0); Hemoglobin 14.0 g/dL (12.2-16.2); Immature Granulocytes % 0.3 %; Mean Corpuscular HGB Conc 32.8 g/dL (31.8-35.4); Mean Corpuscular Hemoglobin 29.8 pg (27.0-31.2); Mean Corpuscular Volume 90.9 fl (81-99); Nucleated Red Blood Cells % 0 %; Platelet Count 241 K/mm3 (142-424); Red Blood Count 4.70 M/mm3 (4.20-5.40); Red Cell Distribution Width-SD 41.3 fL; White Blood Count 7.4 K/mm3 (4.8-10.8)
[2024-12-29 17:14] LABS: Hemoglobin A1C 5.3 % (4.0-6.0)
[2024-12-29 18:04] LABS: C-Reactive Protein 1.4 mg/L (0-4)
[2024-12-29 18:31] LABS: Thyroid Stimulating Hormone 0.31 uIU/mL (0.465-4.68)
[2024-12-29 18:50] LABS: Vitamin B12 898 pg/mL (239-931)
[2024-12-29 19:19] LABS: Iron 152 ug/dL (37-170)
[2024-12-29 19:28] LABS: Total Iron Binding Capacity 327 ug/dL (265-497)
[2024-12-29 19:59] LABS: Ferritin 27.9 ng/ml (11.1-264)
[2025-01-04 09:28] LABS: Lyme B. burgdorferi PCR Blood Negative (Negative)
== END 2024-12-29 23:59 | disposition home or self-care (01) ==
PROVIDERS: PCP Nurse Practitioner Family; Visit Provider Nurse Practitioner Family
DX: M47.814 Spondylosis without myelopathy or radiculopathy, thoracic region (principal); M47.816 Spondylosis without myelopathy or radiculopathy, lumbar region; M25.551 Pain in right hip; M25.552 Pain in left hip; R53.83 Other fatigue; R73.9 Hyperglycemia, unspecified; Z91.014 Allergy to mammalian meats
CPT/HCPCS: 36415; 72072; 72100; 73502; 82607; 82728; 83036; 83540; 83550; 84443; 85025; 86140; 87476

== ENCOUNTER 2025-02-02 20:46 | Emergency (ER) | payer MEDICAID, SELFPAY ==
--- OUTSIDE RECORDS SUMMARY | 2006-06-23 10:30 | XMS_ITS | Continuity of Care Document ---
Author Organization [facility] Address [address] [place] [address] Phone Care Team Providers Care Panelboard Operator Name Role Phone Anita Hernadez DO Unavailable Unavailable Procedures Procedure Date Office/outpatient visit,[facility] [place] 2006 Advance Directives Directive Yes / No Effective Date File Name No Information Encounters Encounter Description Practice Location Reason(s) For Visit Diagnoses Date Provider Providers Copied on Encounter Office/outpat ient visit,[facility], [facility], [address], [place], [place], [id number], [place] tel:[phone] 9553 [facility] No Information Satya Howard. [address] [place], [address], [place]. tel:[phone] Family History Family Member Type Diagnosis Age At Onset No Information Payers Payer name Insurance type Covered libertarian ID Authorjeremy carney(s) Nikole CASTRO [facility] [id number] Social History Type Description Quantity Date Captured Comments Sex Female Smoking Status No Information Chief Complaint And Reason For Visit No Information Reason For Referral Reason For Referral No Information History Of Present Illness Encounter Date Complaint History Of Prese nt Illness No Information Functional Status Date Functional Assessmen t No Information Instructions Date Instruction Additional Infor mation No Information Assessments Type Assessment Date No Information Patient Care Teams Name Effective Dates (start - stop) Status Members No Information
--- OUTSIDE RECORDS SUMMARY | 2006-06-23 10:30 | XMS_ITS | Continuity of Care Document ---
Author Organization [facility] Address [address] [place] [address] Phone Care Team Providers Care Bulk Pallet Builder Name Role Phone Anita Hernadez DO Unavailable Unavailable Procedures Procedure Date Office/outpatient visit,[facility] 2006 Advance Directives Directive Yes / No Effective Date File Name No Information Encounters Encounter Description Practice Location Reason(s) For Visit Diagnoses Date Provider Providers Copied on Encounter Office/outpat ient visit,[facility], [facility], [address], [place], [place], [id number], [place] tel:[phone] 4916 [facility] No Information Satya Howard. [address] [place], [address], [place]. tel:[phone] Family History Family Member Type Diagnosis Age At Onset No Information Payers Payer name Insurance type Covered alliance party ID Authorjeremy carney(s) Nikole CASTRO [facility] [id number] Social History Type Description Quantity Date Captured [...]
--- OUTSIDE RECORDS SUMMARY | 2006-06-23 10:30 | XMS_ITS | Continuity of Care Document ---
Author Organization [facility] Address [address] [place] [address] Phone Care Team Providers Care Early Childhood Teacher Assistant Name Role Phone Anita Hernadez DO Unavailable Unavailable Procedures Procedure Date Office/outpatient visit,[facility] [place] Advance Directives Directive Yes / No Effective Date File Name No Information Encounters Encounter Description Practice Location Reason(s) For Visit Diagnoses Date Provider Providers Copied on Encounter Office/outpat ient visit,[facility], [facility], [address], [place], [place], [id number], [place] tel:[phone] 7[address] [facility] No Information Satya Howard. [address] [place], [address], [place]. tel:[phone] Family History Family Member Type Diagnosis Age At Onset No Information Payers Payer name Insurance type Covered libertarian ID Authorjeremy carney(s) Nikole CASTRO [facility] [id number] Social History Type Description Quantity Date Captured [...]
--- OUTSIDE RECORDS SUMMARY | 2006-06-23 10:30 | XMS_ITS | Continuity of Care Document ---
Author Organization [facility] Address [address] [place] [address] Phone Care Team Providers Care Manager Community Development Name Role Phone Anita Hernadez DO Unavailable Unavailable Procedures Procedure Date Office/outpatient visit,[facility] 2006 Advance Directives Directive Yes / No Effective Date File Name No Information Encounters Encounter Description Practice Location Reason(s) For Visit Diagnoses Date Provider Providers Copied on Encounter Office/outpat ient visit,[facility], [facility], [address], [place], [place], [id number], [place] tel:[phone] 5883 [facility] No Information Satya [address]. [address] [place], [address], [place]. tel:[phone] Family History Family Member Type Diagnosis Age At Onset No Information Payers Payer name Insurance type Covered alliance party ID Authorjeremy carney(s) Nikole CASTRO [facility] [id number] Social History Type Description Quantity Date Captured [...]
--- OUTSIDE RECORDS SUMMARY | 2006-06-23 10:30 | XMS_ITS | Continuity of Care Document ---
Author Organization [facility] Address [address] [place] [address] Phone Care Team Providers Care Operations Specialists Name Role Phone Anita Hernadez DO Unavailable Unavailable Procedures Procedure Date Office/outpatient visit,[facility] 2006 Advance Directives Directive Yes / No Effective Date File Name No Information Encounters Encounter Description Practice Location Reason(s) For Visit Diagnoses Date Provider Providers Copied on Encounter Office/outpat ient visit,[facility], [facility], [address], [place], [place], [id number], [place] tel:[phone] 0069 [facility] No Information Satya [address]. [address] [place], [address], [place]. tel:[phone] Family History Family Member Type Diagnosis Age At Onset No Information Payers Payer name Insurance type Covered republican ID Authorjeremy carney(s) Nikole CASTRO [facility] [id number] Social History Type Description Quantity Date Captured [...]
--- OUTSIDE RECORDS SUMMARY | 2006-06-23 10:30 | XMS_ITS | Continuity of Care Document ---
Author Organization [facility] Address [address] [place] [address] Phone Care Team Providers Care Almond Huller Name Role Phone Anita Hernadez DO Unavailable Unavailable Procedures Procedure Date Office/outpatient visit,[facility] Advance Directives Directive Yes / No Effective Date File Name No Information Encounters Encounter Description Practice Location Reason(s) For Visit Diagnoses Date Provider Providers Copied on Encounter Office/outpat ient visit,[facility], [facility], [address], [place], [place], [id number], [place] tel:[phone] 4[address] [facility] No Information Satya Howard. [address] [place], [address], [place]. tel:[phone] Family History Family Member Type Diagnosis Age At Onset No Information Payers Payer name Insurance type Covered green party ID Authorjeremy carney(s) Nikole CASTRO [facility] [id number] Social History Type Description Quantity Date Captured [...]
--- OUTSIDE RECORDS SUMMARY | 2006-06-23 10:30 | XMS_ITS | Continuity of Care Document ---
Author Organization [facility] Address [address] [place] [address] Phone Care Team Providers Care Nurse Healthcare Manager Name Role Phone Anita Hernadez DO Unavailable Unavailable Procedures Procedure Date Office/outpatient visit,[facility] [place] Advance Directives Directive Yes / No Effective Date File Name No Information Encounters Encounter Description Practice Location Reason(s) For Visit Diagnoses Date Provider Providers Copied on Encounter Office/outpat ient visit,[facility], [facility], [address], [place], [place], [id number], [place] tel:[phone] 2836 [facility] No Information Satya Howard. [address] [place], [address], [place]. tel:[phone] Family History Family Member Type Diagnosis Age At Onset No Information Payers Payer name Insurance type Covered libertarian ID Authorjeremy carney(s) Nikole CASTRO [facility] [id number] Social History Type Description Quantity Date Captured [...]
--- OUTSIDE RECORDS SUMMARY | 2022-12-24 10:45 | XMS_ITS | Continuity of Care Document ---
Author Organization [facility] Address [address] [place] [address] Phone Care Team Providers Care Employee Benefits Specialist Name Role Phone Ari Allen Unavailable Unavailabl e Allergies, Adverse Reactions, Alerts Substance Reaction Status Criticality NITROFURANTOIN MACROCRYSTALLINE hives Active No Information nitrofurantoin hives Active No Informatio n Medications Medication Instructions Dosage Effective Dates (start - stop) Status Comments propranolol 20 mg tablet take 1 tablet by oral route 2 times every day 20 MG - Active Cipro 500 mg tablet take 1 tablet by oral route every 12 hours 500 MG - Active LORATADINE 10MG TABLETS TAKE 1 TABLET BY MOUTH EVERY DAY - Active Ventolin HFA 90 mcg/actuation aerosol inhaler inhale 2 puff by inhalation route every 4 - 6 hours as needed 180 MCG - Active Qvar RediHaler 80 mcg/actuation HFA breath activated aerosol inhale 2 puff by inhalation route 2 times every day 160 MCG - Active meloxicam 15 mg tablet take 1 tablet by oral route every day 15 MG - Active Flonase Allergy Relief 50 mcg/actuation nasal spray,suspension spray 1 - 2 spray by intranasal route every day in each nostril as needed 50-100 MCG - Active Diflucan 150 mg tablet take 1 tablet by oral route once - No Longer Active propranolol 20 mg tablet take 1 tablet by oral route 2 times every day 20 MG - No Longer Active Procedures Procedure Date OFFICE/OUTPATIENT VISIT, EST TOBACCO NON-USER WEIGHT RECORD BODY MASS INDEX DOCD OFFICE/OUTPATIENT VISIT EST OFFICE/OUTPATIENT VISIT, EST OFFICE/OUTPATIENT VISIT EST OFFICE/OUTPATIENT VISIT, EST OFFICE/OUTPATIENT VISIT, EST Handling and/or conveyance of specimen N Handling and/or conveyance of specimen S OFFICE/OUTPATIENT VISIT, EST OFFICE/OUTPATIENT VISIT, EST Albuterol non-comp unit 2.5mg 9 NEBULIZER INHALATION TREATMENT OFFICE/OUTPATIENT VISIT, EST OFFICE/OUTPATIENT VISIT, EST CHIROPRACTIC MANIPULATION Handling and/or conveyance of specimen A OFFICE/OUTPATIENT VISIT, EST URINALYSIS, NONAUTO W/SCOPE OFFICE/OUTPATIENT VISIT, EST Handling and/or conveyance of specimen F OFFICE/OUTPATIENT VISIT, EST Azithromycin OFFICE/OUTPATIENT VISIT, EST URINALYSIS Handling and/or conveyance of specimen J Handling and/or conveyance of specimen J OFFICE/OUTPATIENT VISIT, EST OFFICE/OUTPATIENT VISIT, EST OFFICE/OUTPATIENT VISIT, EST URINALYSIS Handling and/or conveyance of specimen S OFFICE/OUTPATIENT VISIT, EST URINALYSIS Handling and/or conveyance of specimen A OFFICE/OUTPATIENT VISIT, EST OFFICE/OUTPATIENT VISIT, EST URINALYSIS OFFICE/OUTPATIENT VISIT, EST URINE TEST Handling and/or conveyance of specimen D ROCEPHIN 1 GRAM THER/PROPH/DIAG INJ, SC/IM URINALYSIS OFFICE/OUTPATIENT VISIT, EST OFFICE/OUTPATIENT VISIT, EST Obtaining screen pap smear Obtaining screen pap smear OFFICE/OUTPATIENT VISIT, EST Obtaining screen pap smear OFFICE/OUTPATIENT VISIT, EST LABS DRAWN SPECIMEN HANDLING OFFICE/OUTPATIENT VISIT, NEW Extraction, Erupted Tooth Or Exposed Katelynn t (Elevati Intraoral-Complete Series Of Radiographi c Images Comprehensive Oral Evaluation-New Or Est ablished P Advance Directives Directive Yes / No Effective Date File Name No Information Encounters Encounter Description Practice Location Reason(s) For Visit Diagnoses Date Provider Providers Copied on Encounter OFFICE/OUTPA TIENT VISIT, EST [facility], [address] [id number], [place] tel:[phone] [facility] std tests (chief complaint) Acute vaginitisScre en for STD (sexually transmitted disease)Essen tial hypertension 3 Moraima Chapman. [address] [place], [place], [id number], [place]. tel:[phone] Referring Provider: Etta Hernandez, [address] [place], [address] . tel:[phone] OFFICE/OUTPA TIENT VISIT EST [facility], [address], [place], [place], [id number], [place] tel:[phone] [facility] telehealth visit (chief complaint) Left lateral ankle pain 1 Arabella Christiansen. [address] [place], [address], [place]. tel:[phone] [facility], [address] [place] [id number], [place] tel:[phone] [facility] [employer] [facility] No Information 1 Estuardo Matta. [address] [place], [address], [place]. tel:[phone] OFFICE/OUTPA TIENT VISIT, [facility], [address] [place], [address], [place] tel:[phone] [facility] CHEST PAIN BP CHECK (chief complaint) Essential hypertensionP recordial chest painContact with and (suspected) exposure to other viral communicable diseases 1 Camille Buck. [address] [place], [address], [place]. tel:[phone] OFFICE/OUTPA TIENT VISIT [facility], [address], [address], [place] tel:[phone] [facility] [employer] tele health (chief complaint)ast hma (chief complaint)wili nt pain (chief complaint) Polyarthralgi aCough variant asthmaOther mcfp (current) drug therapyInflam matory arthritisChro sally cough 0 Estuardo Calderon [address] [place], [address], [place]. tel:[phone] OFFICE/OUTPA TIENT VISIT, [facility], [address], [address], [place] tel:[phone] [facility] POSS YEAST INFECTION (chief complaint) Vaginal candidaSeason al allergic reactionHypot ension due to drugs 0 No Information OFFICE/OUTPA TIENT VISIT, [facility], [address], [address], [place] tel:[phone] [facility] poss. uti (chief complaint) Bacterial vaginosisOthe r specified bacterial agents as the cause of diseases classified elsewhereWeig ht gainHair lossOther machine long goods helper (current) drug therapy 9 Estuardo Chackon. [address] [place], [address], [place]. tel:[phone] OFFICE/OUTPA TIENT VISIT, [facility], [address], [address], [place] tel:[phone] [facility] POSSIBLE YEAST INFECTION. (chief complaint) Unprotected sexual intercourseVa ginal discharge 9 Behzad Workman. [address] [place], [address], [place]. tel:[phone] OFFICE/OUTPA TIENT VISIT, [facility], [address], [address], [place] tel:[phone] [facility] COLD SYMPTOMS (chief complaint) URI with cough and congestionCou gh variant asthmaAcute bacterial sinusitisOthe r specified bacterial agents as the cause of diseases classified elsewhere 9 Estuardo Matta. [address] [place], [address], [place]. [phone] OFFICE/OUTPA TIENT VISIT, [facility], [address] [place], [address], [place] tel:[phone] [facility] cough (chief complaint) URI with cough and congestionChr onic allergic rhinitis 9 Estuardo Matta. [address] [place], [address], [place]. tel:[phone] OFFICE/OUTPA TIENT VISIT, [facility], [address], [address], [place] tel:[phone] [facility] Musculoskelet al pain (chief complaint)Sin us symptoms (acute) (chief complaint) Acute upper respiratory infection, unspecifiedAc chinik non-recurrent frontal sinusitis 9 Camille Buck. [address] [place], [address], [place]. tel:[phone] [facility], [address], [address], [place] tel:[phone] [facility] Spinal Care (chief complaint) Segmental and somatic dysfunction of cervical regionSegment al and somatic dysfunction of lumbar region 8 Sesar Bella. [address] [place], [address], [place]. tel:[phone] [facility], [address], [address], [place] tel:[phone] [facility] LABS ONLY (chief complaint) Family history of diseases of the ms sys and connective tiss 0 8 Camille Buck. [address] [place], [address], [place]. tel:[phone] OFFICE/OUTPA TIENT VISIT, EST [facility], [address], [address], [place] tel:[phone] [facility] RIGHT HEEL PAIN (chief complaint)Anx iety (chief complaint) Chronic fatiguePanic attacksPain of right heelHair lossPolyarthr algiaFamily history of rheumatic joint diseaseLeft foot pain 0 8 Camille Buck. [address] [place], [address], [place]. [phone] OFFICE/OUTPA TIENT VISIT, EST [facility], [address], [address], [place] tel:[phone] [facility] UTI (chief complaint) DysuriaDysuri a 0 8 Estuardo Matta. [address] [place], [address], [place]. tel:[phone] OFFICE/OUTPA TIENT VISIT, EST [facility], [address], [address], [place] tel:[phone] [facility] STD check (chief complaint)Fol low up on lab test(s) (chief complaint) Vaginal dischargeChla mydia contactElevat ed BP without diagnosis of hypertension 8 Estuardo Sigrid. [address] [place], [address], [place]. tel:[phone] OFFICE/OUTPA TIENT VISIT, [facility], [address], [address], [place] tel:[phone] [facility] UTI symptoms not getting better (chief complaint) Acute cystitis with hematuria 8 Estuardo Sigrid. [address] [place], [address], [place]. tel:[phone] OFFICE/OUTPA TIENT VISIT, [facility], [address], [address], [place] tel:[phone] [facility] UTI (chief complaint) DysuriaDysuri aVaginal dischargePelv ic pain in female 8 Estuardo Sigrid. [address] [place], [address], [place]. tel:[phone] OFFICE/OUTPA TIENT VISIT, [facility], [address], [address], [place] tel:[phone] [facility] sore throat (chief complaint) Tender lymph nodeRight ear painSore throatProduct radha cough 7 Camille Buck. [address] [place], [address], [place]. tel:[phone] OFFICE/OUTPA TIENT VISIT, [facility], [address], [address], [place] tel:[phone] [facility] results (chief complaint) BV (bacterial vaginosis)Jesusita vated BP without diagnosis of hypertensionA trophy of right kidneyRenal cyst 7 Estuardo Sigrid. [address] [place], [address], [place]. [phone] OFFICE/OUTPA TIENT VISIT, [facility], [address], [address], [place] tel:[phone] [facility] UTI (chief complaint)ref erral (chief complaint) DysuriaPelvic pain in femaleRenal cyst, rightHx gestational diabetes 7 Estuardo Sigrid. [address] [place], [address], [place]. tel:[phone] OFFICE/OUTPA TIENT VISIT, [facility], [address], [place], [place], [address], [place] tel:[phone] [facility] Burning on urination (chief complaint)Uri nary frequency (chief complaint)URI NE ODOR (chief complaint) DysuriaAcute cystitis with hematuria 7 No Information OFFICE/OUTPA TIENT VISIT, [facility], [address], [place], [place], [address], [place] tel:[phone] [facility] cough (chief complaint) CoughFever, unspecified fever cause 7 Camille Buck. [address] [place], [address], [place]. tel:[phone] OFFICE/OUTPA TIENT VISIT, [facility], [address], [place], [place], [address], [place] tel:[phone] [facility] UTI (chief complaint)pre diabetes (chief complaint)vis ion change (chief complaint) DysuriaAcute pyelonephriti sAcute cystitis with hematuriaPred iabetesDysuri aEncounter for test, result unknown 6 Camille Buck. [address] [place], [address], [place]. tel:[phone] OFFICE/OUTPA TIENT VISIT, [facility], [address], [address], [place] tel:[phone] [facility] possible uti (chief complaint) DysuriaCystit is 6 Estuardo Matta. [address] [place], [address], [place]. tel:[phone] OFFICE/OUTPA TIENT VISIT, [facility], [address], [address], [place] tel:[phone] [facility] *Rash (chief complaint) Food allergic dermatitisOth bacterial agents as the cause of diseases classd elswhr 6 Estuardo Matta. [address] [place], [address], [place]. tel:[phone] OFFICE/OUTPA TIENT VISIT, [facility], [address] [place], [address], [place] tel:[phone] [facility] annual exam (chief complaint) Encntr screen for infections w sexl mode of transmissEnco unter for screening for oth infec/parastc diseasesEncou nter for screening for human papillomaviru s (HPV)Encounte r for gynecological examination (general) (routine) with abnormal findingsEncnt r for admissions clinician exam (general) (routine) w/o abn findingsBV (bacterial vaginosis)Oth er specified bacterial agents as the cause of diseases classified elsewhereEnco unter for screening breast examinationHx of breast implants, bilateralHist ory of abdominoplast y 6 Buffy Burns. [address] [place], [place], [address], [place]. tel:[phone] OFFICE/OUTPA TIENT VISIT, [facility], [address], [place], [place], [address], [place] tel:[phone] [facility] PAP test (chief complaint) PrediabetesHy perlipidemiaV isit for routine admissions clinician examScreening breast examinationBa cterial vaginosisBact erial infectionScre ening examination for venereal diseaseOther specified chlamydial diseasesSPECI AL SCREEN EXAM HPV 5 Buffy Burns. [address] [place], [place], [address], [place]. tel:[phone] [facility], [address], [place], [place], [address], [place] tel:[phone] [facility] LABS ONLY (chief complaint) Dental caries, unspecified 3- 4 Buffy Burns. [address] [place], [place], [address], [place]. tel:[phone] OFFICE/OUTPA TIENT VISIT, NEW [facility], [address], [place], [place], [address], [place] tel:[phone] [facility] physical (chief complaint)est ablish (chief complaint) Routine medical examScreening for diabetes mellitusScree wagner for thyroid disorderScree wagner, anemia, deficiency, iron 0 4 Ross Boone. [address] [place], [address], [place]. tel:[phone] [facility], [address], [place], [place], [address], [place] tel:[phone] [facility] Dental caries, unspecified 3 Mousa Nasr. [address] [place], [place], [address]. [phone] [facility], [address], [place], [place], [address], [place] tel:[phone] [facility] Dental caries, unspecified 6 3 Mousa Nasr. [address] [place], [place], [address]. tel:[phone] Family History Family Member Type Diagnosis Age At Onset Father Problem (finding) Payers Payer name Insurance type Covered republican ID Juan Jose carney(s) [employer] [id number] Social History Type Description Quantity Date Captured Comments Alcohol Use Details Unknown Caffeine Use Details Unknown Tobacco Use Status Current non-smoker Smoking Status Never smoker Non-Smoking Tobacco Use Details : No Details Available : No Details Available Sex Female Sexual Orientation Straight or heterosexual Gender Identity Female Chief Complaint And Reason For Visit From encounter dated '12/24/2022 15:45'. std tests (chief complaint). Description: The patient verbally consented to have their visit with [facility] via Telehealth for their concern.Reason for Telehealth Visit: Home-stay orderTelehealth Platform used: Telephone or Audio CommunicationIs this visit type clinically appropriate for this patient? YesIs this encounter in place of a face to face encounter? Yes.Magaly is a 52-year-old female seen via telemedicine for STI panel ordering. Patient states that she has suspicion of believesshe may have been exposed to sexually transmitted infection and seeks testing for such. Patient is also complaining of urinary tract infection. She has had them once or twice per year for several years. She also developed vaginal yeast infections after taking antibiotics for yeast for urinary tractinfection. Reason For Referral Reason For Referral No Information Plan Of Treatment Date Type Action Status Goal FIT/FOBT/Occult Blood, Stool. Due on due Goal Lipid Panel due Goal Colonoscopy. Due on 023 due Goal Mammogram. Due on due Goal Depression scree wagner. Due on due Goal Dental exam. Due on 023 due Goal Alcohol/chemical dependency screeing. Due on due Goal Urinalysis due Goal Pap/HPV testing. Due on due Goal SHA Adult 18-64 years. Due on due Goal Dental exam. Due on due Goal Lipid Panel. Due on due Goal Pap/HPV testing. Due on due Goal Alcohol/chemical dependency screeing. Due on due Goal Urinalysis due Goal Gonorrhea Screening due Goal Depression scree wagner. Due on due Goal eGFR. Due on due Goal [facility] Adult 18-64 years. Due on due Goal Hep C Ab due Goal HIV screen due Goal Lipid Panel. Due on due Goal Urinalysis due Goal Diabetes screeni ng. Due on due Goal eGFR. Due on due Goal Alcohol/chemical dependency screeing. Due on due Goal Depression scree wagner. Due on due Goal Hep C Ab due Goal Gonorrhea Screening due Goal Pap/HPV testing. Due on due Goal HIV screen due Goal SHA Adult 18-64 years. Due on due Goal Dental exam. Due on due Goal SHA Adult 18-64 years. Due on due Goal Depression scree wagner. Due on due Goal Alcohol/chemical dependency screeing. Due on due Goal Dental exam. Due on 020 due Goal Gonorrhea Screening due Goal Hep C Ab due Goal Lipid Panel due Goal HIV screen due Goal Pap/HPV testing. Due on due Goal Depression scree wagner. Due on due Goal Pap/HPV testing. Due on due Goal Alcohol/chemical dependency screeing. Due on due Goal Dental exam. Due on due Goal SHA Adult 18-64 years. Due on due Goal Lipid Panel due Goal HIV screen due Goal Hep C Ab due Goal Lipid panel due Goal Gonorrhea Screening due Goal Diabetes screeni ng. Due on due Goal Pap/HPV testing. Due on due Goal Td vaccine. Due on 19 due Goal Depression scree wagner. Due on due Goal Influenza vaccin e. Due on due Goal Mammogram Referr al. Due on due Goal Tdap. Due on due Goal PAP. Due on due Goal SHA Adult 18-64 yrs. Due on due Goal SHA Adult 18-64 years. Due on due Goal Influenza vaccin e. Due on due Goal Mammogram Referr al. Due on due Goal Td vaccine. Due on 19 due Goal Pap/HPV testing. Due on due Goal SHA Adult 18-64 yrs. Due on due Goal Tdap. Due on due Goal [facility] Adult 18-64 years. Due on due Goal Depression scree wagner. Due on due Goal Mammogram Referr al. Due on due Goal Td vaccine. Due on 19 due Goal [facility] Adult 18-64 years. Due on due Goal Tdap. Due on due Goal Influenza vaccin e. Due on due Goal Pap/HPV testing. Due on due Goal Depression scree wagner. Due on due Goal [facility] Adult 18-64 yrs. Due on due Goal Mammogram Referr al. Due on due Goal Pap/HPV testing. Due on due Goal Influenza vaccin e. Due on due Goal Td vaccine. Due on 19 due Goal [facility] Adult 18-64 yrs. Due on due Goal Depression scree wagner. Due on due Goal [facility] Adult 18-64 years. Due on due Goal Tdap. Due on due Goal Mammogram Referr al. Due on due Goal Tdap. Due on due Goal Td vaccine. Due on 19 due Goal Pap/HPV testing. Due on due Goal Influenza vaccin e. Due on due Goal Depression scree wagner. Due on due Goal [facility] Adult 18-64 years. Due on due Goal [facility] Adult 18-64 yrs. Due on due Goal Mammogram Referr al. Due on due Goal Depression scree wagner. Due on due Goal Pap/HPV testing. Due on due Goal Td vaccine. Due on 18 due Goal Influenza vaccin e. Due on due Goal Tdap. Due on due Goal [facility] Adult 18-64 years. Due on due Goal [facility] Adult 18-64 yrs. Due on due Goal Mammogram Referr al. Due on due Goal Depression scree wagner. Due on due Goal [facility] Adult 18-64 years. Due on due Goal Tdap. Due on due Goal Influenza vaccin e. Due on due Goal [facility] Adult 18-64 yrs. Due on due Goal Td vaccine. Due on 18 due Goal Pap/HPV testing. Due on due Goal Mammogram Referr al. Due on due Goal Td vaccine. Due on 18 due Goal Influenza vaccin e. Due on due Goal Depression scree wagner. Due on due Goal Pap/HPV testing. Due on due Goal [facility] Adult 18-64 years. Due on due Goal [facility] Adult 18-64 yrs. Due on due Goal Tdap. Due on due Goal Influenza vaccin e. Due on due Goal Td vaccine. Due on 18 due Goal Tdap. Due on due Goal Mammogram Referr al. Due on due Goal Pap/HPV testing. Due on due Goal Depression scree wagner. Due on due Goal [facility] Adult 18-64 years. Due on due Goal SHA Adult 18-64 yrs. Due on due Goal Influenza vaccin e. Due on due Goal Depression scree wagner. Due on due Goal Td vaccine. Due on 18 due Goal Mammogram Referr al. Due on due Goal Tdap. Due on due Goal Pap/HPV testing. Due on due Goal SHA Adult 18-64 years. Due on due Goal Mammogram Referr al. Due on due Goal Influenza vaccin e. Due on due Goal Td vaccine. Due on 18 due Goal [facility] Adult 18-64 years. Due on due Goal Tdap. Due on due Goal SHA Adult 18-64 years. Due on due Goal Influenza vaccin e. Due on due Goal Tdap. Due on due Goal Td vaccine. Due on 18 due Goal Depression scree wagner. Due on due Goal Mammogram Referr al. Due on due Goal Td vaccine. Due on due Goal Tdap. Due on due Goal Mammogram Referr al. Due on due Goal Influenza vaccin e. Due on due Goal Influenza vaccin e. Due on due Goal Mammogram Referr al. Due on due Goal Td vaccine. Due on due Goal Tdap. Due on due Goal Tdap. Due on due Goal Td vaccine. Due on due Goal Influenza vaccin e. Due on due Goal Mammogram Referr al. Due on due Goal Td vaccine. Due on due Goal Mammogram Referr al. Due on due Goal Influenza vaccin e. Due on due Goal Tdap. Due on due Goal Td vaccine. Due on due Goal Mammogram Referr al. Due on due Goal Influenza vaccin e. Due on due Goal Tdap. Due on due Goal Td vaccine. Due on 16 due Goal Mammogram Referr al. Due on due Goal Influenza vaccin e. Due on due Goal Tdap. Due on due Goal Mammogram Referr al. Due on due Goal Td vaccine. Due on 16 due Goal Influenza vaccin e. Due on due Goal Tdap. Due on due Goal Mammogram Referr al. Due on due Goal Tdap. Due on due Goal Influenza vaccin e. Due on due Goal Td vaccine. Due on 16 due Goal SHA Adult 18-64 years. Due on due Referral Ordered: X-RAY EXAM OF ANKLE-COMPLETE Left ankle ordered Referral Ordered: Referrals: Cardiology. Evaluate and treat ordered Referral Ordered: TRANSVAGINAL US, NON-OB ordered Referral Ordered: RENAL/KIDNEY ULTRASOUND ordered Patient Education Fatigue: Care Instructi ons completed Patient Education Painful Urinat ion (Dysuria): Care Ins~ completed Patient Education Elevated Blood Pressure: Care Instruc~ completed Patient Education Hives: After Your Visit completed Patient Education Pelvic Pain: After Your Visit completed Patient Education Sore Throat: After Your Visit completed Future Order: Lab Order SureSwab Advanced Amparo Vaginitis (CV)/Trichomonas vaginalis (TV), TMA (Use [place] Label Aptima Multi-test Only) ([id number]), Ordered on: Ordered Future Order: Lab Order Chlamydi a/Neisseria gonorrhoeae RNA, TMA ([id number]), Ordered on: Ordered Future Order: Lab Order HIV-1/2 Antigen and Antibodies, Fourth Generation, with Reflexes ([id number]), Ordered on: Ordered Future Order: Lab Order HSV 1/2 IGG, HERPESELECT TYPE SPECIFIC AB ([id number]), Ordered on: Ordered Future Order: Lab Order RPR (DX) W/REFL TITER AND CONFIRMATORY TESTING ([id number]), Ordered on: Ordered Future Order: Radiology Order XR Chest 2 Views Pa and Lateral ([id number]), Sent on: Sent Future Order: Lab Order SARS-CoV -2 Serology (COVID-19) Antibody (IgG), Immunoassay ([id number]), Ordered on: Ordered History Of Present Illness Encounter Date Complaint History Of Prese nt Illness std tests The patient erum sanz consented [facility] [facility] via Telehealth for their concern.Reason for Telehealth Visit: Home-stay orderTelehealth Platform used: Telephone or Audio CommunicationIs this visit type clinically appropriate for this patient? YesIs this encounter in place of a face to face encounter? Yes.Magaly is a 52-year-old female seen via telemedicine for STI panel ordering. Patient states that she has suspicion of believes she may have been exposed to sexually transmitted infection and seeks testing for such. Patient is also complaining of urinary tract infection. She has had them once or twice per year for several years. She also developed vaginal yeast infections after taking antibiotics for yeast for urinary tract infection. telehealth visit Today, the courtney ent verbally consented to [facility]health for their concern.Reason for Telehealth Visit: State guidelines that residents should remain at home [Home-stay order and/or Quarantine]Telehealth Platform used: [Telephone or Audio/Visual Communication]: TelephoneIs this visit type clinically appropriate for this patient? [Yes/No]: YesIs this encounter in place of a [id number] encounter? [Yes/No]: YesTotal Length of Telehealth Visit: [time spent - e.g.15 minutes]: 15 [id number] yo female presents with complain of left ankle painTwo months prior, she rolled her ankle laterallyIt feels like it had not healed properly as it is still hurtingThe bones seems to be popping in and out of the jointShe could put a little pressure on the joint when she walksHowever, at night time, it swells upShe currently takes Ibuprofen and feels like it is respondingDid not have any x-ray done on the ankle. CHEST PAIN BP CHECK patient noti hoang chest pain a few days before Herve. She choked on some food and ran to the bathroom. While she was choking she developed severe chest pain that radiated down both arms. She has run out of BP medications. Then 1 week later she had another episode of chest pain. She reports that at the end of January she had an episode of loss of taste and loss of smell, and bad cough that lasted 2 weeks. She fatigues easily. tele health The patient erum sanz consented to have their visit with [facility] via Telehealth for their concern.Reason for Telehealth Visit: current state guidelines require patient stay at home. Telehealth Platform used: TelephoneIs this visit type clinically appropriate for this patient? YesIs this encounter in place of a [id number] encounter? YesTotal Length of Telehealth Visit: 15 minutes asthma The initial visi t date was 12/16/2019. The symptoms have changed. Context: allergic. Aggravating factors include animals, exercise, respiratory infection, smoke and stress. The patient denies any relieving factors. Associated symptoms include dry cough and dyspnea with moderate exercise. Pertinent negatives include awakening with cough, awakening with dyspnea, awakening with wheeze, dyspnea at rest, dyspnea with intense exercise, excessive sputum, hemoptysis, hoarseness, irregular heartbeat/palpitations, mucus plug production, oral thrush, pleuritic pain, post nasal drainage, productive cough, reflux, seasonal rhinitis symptoms, sinusitis, stridor, tremor after inhaler use and wheezing. joint pain Onset: 6 months ago. It occurs constantly and is worsening. There is no radiation. The pain is aching and throbbing. Context: there is no injury. Associated symptoms include crepitus, decreased mobility and nocturnal awakening. Pertinent negatives include bruising, difficulty initiating sleep, joint instability, joint tenderness, limping, locking, nocturnal pain, numbness, popping, spasms, swelling, tingling in the arms, tingling in the legs and weakness. POSS YEAST INFECTION 49 yo femal e in with sx. of vaginal amparo. Pt seen in ER 10-12 days ago for bug bite to Lt calf with resultant cellulitis and was also found to have a UTI at that time. All symptoms from ER visit resolved. Pt now with thick white vaginal discharge and vaginal itching. Pt had been on Propranolol for HTN and states B/P now runs low and med makes her dizzy, has stopped medication with resolution of dizziness, instructed to stay off medication. Pt with moderate seasonal allergies and uses inhalers and Claritin with relief, requesting refill of Claritin. Pt denies cough or dyspnea.. Pt is practicing social distancing and stay at home order for Covid 19 and PPE when leaving home. Denies cough, flu sx., fever or other. poss. uti Pt here with mya monroy over a possible yeast infection. She had BV on the last sureswab in Nov and was not treated. She would also like her labs checked as well as she is having some weight gain and hair loss. POSSIBLE YEAST INFECTION. The sy mptoms began 1 week ago. The symptoms are reported as being moderate. Associated symptoms include vaginal itching and discomfort. reports recent abx. use COLD SYMPTOMS The patient desc ribes the cough as productive. It occurs persistently. The problem has become gradually worse. Context: allergies. There are no aggravating factors. Relieving factors include antihistamines and bronchodilators. Associated symptoms include cough, nasal congestion, rhinorrhea, sinus pressure and wheezing. Pertinent negatives include dyspnea and dyspnea on exertion. Additional information: completed z pack with no improvement in her symptoms. cough The patient desc ribes the cough as productive. Context: known asthmatic. Symptoms are aggravated by lying down. Relieving factors include antihistamines. Associated symptoms include cough, fatigue, fever, nasal congestion and wheezing. Pertinent negatives include chills, dyspnea, dyspnea on exertion, epistaxis, heartburn, hemoptysis, hoarseness, night sweats, pleuritic pain, post-nasal drainage, rhinitis, rhinorrhea, sinus pressure, sore throat and weight loss. Musculoskeletal pain Sinus symptoms (acute) The sever ity of the problem is moderate. Pain Scale: 4/10. Both sides are affected. Symptoms are associated with recent URI. Symptoms are not associated with tobacco use. Associated symptoms include cough, headache, nasal drainage and sinus pressure. Pertinent negatives include fever. Spinal Care Patient is suffe ring from neck into hand numbness and low back pain into right leg. Pain first noticed at 26 years of age.Complicating injuries and/or lifestyle factors: Long history of painAggravating factors include: NARelieving factors include: deep tissue massagePain scale notice as of today (Out of 10): 6 LABS ONLY RIGHT HEEL PAIN Onset: 1 year ag o. It occurs constantly and is worsening. Location: right heel. The pain is aching and sharp. Context: there is no injury. The pain is aggravated by movement, walking and standing. There are no relieving factors. Associated symptoms include decreased mobility and limping. Pertinent negatives include bruising, crepitus, joint instability, locking, nocturnal pain and swelling. Additional information: pain is worst when getting out of bed in the morning. Anxiety There is worseni ng of previously reported symptoms. The patient reports functioning as very difficult. The patient presents with depressed mood and feelings of guilt but denies anxious/fearful thoughts or increased energy. The patient's risk factors include financial worries and relationship problems. The Anxiety is not with social interactions. The Anxiety is associated with trembling and palpitations. The patient denies any chronic pain and headache. Additional information: she had an end to a relationship and needs to find a new job because her job is being eliminated. UTI The severity of the problem is moderate. Pain scale: 4/10. The problem has worsened. The symptoms are constant. Presenting/Initial symptoms include burning, dysuria and frequency. Symptoms are associated with recurring urinary tract infections. Aggravating factors include urination. Denies relieving factors. Associated symptoms include dysuria and urgency. Pertinent negatives include dribbling, fatigue, fever, flank pain, frequency, pelvic pain or vaginal discharge. STD check Here needing STD testing as pos. chlamydia contact. She reports continued vaginal discharge that is thin and has a foul odor. Follow up on lab test(s) UTI symptoms not getting better She took the macrobid and after one dose ended up getting hives, took a dose of benadryl and the hives ave resolved. She denies any resp. symptoms with the hives. She is still having urinary symptoms. UTI The severity of the problem is moderate. Pain scale: 5/10. The problem is improving. The symptoms are constant. Presenting/Initial symptoms include abdominal pain, dribbling and dysuria. Denies aggravating factors. Denies relieving factors. Associated symptoms include pelvic pain and vaginal discharge. Pertinent negatives include abdominal pain, dribbling, dysuria, fatigue, fever, flank pain, frequency, hematuria, hesitancy, nausea, nocturia, pressure, rash, retention, urgency or vomiting. Additional information: hx of essure. sore throat Onset: 3 Days. T he problem is severe. Pain scale: 9/10. The problem has worsened. Symptoms are associated with exposure to strep and recent cold. Symptoms are not relieved by OTC analgesics or throat lozenges. Associated symptoms include cough (persistent), fatigue, myalgia, otalgia, pharyngitis, sputum and lymhadenopathy. Pertinent negatives include fever, rash or wheezing. results here for lab res ults, all STD testing negative, but equivocal for BV. Pt with some discharge so would like treatment. All other labs essentially WNL. She notes that her urinary symptoms have completely resolved with abx that were suspectible base don the urine culture. Renal u/s shows right atrophic kidney with 8mm cyst. renal function normal on labs. referral Requesting refer ral for renal u/s as last year had a CT scan last year that showed renal cyst to the right kidney and has never followed up regarding this. She is worried that maybe this is related to her chronic recurrent UTIs.Pt also has not had any labs done for years and has a hx of gestational DM, would like labs done today as well. UTI The severity of the problem is mild. Pain scale: 0/10. The symptoms are recurring. Presenting/Initial symptoms include dysuria, frequency and suprapubic pain. Symptoms are associated with recurring urinary tract infections. Aggravating factors include urination. Associated symptoms include dysuria, frequency, urgency and vaginal discharge. Pertinent negatives include penile discharge. Burning on urination URINE ODOR She requests kaden conazole for treatment of the expected vaginal yeast infection besides the antibiotic treatment for her uti. Hx of frequent uti but no fever this time. Urinary frequency cough Onset: 1 week ag o. Severity: 8. The patient describes the cough as moist and productive. It occurs persistently. The problem has become gradually worse. Context: sick family member. There are no aggravating factors. There are no relieving factors. Associated symptoms include cough, fatigue, fever, nasal congestion, pleuritic pain, sinus pressure and wheezing. Pertinent negatives include sore throat. prediabetes Was diagnosed wi th prediabetes but hasn't had labs in a long time. Would like labs. vision change The symptoms beg an 1 month ago. has small hemmorhages in sclera, she reports having blurred distance vision and difficulty seeing at night. Needs opthamology referral. UTI Onset: 1 Month. The problem is severe. Pain scale: 5/10. The problem has worsened. The symptoms are recurring. Presenting/Initial symptoms include dysuria, frequency, suprapubic pain, urgency and right flank pain. Symptoms are associated with diabetes and recurring urinary tract infections. Denies aggravating factors. Denies relieving factors. Relieving factors additional comments: recent bactrim DS. Associated symptoms include abdominal pain, dysuria, fever, flank pain, hematuria, pelvic pain and urgency. Pertinent negatives include nausea, nocturia, rash or vaginal discharge. possible uti C/O of dysuria a nd hematuria over the last two days. History of previous UTIs but has not had one for over 4 years. Denies any flank pain or fevers at this time. *Rash Pt ate crab last night and since then has had hives and an itchy rash on bilat arms and abd. She denies any shortness of breath or facila swelling but does report an itching feeling in her throat. She says she took a bendaryl last night which helped for a short time with the rash and itching. annual exam Currently pregna nt: no. : 9. Parity: Term: 5. : 4. Last LMP was 12/16/2015. Her menses is regular. Negative for: breast discharge and breast lump(s). Positive for: breast pain and breast self exam. Menopausal symptoms negative for: hot flashes, insomnia, night sweats and vaginal dryness. Associated symptoms include vaginal discharge. Pertinent negatives include abnormal bleeding (hematology), abnormal vaginal bleeding, anxiety, decreased libido, depression, difficulty falling sleep, dyspareunia, history of infertility, nocturia, sexual dysfunction, sleep disturbances, urinary incontinence, urinary urgency and vaginal itching. She has been exposed to passive smoke. Additional information: Has vaginal discharge and discomfort for a few weeks. PAP test Currently pregna nt: no. : 6. Parity: : 6. Last LMP was 08/04/2014. Negative for: breast discharge, breast lump(s) and breast pain. Positive for: breast self exam. Associated symptoms include vaginal discharge. Pertinent negatives include abnormal bleeding (hematology), abnormal vaginal bleeding, anxiety, decreased libido, depression, difficulty falling sleep, dyspareunia, history of infertility, nocturia, sexual dysfunction, sleep disturbances, urinary incontinence, urinary urgency and vaginal itching. The patient does not use tobacco. She has been exposed to passive smoke. LABS ONLY physical Patient is here today because she says that she is concnerned that she may be diabetic. she has not seen a doctor in a few years. She says that she has symptoms of diabetes that include nerve problems, and scars that have prolonged healing. establish Functional Status Date Functional Assessmen t No Information Instructions Date Instruction Additional Infor mation Patient will have te sting as ordered and will follow up in 1 week for results in the office. Related to Screen for STD (sexually transmitted disease) Patient will take ci profloxacin 500 as ordered and also take one fluconazole tablet after to prevent yeast infection. Related to Acute vaginitis Patient will have pr opranolol refilled per prior orders.This note has been created using [employer] and was completed in the EHR by Pablo Lovell. Related to Essential hypertension take medication as p rescribeddiscussed lisinopril is a superior medication, at this point she feels her BP is controlled with propranolol and it also helps with her anxiety Pay attention to your weight, check your blood pressure at home, work or pharmacy about once per month would be a good idea. BP goal is less than 140/90, so if it is running above that more often than not, return to the clinic for re-evaluation. Counseled on low sodium diet, low fat, low carbohydrate diet. Did you know following the DASH diet can lower your blood pressure by 11mmHg! And for every Kg (2.2 lbs) of weight loss can lower your blood pressure by 1mmHg. Counseled on importance of medication compliance and follow up. Counseled on common side effects of medications. Go to the ER or call 911 for any chest pain. Related to Essential hypertension referral to cardiolo gy placedxray and labs ordered, too late todaydue to possibility of previous COVID infection will test for antibodies. Related to Precordial chest pain labs orderedf/u in o ne week for lab resultsinhalers refilledreturn sooner as needed. meloxicam as needed for joint pain Related to Polyarthralgia Stay off anti-hypert ensive, monitor b/p, stay well hydrated, notify for continued issues. To continue social distancing and stay at home directive for Covid 19 Pandemic. To report any flu sx., cough, fever or other, aware ER available for emergent situations. Related to Hypotension due to drugs Continue current meds, refill do ne Related to Seasonal allergic reaction Diflucan as ordered Related to V aginal amparo will treat for BV an d yeastlabs drawn todayf/u in one week for results. Your visit today was a walk-in visit intended to address a specific problem. If this is your first visit with me and you would like to follow up to address additional concerns, I highly recommend that you make an appointment. Alternatively, if you have a primary care provider, please make an appointment with them at your earliest convenience. Given that this was a walk-in visit, we may not have addressed all of your concerns. Additionally, I recommend you return for a preventative screening visit where we can discuss all the recommended screenings appropriate to your situation. Related to Bacterial vaginosis fluconazole as direc cristhian- follow up on test results Related to Vaginal discharge ICS to be startedf/u in two weeksallergen avoidance discussed Related to Cough variant asthma Be sure to complete the entire course of antibiotics as prescribed. If there are no improvements in your symptoms in the next 5-7 days return to the clinic. Related to URI with cough and congestion Use the nose spray, two puffs twice daily and the allergy pill once daily. Related to Chronic allergic rhinitis Be sure to complete the entire course of antibiotics as prescribed. If there are no improvements in your symptoms in the next 5-7 days return to the clinic. Related to URI with cough and congestion Take antibiotics as prescribed, drink plenty of fluids and rest. Use ibuprofen or tylenol for pain or fever. Return to clinic in 1 week if not feeling better. Related to Acute upper respiratory infection, unspecified Treatment Plan: Courtney ent to be seen twice per month until stable (approximately 10 to 12 visits)Home Care Discussed: (extremely important for faster and lasting relief)REST: Sleep at least 7.5 hours every night - avoid screens for the last hour of the day.EAT: Emphasize vegetables, whole grains, and fruits (avoid sugars and saturated fats)MOVE: Exercise and stretch as recommended by your primary care physician or chiropractor during your office visit.THINK: Practice nine minutes a day of quiet meditation for enhanced focus. Practice gratefulness routines for vastly improved mood and attitude.Vertebral Segments Adjusted: L5/S1, C6/7 Related to Segmental and somatic dysfunction of cervical region return tomorrow for labs, then return in 1 week for results.take medication as prescribed suicide warning: If you have any thoughts of hurting yourself or others, stop the medication immediately and seek emergency care by calling 911 or going to the nearest emergency room. Related to Chronic fatigue Be sure to complete the entire course of antibiotics as prescribed. If there are no improvements in your symptoms in the next 5-7 days return to the clinic. Related to Dysuria We will treat your t deacon but do further testing. Please return in one week to discuss the results. Your visit today was a walk-in visit intended to address a specific problem. If this is your first visit with me and you would like to follow up to address additional concerns, I highly recommend that you make an appointment. Alternatively, if you have a primary care provider, please make an appointment with them at your earliest convenience. Given that this was a walk-in visit, we may not have addressed all of your concerns. Additionally, I recommend you return for a preventative screening visit where we can discuss all the recommended screenings appropriate to your situation. Related to Vaginal discharge If your BP remains h igh without the anxiety of coming to the clinic we will have to consider placing you on blood pressure medication. Related to Elevated BP without diagnosis of hypertension We will switch your antibiotics as you had a reaction to the macrobid. We should have the results of your sureswab in the next few days. Related to Acute cystitis with hematuria Be sure to complete the entire course of antibiotics as prescribed. If there are no improvements in your symptoms in the next 5-7 days return to the clinic.please return one week after your pelvic u/s to discuss the results. Related to Dysuria Take antibiotics as prescribed, drink plenty of fluids and rest. Use ibuprofen or tylenol for pain or fever. Return to clinic in 1 week if not feeling better. Related to Tender lymph node Please complete the entire course of the abx. If there is no improvement please return to the clinic for further evaluation. Your labs look great! We will recheck your BP in the next few weeks to re-evaluate the elevated BP you have had the last two visits. Related to BV (bacterial vaginosis) We will treat your U TI, please return in 1-2 weeks to discuss your lab results. Related to Dysuria ordered fluconazole, Bactrim DS, Pyridium, urine c/s Related to Acute cystitis with hematuria Take antibiotics as prescribed, drink plenty of fluids and rest. Use ibuprofen or tylenol for pain or fever. Return to clinic in 1 week if not feeling better. Related to Cough Take antibiotics as prescribed, drink plenty of fluids and rest. Use ibuprofen or tylenol for pain or fever. Return to clinic in 1 week if not feeling better. Finish all antibiotics and do not do vigorous exercise while taking cipro. Related to Acute pyelonephritis Take the full course of antibiotics. If there is no improvement in your symptoms return to the clinic. Related to Dysuria We will do a short o curse of steroids to help with the skin symptoms and your reaction to the crab. if you develop any shortness of breath, facial swelling or the rash worsens go to the ER right away like we dicsussed. Related to Food allergic dermatitis return fasting for routine labs Related to Routine medical exam Assessments Type Assessment Date assessment Acute vaginitis assessment Screen for STD (sexually transmi tted disease) assessment Essential hypertension 23 Patient Care Teams Name Effective Dates (start - stop) Status Members No Information
--- OUTSIDE RECORDS SUMMARY | 2022-12-24 10:45 | XMS_ITS | Continuity of Care Document ---
Author Organization [facility] Address [address] [place] [address] Phone Care Team Providers Care Diversity Manager Name Role Phone Ari Allen Unavailable Unavailabl [...] Copied on Encounter OFFICE/OUTPA TIENT VISIT, [facility] [employer], [address], [address], [place] tel:[phone] [facility] std tests (chief complaint) Acute vaginitisScre en for STD (sexually transmitted disease)Essen tial hypertension 3 Moraima Chapman. [address], [place], [address], [place]. tel:[phone] Referring Provider: Etta Hernandez, [address] [place], [address] . tel:[phone] OFFICE/OUTPA TIENT VISIT [facility] [employer], [address], [place], [place], [address], [place] tel:[phone] [facility] telehealth visit (chief complaint) Left lateral ankle pain 1 Arabella Christiansen. [address] [place], [address], [place]. tel:[phone] [employer], [address], [address], [place] tel:[phone] [employer] No Information 1 Estuardo Matta. [address] [place], [address], [place]. tel:[phone] OFFICE/OUTPA TIENT VISIT, [facility] [employer] [facility], [address], [address], [place] tel:[phone] [facility] CHEST PAIN BP CHECK (chief complaint) Essential hypertensionP recordial chest painContact with and (suspected) exposure to other viral communicable diseases 1 Camille Buck. [address] [place], [address], [place]. tel:[phone] OFFICE/OUTPA TIENT VISIT [facility] [employer], [address], [address], [place] tel:[phone] [employer] tele health (chief complaint)ast hma (chief complaint)wili nt pain (chief complaint) Polyarthralgi aCough variant asthmaOther half-way (current) drug therapyInflam matory arthritisChro sally cough 0 Estuardo Calderon [address] [place], [address], [place]. tel:[phone] OFFICE/OUTPA TIENT VISIT, [facility] [employer], [address], [address], [place] tel:[phone] [facility] POSS YEAST INFECTION (chief complaint) Vaginal candidaSeason al allergic reactionHypot ension due to drugs 0 No Information OFFICE/OUTPA TIENT VISIT, [facility] [employer], [address], [address], [place] tel:[phone] [facility] poss. uti (chief complaint) Bacterial vaginosisOthe r specified bacterial agents as the cause of diseases classified elsewhereWeig ht gainHair lossOther intermodal customer service (current) drug therapy 9 Estuardo Chackon. [address] [place], [address], [place]. tel:[phone] OFFICE/OUTPA TIENT VISIT, [facility], [address], [address], [place] tel:[phone] [facility] POSSIBLE YEAST INFECTION. (chief complaint) Unprotected sexual intercourseVa ginal discharge 9 Behzad Workman. [address] [place], [address], [place]. tel:[phone] OFFICE/OUTPA TIENT VISIT, [facility], [address], [address], [place] tel:[phone] [facility] COLD SYMPTOMS (chief complaint) URI with cough and congestionCou gh variant asthmaAcute bacterial sinusitisOthe r specified bacterial agents as the cause of diseases classified elsewhere 9 Estuardo Matta. [address] [place], [address], [place]. [phone] OFFICE/OUTPA TIENT VISIT, [facility], [address], [address], [place] tel:[phone] [facility] cough (chief complaint) URI with cough and congestionChr onic allergic rhinitis 9 Estuardo Matta. [address] [place], [address], [place]. tel:[phone] OFFICE/OUTPA TIENT VISIT, [facility], [address], [address], [place] tel:[phone] [facility] Musculoskelet al pain (chief complaint)Sin us symptoms (acute) (chief complaint) Acute upper respiratory infection, unspecifiedAc ute mountain non-recurrent frontal sinusitis 9 Camille Buck. [address] [place], [address], [place]. tel:[phone] [employer], [address], [address], [place] tel:[phone] [facility] Spinal Care (chief complaint) Segmental and somatic dysfunction of cervical regionSegment al and somatic dysfunction of lumbar region 8 Sesar Bella. [address] [place], [address], [place]. tel:[phone] [employer], [address], [address], [place] tel:[phone] [facility] LABS ONLY (chief complaint) Family history of diseases of the ms sys and connective tiss 0 8 Camille Buck. [address] [place], [address], [place]. tel:[phone] OFFICE/OUTPA TIENT VISIT, [facility] [employer], [address], [address], [place] tel:[phone] [facility] RIGHT HEEL PAIN (chief complaint)Anx iety (chief complaint) Chronic fatiguePanic attacksPain of right heelHair lossPolyarthr algiaFamily history of rheumatic joint diseaseLeft foot pain 0 8 Camille Buck. [address] [place], [address], [place]. [phone] OFFICE/OUTPA TIENT VISIT, [facility] [employer], [address], [address], [place] tel:[phone] [facility] UTI (chief complaint) DysuriaDysuri a 0 8 Estuardo Matta. [address] [place], [address], [place]. tel:[phone] OFFICE/OUTPA TIENT VISIT, [facility] [employer], [address], [address], [place] tel:[phone] [facility] STD check (chief complaint)Fol low up on lab test(s) (chief complaint) Vaginal dischargeChla mydia contactElevat ed BP without diagnosis of hypertension 8 Estuardo Sigrid. [address] [place], [address], [place]. tel:[phone] OFFICE/OUTPA TIENT VISIT, [facility] [employer], [address], [address], [place] tel:[phone] [facility] UTI symptoms not getting better (chief complaint) Acute cystitis with hematuria 8 Estuardo Sigrid. [address] [place], [address], [place]. tel:[phone] OFFICE/OUTPA TIENT VISIT, [facility] [employer], [address], [address], [place] tel:[phone] [facility] UTI (chief complaint) DysuriaDysuri aVaginal dischargePelv ic pain in female 8 Estuardo Sigrid. [address] [place], [address], [place]. tel:[phone] OFFICE/OUTPA TIENT VISIT, [facility] [employer], [address], [address], [place] tel:[phone] [facility] sore throat (chief complaint) Tender lymph nodeRight ear painSore throatProduct radha cough 7 Camille Buck. [address] [place], [address], [place]. tel:[phone] OFFICE/OUTPA TIENT VISIT, [facility] [employer], [address], [address], [place] tel:[phone] [facility] results (chief complaint) BV (bacterial vaginosis)Jesusita vated BP without diagnosis of hypertensionA trophy of right kidneyRenal cyst 7 Estuardo Sigrid. [address] [place], [address], [place]. [phone] OFFICE/OUTPA TIENT VISIT, [facility], [address], [address], [place] tel:[phone] [facility] UTI (chief complaint)ref erral (chief complaint) DysuriaPelvic pain in femaleRenal cyst, rightHx gestational diabetes 7 Setuardo Sigrid. [address] [place], [address], [place]. tel:[phone] OFFICE/OUTPA TIENT VISIT, [facility], [address], [place], [place], [address], [place] tel:[phone] [facility] Burning on urination (chief complaint)Uri nary frequency (chief complaint)URI NE ODOR (chief complaint) DysuriaAcute cystitis with hematuria 7 No Information OFFICE/OUTPA TIENT VISIT, [facility], [address], [place], [place], [address], [place] tel:[phone] [facility] cough (chief complaint) CoughFever, unspecified fever cause 7 Camille Buck. [address] [place], [address], [place]. tel:[phone] OFFICE/OUTPA TIENT VISIT, [facility], [address], [place], [place], [address], [place] tel:[phone] [facility] UTI (chief complaint)pre diabetes (chief complaint)vis ion change (chief complaint) DysuriaAcute pyelonephriti sAcute cystitis with hematuriaPred iabetesDysuri aEncounter for test, result unknown 6 Camille Buck. [address] [place], [address], [place]. tel:[phone] OFFICE/OUTPA TIENT VISIT, [facility] [employer] [facility], [address], [address], [place] tel:[phone] [facility] possible uti (chief complaint) DysuriaCystit is 6 Estuardo Matta. [address] [place], [address], [place]. tel:[phone] OFFICE/OUTPA TIENT VISIT, [facility] [employer] [facility], [address], [place], [address], [place] tel:[phone] [facility] *Rash (chief complaint) Food allergic dermatitisOth bacterial agents as the cause of diseases classd elswhr 6 Estuardo Matta. [address] [place], [address], [place]. tel:[phone] OFFICE/OUTPA TIENT VISIT, [facility] [employer], [address], [address], [place] tel:[phone] [facility] annual exam (chief complaint) Encntr screen for infections w sexl mode of transmissEnco unter for screening for oth infec/parastc diseasesEncou nter for screening for human papillomaviru s (HPV)Encounte r for gynecological examination (general) (routine) with abnormal findingsEncnt r for telecommunications cable jointer exam (general) (routine) w/o abn findingsBV (bacterial vaginosis)Oth er specified bacterial agents as the cause of diseases classified elsewhereEnco unter for screening breast examinationHx of breast implants, bilateralHist ory of abdominoplast y 6 Buffy Burns. [address], [place], [address], [place]. tel:[phone] OFFICE/OUTPA TIENT VISIT, [facility] [employer], [address], [place], [place], [address], [place] tel:[phone] [facility] PAP test (chief complaint) PrediabetesHy perlipidemiaV isit for routine telecommunications cable jointer examScreening breast examinationBa cterial vaginosisBact erial infectionScre ening examination for venereal diseaseOther specified chlamydial diseasesSPECI AL SCREEN EXAM HPV 5 Buffy Burns. [address], [place], [address], [place]. tel:[phone] [employer], [address], [place], [place], [address], [place] tel:[phone] [facility] LABS ONLY (chief complaint) Dental caries, unspecified 3- 4 Buffy Burns. [address], [place], [address], [place]. tel:[phone] OFFICE/OUTPA TIENT VISIT, [facility] [employer], [address], [place], [place], [address], [place] tel:[phone] [facility] physical (chief complaint)est ablish (chief complaint) Routine medical examScreening for diabetes mellitusScree wagner for thyroid disorderScree wagner, anemia, deficiency, iron 0 4 Ross Boone. [address] [place], [address], [place]. tel:[phone] [employer], [address], [place], [place], [address], [place] tel:[phone] [facility] Dental caries, unspecified 3 Mousa Nasr. [address], [place], [address]. tel:[phone] [employer], [address], [place], [place], [address], [place] tel:[phone] [facility] Dental caries, unspecified 6 3 Mousa Nasr. [address], [place], [address]. tel:[phone] Family History Family Member Type Diagnosis Age At Onset Father Problem (finding) Payers Payer name Insurance type Covered republican ID Juan Jose carney(s) [employer] [id number] Social History Type Description Quantity Date Captured [...] verbally consented to have their visit with [facility] via Telehealth for their concern.Reason for Telehealth [...] due Goal eGFR. Due on due Goal [facility] Adult 18-64 years. Due on due [...] due Goal Tdap. Due on due Goal [facility] Adult 18-64 years. Due on due Goal Depression scree wagner. Due on due Goal Mammogram Referr al. Due on due Goal Td vaccine. Due on 19 due Goal [facility] Adult 18-64 years. Due on due Goal Tdap. Due on due Goal Influenza vaccin e. Due on due Goal Pap/HPV testing. Due on due Goal Depression scree wagner. Due on due Goal [facility] Adult 18-64 yrs. Due on due Goal Mammogram Referr al. Due on due Goal Pap/HPV testing. Due on due Goal Influenza vaccin e. Due on due Goal Td vaccine. Due on 19 due Goal [facility] Adult 18-64 yrs. Due on due Goal Depression scree wagner. Due on due Goal [facility] Adult 18-64 years. Due on due Goal Tdap. Due on due Goal Mammogram Referr al. Due on due Goal Tdap. Due on due Goal Td vaccine. Due on 19 due Goal Pap/HPV testing. Due on due Goal Influenza vaccin e. Due on due Goal Depression scree wagner. Due on due Goal [facility] Adult 18-64 years. Due on due Goal [facility] Adult 18-64 yrs. Due on due Goal Mammogram Referr al. Due on due Goal Depression scree wagner. Due on due Goal Pap/HPV testing. Due on due Goal Td vaccine. Due on 18 due Goal Influenza vaccin e. Due on due Goal Tdap. Due on due Goal [facility] Adult 18-64 years. Due on due Goal [facility] Adult 18-64 yrs. Due on due Goal Mammogram Referr al. Due on due Goal Depression scree wagner. Due on due Goal [facility] Adult 18-64 years. Due on due Goal Tdap. Due on due Goal Influenza vaccin e. Due on due Goal [facility] Adult 18-64 yrs. Due on due Goal Td vaccine. Due on 18 due Goal Pap/HPV testing. Due on due Goal Mammogram Referr al. Due on due Goal Td vaccine. Due on 18 due Goal Influenza vaccin e. Due on due Goal Depression scree wagner. Due on due Goal Pap/HPV testing. Due on due Goal [facility] Adult 18-64 years. Due on due Goal [facility] Adult 18-64 yrs. Due on due Goal Tdap. Due on due Goal Influenza vaccin e. Due on due Goal Td vaccine. Due on 18 due Goal Tdap. Due on due Goal Mammogram Referr al. Due on due Goal Pap/HPV testing. Due on due Goal Depression scree wagner. Due on due Goal [facility] Adult 18-64 years. Due on due [...] Td vaccine. Due on 18 due Goal [facility] Adult 18-64 years. Due on due [...] Amparo Vaginitis (CV)/Trichomonas vaginalis (TV), TMA (Use Preble Label Aptima Multi-test Only) (99163), Ordered on: Ordered Future Order: Lab Order Chlamydi a/Neisseria gonorrhoeae RNA, TMA ([id number]), Ordered on: Ordered Future Order: Lab Order HIV-1/2 Antigen and Antibodies, Fourth Generation, with Reflexes ([id number]), Ordered on: Ordered Future Order: Lab Order HSV 1/2 IGG, HERPESELECT TYPE SPECIFIC AB ([id number]), Ordered on: Ordered Future Order: Lab Order RPR (DX) W/REFL TITER AND CONFIRMATORY TESTING ([id number]), Ordered on: Ordered Future Order: Radiology Order XR Chest 2 Views Pa and Lateral ([id number]), Sent on: Sent Future Order: Lab Order SARS-CoV -2 Serology (COVID-19) Antibody (IgG), Immunoassay ([id number]), Ordered on: Ordered History Of Present Illness Encounter Date Complaint History Of Prese nt Illness std tests The patient erum sanz consented to have their visit with [facility] via Telehealth for their concern.Reason for Telehealth [...] [facility].Reason for Telehealth Visit: State guidelines that residents should remain at home [Home-stay order and/or Quarantine]Telehealth Platform used: [Telephone or Audio/Visual Communication]: TelephoneIs this visit type clinically appropriate for this patient? [Yes/No]: YesIs this encounter in place of a pzaw-hb-hhkj encounter? [Yes/No]: YesTotal Length of Telehealth Visit: [time spent - e.g.15 minutes]: 16 [id number] yo female presents with complain of left [...] sanz consented to have their visit with [facility] via Telehealth for their concern.Reason for Telehealth Visit: current state guidelines require patient stay at home. Telehealth Platform used: TelephoneIs this visit type clinically appropriate for this patient? YesIs this encounter in place of a obzn-ny-kubt encounter? YesTotal Length of Telehealth Visit: 15 [...] prior orders.This note has been created using [employer] and was completed in the EHR [...]
--- OUTSIDE RECORDS SUMMARY | 2022-12-24 10:45 | XMS_ITS | Continuity of Care Document ---
Author Organization [facility] Address 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 [address], [place], [address], [place]. tel:[phone] Referring Provider: Etta Hernandez, [address] [place], [address] . tel:[phone] OFFICE/OUTPA TIENT VISIT EST [facility], [address], [place], [place], [address], [place] tel:[phone] [facility] telehealth visit (chief complaint) Left lateral ankle pain 1 Arabella Christiansen. [address] [place], [address], [place]. tel:[phone] [facility], [address], [address], [place] tel:[phone] [facility] No Information 1 Estuardo Matta. [address] [place], [address], [place]. tel:[phone] OFFICE/OUTPA TIENT VISIT, [facility] [place] [facility], [address], [address], [place] tel:[phone] [facility] CHEST PAIN BP CHECK (chief complaint) Essential hypertensionP recordial chest painContact with and (suspected) exposure to other viral communicable diseases 1 Camille Buck. [address] [place], [address], [place]. tel:[phone] OFFICE/OUTPA TIENT VISIT [facility], [address], [address], [place] tel:[phone] [facility] tele health (chief complaint)ast hma (chief complaint)wili nt pain (chief complaint) Polyarthralgi aCough variant asthmaOther senior living (current) drug therapyInflam matory arthritisChro sally cough 0 Estuardo Calderon [address] [place], [address], [place]. tel:[phone] OFFICE/OUTPA TIENT VISIT, [facility], [address], [address], [place] tel:[phone] [facility] POSS YEAST INFECTION (chief complaint) Vaginal candidaSeason al allergic reactionHypot ension due to drugs 0 No Information OFFICE/OUTPA TIENT VISIT, [facility], [address], [id number], [place] tel:[phone] [facility] poss. uti (chief complaint) Bacterial vaginosisOthe r specified bacterial agents as the cause of diseases classified elsewhereWeig ht gainHair lossOther long term care phlebotomist (current) drug therapy 9 Estuardo Chackon. [address] [place], [address], [place]. tel:[phone] OFFICE/OUTPA TIENT VISIT, [facility], [facility], [address], [address], [place] tel:[phone] [facility] POSSIBLE YEAST INFECTION. (chief complaint) Unprotected sexual intercourseVa ginal discharge 9 Behzad Workman. [address] [place], [address], [place]. tel:[phone] OFFICE/OUTPA TIENT VISIT, [facility], [facility], [address], [id number], [place] tel:[phone] [facility] COLD SYMPTOMS (chief complaint) URI with cough and congestionCou gh variant asthmaAcute bacterial sinusitisOthe r specified bacterial agents as the cause of diseases classified elsewhere 9 Estuardo Matta. [address] [place], [address], [place]. [phone] OFFICE/OUTPA TIENT VISIT, [facility], [facility], [address], [id number], [place] tel:[phone] [facility] cough (chief complaint) URI with cough and congestionChr onic allergic rhinitis 9 Estuardo Matta. [address] [place], [address], [place]. tel:[phone] OFFICE/OUTPA TIENT VISIT, [facility], [facility], [address], [address], [place] tel:[phone] [facility] Musculoskelet al pain (chief complaint)Sin us symptoms (acute) (chief complaint) Acute upper respiratory infection, unspecifiedAc [place] non-recurrent frontal sinusitis 9 Camille Buck. [address] [place], [address], [place]. tel:[phone] [facility], [address], [address], [place] tel:[phone] [facility] Spinal Care (chief complaint) Segmental and somatic dysfunction of cervical regionSegment al and somatic dysfunction of lumbar region 8 Sesar Bella. [address] [place], [address], [place]. tel:[phone] [facility], [address], [address], [place] tel:[phone] [facility] LABS ONLY (chief complaint) Family history of diseases of the ms sys and connective tiss 0 8 Camille Buck. [address] [place], [address], [place]. tel:[phone] OFFICE/OUTPA TIENT VISIT, EST [facility], [address], [address], [place] tel:[phone] [facility] RIGHT HEEL PAIN (chief complaint)Anx iety (chief complaint) Chronic fatiguePanic attacksPain of right heelHair lossPolyarthr algiaFamily history of rheumatic joint diseaseLeft foot pain 0 8 Camille Buck. [address] [place], [address], [place]. tel:[phone] OFFICE/OUTPA TIENT VISIT, EST [facility], [address], [address], [place] tel:[phone] [facility] UTI (chief complaint) DysuriaDysuri a 0 8 Estuardo Matta. [address] [place], [address], [place]. tel:[phone] OFFICE/OUTPA TIENT VISIT, EST [facility], [address], [address], [place] tel:[phone] [facility] STD check (chief complaint)Fol low up on lab test(s) (chief complaint) Vaginal dischargeChla mydia contactElevat ed BP without diagnosis of hypertension 8 Estuardo Sigrid. [address] [place], [address], [place]. tel:[phone] OFFICE/OUTPA TIENT VISIT, [facility], [address], [address], [place] tel:[phone] [facility] UTI symptoms not getting better (chief complaint) Acute cystitis with hematuria 8 Estuardo Sigrid. [address] [place], [address], [place]. tel:[phone] OFFICE/OUTPA TIENT VISIT, [facility], [address], [id number], [place] tel:[phone] [facility] UTI (chief complaint) DysuriaDysuri aVaginal dischargePelv ic pain in female 8 Estuardo Sigrid. [address] [place], [address], [place]. tel:[phone] OFFICE/OUTPA TIENT VISIT, [facility], [address], [address], [place] tel:[phone] [facility] sore throat (chief complaint) Tender lymph nodeRight ear painSore throatProduct radha cough 7 Camille Buck. [address] [place], [address], [place]. tel:[phone] OFFICE/OUTPA TIENT VISIT, [facility], [address], [id number], [place] tel:[phone] [facility] results (chief complaint) BV (bacterial vaginosis)Jesusita vated BP without diagnosis of hypertensionA trophy of right kidneyRenal cyst 7 Estuardo Sigrid. [address] [place], [address], [place]. [phone] OFFICE/OUTPA TIENT VISIT, [facility], [facility], [address], [address], [place] tel:[phone] [facility] UTI (chief complaint)ref erral (chief complaint) DysuriaPelvic pain in femaleRenal cyst, rightHx gestational diabetes 7 Estuardo Sigrid. [address] [place], [address], [place]. tel:[phone] OFFICE/OUTPA TIENT VISIT, [facility], [facility], [address], [place], [place], [address], [place] tel:[phone] [facility] Burning on urination (chief complaint)Uri nary frequency (chief complaint)URI NE ODOR (chief complaint) DysuriaAcute cystitis with hematuria 7 No Information OFFICE/OUTPA TIENT VISIT, [facility], [facility], [address], [place], [place], [address], [place] tel:[phone] [facility] cough (chief complaint) CoughFever, unspecified fever cause 7 Camille Buck. [address] [place], [address], [place]. tel:[phone] OFFICE/OUTPA TIENT VISIT, [facility], [facility], [address], [place], [place], [address], [place] tel:[phone] [facility] UTI (chief complaint)pre diabetes (chief complaint)vis ion change (chief complaint) DysuriaAcute pyelonephriti sAcute cystitis with hematuriaPred iabetesDysuri aEncounter for test, result unknown 6 Camille Buck. [address] [place], [address], [place]. tel:[phone] OFFICE/OUTPA TIENT VISIT, [facility] [place] [facility], [address], [place], [address], [place] tel:[phone] [facility] possible uti (chief complaint) DysuriaCystit is 6 Estuardo Matta. [address] [place], [address], [place]. tel:[phone] OFFICE/OUTPA TIENT VISIT, RUST [facility], [address], [place], [address], [place] tel:[phone] [facility] *Rash (chief complaint) Food allergic dermatitisOth bacterial agents as the cause of diseases classd elswhr 6 Estuardo Matta. [address] [place], [address], [place]. tel:[phone] OFFICE/OUTPA TIENT VISIT, [facility], [address], [address], [place] tel:[phone] [facility] annual exam (chief complaint) Encntr screen for infections w sexl mode of transmissEnco unter for screening for oth infec/parastc diseasesEncou nter for screening for human papillomaviru s (HPV)Encounte r for gynecological examination (general) (routine) with abnormal findingsEncnt r for physical security engineer exam (general) (routine) w/o abn findingsBV (bacterial vaginosis)Oth er specified bacterial agents as the cause of diseases classified elsewhereEnco unter for screening breast examinationHx of breast implants, bilateralHist ory of abdominoplast y 6 Buffy Burns. [address], [place], [address], [place]. tel:[phone] OFFICE/OUTPA TIENT VISIT, [facility], [address], [place], [place], [address], [place] tel:[phone] [facility] PAP test (chief complaint) PrediabetesHy perlipidemiaV isit for routine physical security engineer examScreening breast examinationBa cterial vaginosisBact erial infectionScre ening examination for venereal diseaseOther specified chlamydial diseasesSPECI AL SCREEN EXAM HPV 5 Buffy Burns. [address], [place], [address], [place]. tel:[phone] [facility], [address], [place], [address], [place] tel:[phone] [facility] LABS ONLY (chief complaint) Dental caries, unspecified 3- 4 Buffy Burns. [address], [place], [address], [place]. tel:[phone] OFFICE/OUTPA TIENT VISIT, NEW [facility], [address], [place], [address], [place] tel:[phone] [facility] physical (chief complaint)est ablish (chief complaint) Routine medical examScreening for diabetes mellitusScree wagner for thyroid disorderScree wagner, anemia, deficiency, iron 0 4 Ross Boone. [address] [place], [address], [place]. tel:[phone] [facility], [address], [place], [place], [address], [place] tel:[phone] [facility] Dental caries, unspecified 3 Mousa Nasr. [address], [place], [address]. [phone] [facility], [address], [place], [place], [address], [place] tel:[phone] [facility] Dental caries, unspecified 6 3 Mousa Nasr. [address], [place], [address]. tel:[phone] Family History Family Member Type Diagnosis Age At Onset Father Problem (finding) Payers Payer name Insurance type Covered republican ID Juan Jose carney(s) [employer] [id number] Social History Type Description Quantity Date Captured [...] to have their visit with [facility] via Telehealth for their concern.Reason for Telehealth [...] Amparo Vaginitis (CV)/Trichomonas vaginalis (TV), TMA (Use [place] Label Aptima Multi-test Only) (78991), Ordered on: Ordered Future Order: Lab Order Chlamydi a/Neisseria gonorrhoeae RNA, TMA (81524), Ordered on: Ordered Future Order: Lab Order HIV-1/2 Antigen and Antibodies, Fourth Generation, with Reflexes (57691), Ordered on: Ordered Future Order: Lab Order HSV 1/2 IGG, HERPESELECT TYPE SPECIFIC AB ([id number]), Ordered on: Ordered Future Order: Lab Order RPR (DX) W/REFL TITER AND CONFIRMATORY TESTING ([id number]), Ordered on: Ordered Future Order: Radiology Order XR Chest 2 Views Pa and Lateral ([id number]), Sent on: Sent Future Order: Lab Order SARS-CoV -2 Serology (COVID-19) Antibody (IgG), Immunoassay ([id number]), Ordered on: Ordered History Of Present Illness Encounter Date Complaint History Of Prese nt Illness std tests The patient erum sanz consented to have their visit with [facility] via Telehealth for their concern.Reason for Telehealth [...] verbally [facility] their [facility].Reason for Telehealth Visit: State guidelines that residents should remain at home [Home-stay order and/or Quarantine]Telehealth Platform used: [Telephone or Audio/Visual Communication]: TelephoneIs this visit type clinically appropriate for this patient? [Yes/No]: YesIs this encounter in place of a adwl-sl-qmbk encounter? [Yes/No]: YesTotal Length of Telehealth Visit: [time spent - e.g.15 minutes]: [id number] yo female presents with complain of left [...] to have their visit with [facility] via Telehealth for their concern.Reason for Telehealth Visit: current state guidelines require patient stay at home. Telehealth Platform used: TelephoneIs this visit type clinically appropriate for this patient? YesIs this encounter in place of a kjne-ps-gmun encounter? YesTotal Length of Telehealth Visit: 15 [...] prior orders.This note has been created using [employer] and was completed in the EHR [...]
--- OUTSIDE RECORDS SUMMARY | 2022-12-24 10:45 | XMS_ITS | Continuity of Care Document ---
[facility] Organization [facility] Address [address] [place] [address] Phone Care Team Providers Care Sales Relationship Manager Name Role Phone Ari Allen Unavailable [...] Copied on Encounter OFFICE/OUTPA TIENT VISIT, EST [facility], [address], [id number], [place] tel:[phone] [facility] std tests (chief complaint) Acute vaginitisScre en for STD (sexually transmitted disease)Essen tial hypertension 3 Moraima Chapman. [address], [place], [id number], [place]. tel:[phone] Referring Provider: Etta Hernandez, [address] [place], [address] . tel:[phone] OFFICE/OUTPA TIENT VISIT EST [facility], [address], [place], [place], [address], [place] tel:[phone] [facility] telehealth visit (chief complaint) Left lateral ankle pain 1 Arabella Christiansen. [address] [place], [address], [place]. tel:[phone] [facility], [address], [id number], [place] tel:[phone] [facility] No Information 1 Estuardo Matta. [address] [place], [address], [place]. tel:[phone] OFFICE/OUTPA TIENT VISIT, [facility], [address], [address], [place] tel:[phone] [facility] CHEST PAIN BP CHECK (chief complaint) Essential hypertensionP recordial chest painContact with and (suspected) exposure to other viral communicable diseases 1 Camille Buck. [address] [place], [address], [place]. tel:[phone] OFFICE/OUTPA TIENT VISIT [facility], [address], [id number], [place] tel:[phone] [facility] tele health (chief complaint)ast hma (chief complaint)wili nt pain (chief complaint) Polyarthralgi aCough variant asthmaOther skilled nursing (current) drug therapyInflam matory arthritisChro sally cough 0 Estuardo Calderon [address] [place], [address], [place]. tel:[phone] OFFICE/OUTPA TIENT VISIT, [facility], [address], [id number], [place] tel:[phone] [facility] POSS YEAST INFECTION (chief complaint) Vaginal candidaSeason al allergic reactionHypot ension due to drugs 0 No Information OFFICE/OUTPA TIENT VISIT, [facility], [address], [id number], [place] tel:[phone] [facility] poss. uti (chief complaint) Bacterial vaginosisOthe r specified bacterial agents as the cause of diseases classified elsewhereWeig ht gainHair lossOther long term acute care registered nurse (current) drug therapy 9 Estuardo Chackon. [address] [place], [address], [place]. tel:[phone] OFFICE/OUTPA TIENT VISIT, [facility], [address], [address], [place] tel:[phone] [facility] POSSIBLE YEAST INFECTION. (chief complaint) Unprotected sexual intercourseVa ginal discharge 9 Behzad Workman. [address] [place], [address], [place]. tel:[phone] OFFICE/OUTPA TIENT VISIT, [facility], [address], [id number], [place] tel:[phone] [facility] COLD SYMPTOMS (chief complaint) URI with cough and congestionCou gh variant asthmaAcute bacterial sinusitisOthe r specified bacterial agents as the cause of diseases classified elsewhere 9 Estuardo Matta. [address] [place], [address], [place]. [phone] OFFICE/OUTPA TIENT VISIT, [facility], [address], [id number], [place] tel:[phone] [facility] cough (chief complaint) URI with cough and congestionChr onic allergic rhinitis 9 Estuardo Matta. [address] [place], [address], [place]. tel:[phone] OFFICE/OUTPA TIENT VISIT, [facility], [address], [address], [place] tel:[phone] [facility] Musculoskelet al pain (chief complaint)Sin us symptoms (acute) (chief complaint) Acute upper respiratory infection, unspecifiedAc lac vieux non-recurrent frontal sinusitis 9 Camille Buck. [address] [place], [address], [place]. tel:[phone] [facility], [address], [id number], [place] tel:[phone] [facility] Spinal Care (chief complaint) Segmental and somatic dysfunction of cervical regionSegment al and somatic dysfunction of lumbar region 8 Sesar Bella. [address] [place], [address], [place]. tel:[phone] [facility], [address], [id number], [place] tel:[phone] [facility] LABS ONLY (chief complaint) Family history of diseases of the ms sys and connective tiss 0 8 Camille Buck. [address] [place], [address], [place]. tel:[phone] OFFICE/OUTPA TIENT VISIT, EST [facility], [address], [address], [place] tel:[phone] [facility] RIGHT HEEL PAIN (chief complaint)Anx iety (chief complaint) Chronic fatiguePanic attacksPain of right heelHair lossPolyarthr algiaFamily history of rheumatic joint diseaseLeft foot pain 0 8 Camille Buck. [address] [place], [address], [place]. tel:[phone] OFFICE/OUTPA TIENT VISIT, EST [facility], [address], [address], [place] tel:[phone] [facility] UTI (chief complaint) DysuriaDysuri a 0 8 Estuardo Matta. [address] [place], [address], [place]. tel:[phone] OFFICE/OUTPA TIENT VISIT, EST [facility], [address], [address], [place] tel:[phone] [facility] STD check (chief complaint)Fol low up on lab test(s) (chief complaint) Vaginal dischargeChla mydia contactElevat ed BP without diagnosis of hypertension 8 Estuardo Sigrid. [address] [place], [address], [place]. tel:[phone] OFFICE/OUTPA TIENT VISIT, [facility], [address], [place], [address], [place] tel:[phone] [facility] UTI symptoms not getting better (chief complaint) Acute cystitis with hematuria 8 Estuardo Sigrid. [address] [place], [address], [place]. tel:[phone] OFFICE/OUTPA TIENT VISIT, [facility] [employer], [address], [id number], [place] tel:[phone] [facility] UTI (chief complaint) DysuriaDysuri aVaginal dischargePelv ic pain in female 8 Estuardo Sigrid. [address] [place], [address], [place]. tel:[phone] OFFICE/OUTPA TIENT VISIT, [facility] [employer], [address], [address], [place] tel:[phone] [facility] sore throat (chief complaint) Tender lymph nodeRight ear painSore throatProduct radha cough 7 Camille Buck. [address] [place], [address], [place]. tel:[phone] OFFICE/OUTPA TIENT VISIT, [facility], [address], [id number], [place] tel:[phone] [facility] results (chief complaint) BV (bacterial vaginosis)Jesusita vated BP without diagnosis of hypertensionA trophy of right kidneyRenal cyst 7 Estuardo Sigrid. [address] [place], [address], [place]. [phone] OFFICE/OUTPA TIENT VISIT, [facility], [address], [id number], [place] tel:[phone] [facility] UTI (chief complaint)ref erral (chief complaint) DysuriaPelvic pain in femaleRenal cyst, rightHx gestational diabetes 7 Estuardo Sigrid. [address] [place], [address], [place]. tel:[phone] OFFICE/OUTPA TIENT VISIT, [facility], [address], [place], [place], [address], [place] tel:[phone] [facility] Burning on urination (chief complaint)Uri nary frequency (chief complaint)URI NE ODOR (chief complaint) DysuriaAcute cystitis with hematuria 7 No Information OFFICE/OUTPA TIENT VISIT, [facility], [address], [place], [place], [address], [place] tel:[phone] [facility] cough (chief complaint) CoughFever, unspecified fever cause 7 Camille Buck. [address] [place], [address], [place]. tel:[phone] OFFICE/OUTPA TIENT VISIT, [facility], [address], [place], [place], [address], [place] tel:[phone] [facility] UTI (chief complaint)pre diabetes (chief complaint)vis ion change (chief complaint) DysuriaAcute pyelonephriti sAcute cystitis with hematuriaPred iabetesDysuri aEncounter for test, result unknown 6 Camille Buck. [address] [place], [address], [place]. tel:[phone] OFFICE/OUTPA TIENT VISIT, [facility], [address], [address], [place] tel:[phone] [facility] possible uti (chief complaint) DysuriaCystit is 6 Estuardo Matta. [address] [place], [address], [place]. tel:[phone] OFFICE/OUTPA TIENT VISIT, [facility], [address], [address], [place] tel:[phone] [facility] *Rash (chief complaint) Food allergic dermatitisOth bacterial agents as the cause of diseases classd elswhr 6 Estuardo Matta. [address] [place], [address], [place]. tel:[phone] OFFICE/OUTPA TIENT VISIT, [facility] [employer], [address], [address], [place] tel:[phone] [facility] annual exam (chief complaint) Encntr screen for infections w sexl mode of transmissEnco unter for screening for oth infec/parastc diseasesEncou nter for screening for human papillomaviru s (HPV)Encounte r for gynecological examination (general) (routine) with abnormal findingsEncnt r for gynecologist exam (general) (routine) w/o abn findingsBV (bacterial vaginosis)Oth er specified bacterial agents as the cause of diseases classified elsewhereEnco unter for screening breast examinationHx of breast implants, bilateralHist ory of abdominoplast y 6 Buffy Burns. [address], [place], [address], [place]. tel:[phone] OFFICE/OUTPA TIENT VISIT, [facility], [address], [place], [place], [address], [place] tel:[phone] [facility] PAP test (chief complaint) PrediabetesHy perlipidemiaV isit for routine gynecologist examScreening breast examinationBa cterial vaginosisBact erial infectionScre ening examination for venereal diseaseOther specified chlamydial diseasesSPECI AL SCREEN EXAM HPV 5 Buffy Burns. [address], [place], [address], [place]. tel:[phone] [facility], [address], [place], [place], [address], [place] tel:[phone] [facility] LABS ONLY (chief complaint) Dental caries, unspecified 3- 4 Buffy Burns. [address], [place], [address], [place]. tel:[phone] OFFICE/OUTPA TIENT VISIT, [facility], [address], [place], [place], [address], [place] tel:[phone] [facility] physical (chief complaint)est ablish (chief complaint) Routine medical examScreening for diabetes mellitusScree wagner for thyroid disorderScree wagner, anemia, deficiency, iron 0 4 Ross Boone. [address] [place], [address], [place]. tel:[phone] [facility], [address], [place], [place], [address], [place] tel:[phone] [facility] Dental caries, unspecified 3 Mousa Nasr. [address], [place], [address]. tel:[phone] [facility], [address], [place], [place], [address], [place] tel:[phone] [facility] Dental caries, unspecified 6 3 Mousa Nasr. [address], [place], [address]. tel:[phone] Family History Family Member Type Diagnosis Age At Onset Father Problem (finding) Payers Payer name Insurance type Covered alliance party ID Juan Jose carney(s) [employer] Private Insurance [id number] Social History Type Description Quantity Date Captured [...] consented to have their visit with [facility] via Telehealth for their concern.Reason for Telehealth [...] due Goal eGFR. Due on due Goal [facility] Adult 18-64 years. Due on due Goal [...] due Goal Tdap. Due on due Goal [facility] Adult 18-64 years. Due on due Goal Depression scree wagner. Due on due Goal Mammogram Referr al. Due on due Goal Td vaccine. Due on 19 due Goal [facility] Adult 18-64 years. Due on due Goal Tdap. Due on due Goal Influenza vaccin e. Due on due Goal Pap/HPV testing. Due on due Goal Depression scree wagner. Due on due Goal [facility] Adult 18-64 yrs. Due on due Goal Mammogram Referr al. Due on due Goal Pap/HPV testing. Due on due Goal Influenza vaccin e. Due on due Goal Td vaccine. Due on 19 due Goal [facility] Adult 18-64 yrs. Due on due Goal Depression scree wagner. Due on due Goal [facility] Adult 18-64 years. Due on due Goal Tdap. Due on due Goal Mammogram Referr al. Due on due Goal Tdap. Due on due Goal Td vaccine. Due on 19 due Goal Pap/HPV testing. Due on due Goal Influenza vaccin e. Due on due Goal Depression scree wagner. Due on due Goal [facility] Adult 18-64 years. Due on due Goal [facility] Adult 18-64 yrs. Due on due Goal Mammogram Referr al. Due on due Goal Depression scree wagner. Due on due Goal Pap/HPV testing. Due on due Goal Td vaccine. Due on 18 due Goal Influenza vaccin e. Due on due Goal Tdap. Due on due Goal [facility] Adult 18-64 years. Due on due Goal [facility] Adult 18-64 yrs. Due on due Goal Mammogram Referr al. Due on due Goal Depression scree wagner. Due on due Goal [facility] Adult 18-64 years. Due on due Goal Tdap. Due on due Goal Influenza vaccin e. Due on due Goal [facility] Adult 18-64 yrs. Due on due Goal Td vaccine. Due on 18 due Goal Pap/HPV testing. Due on due Goal Mammogram Referr al. Due on due Goal Td vaccine. Due on 18 due Goal Influenza vaccin e. Due on due Goal Depression scree wagner. Due on due Goal Pap/HPV testing. Due on due Goal [facility] Adult 18-64 years. Due on due Goal [facility] Adult 18-64 yrs. Due on due Goal Tdap. Due on due Goal Influenza vaccin e. Due on due Goal Td vaccine. Due on 18 due Goal Tdap. Due on due Goal Mammogram Referr al. Due on due Goal Pap/HPV testing. Due on due Goal Depression scree wagner. Due on due Goal [facility] Adult 18-64 years. Due on due Goal [...] Td vaccine. Due on 18 due Goal [facility] Adult 18-64 years. Due on due Goal [...] Amparo Vaginitis (CV)/Trichomonas vaginalis (TV), TMA (Use [place] Label Aptima Multi-test Only) (47047), Ordered on: Ordered Future Order: Lab Order Chlamydi a/Neisseria gonorrhoeae RNA, TMA ([id number]), Ordered on: Ordered Future Order: Lab Order HIV-1/2 Antigen and Antibodies, Fourth Generation, with Reflexes ([id number]), Ordered on: Ordered Future Order: Lab Order HSV 1/2 IGG, HERPESELECT TYPE SPECIFIC AB ([id number]), Ordered on: Ordered Future Order: Lab Order RPR (DX) W/REFL TITER AND CONFIRMATORY TESTING ([id number]), Ordered on: Ordered Future Order: Radiology Order XR Chest 2 Views Pa and Lateral ([id number]), Sent on: Sent Future Order: Lab Order SARS-CoV -2 Serology (COVID-19) Antibody (IgG), Immunoassay ([id number]), Ordered on: Ordered History Of Present Illness Encounter Date Complaint History Of Prese nt Illness std tests The patient erum sanz consented to have their visit with [facility] via Telehealth for their concern.Reason for Telehealth [...] verb[facility] their concern.Reason for Telehealth Visit: State guidelines that residents should remain at home [Home-stay order and/or Quarantine]Telehealth Platform used: [Telephone or Audio/Visual Communication]: TelephoneIs this visit type clinically appropriate for this patient? [Yes/No]: YesIs this encounter in place of a gadi-ct-vgxe encounter? [Yes/No]: YesTotal Length of Telehealth Visit: [time spent - e.g.15 minutes]: 16 tiysmvm34 yo female presents with complain of left [...] consented to have their visit with [facility] via Telehealth for their concern.Reason for Telehealth Visit: current state guidelines require patient stay at home. Telehealth Platform used: TelephoneIs this visit type clinically appropriate for this patient? YesIs this encounter in place of a ruyv-nq-ktlk encounter? YesTotal Length of Telehealth Visit: 15 [...] prior orders.This note has been created using [employer] and was completed in the EHR [...]
--- OUTSIDE RECORDS SUMMARY | 2022-12-24 10:45 | XMS_ITS | Continuity of Care Document ---
Author Organization [facility] Address [address] [place] [address] Phone Care Team Providers Care [employer] Licensee Name Role Phone Ari Allen Unavailable Unavailabl [...] Copied on Encounter OFFICE/OUTPA TIENT VISIT, EST [employer], [address], [address], [place] tel:[phone] [facility] std tests (chief complaint) Acute vaginitisScre en for STD (sexually transmitted disease)Essen tial hypertension 3 Moraima Chapman. [address], [place], [address], [place]. tel:[phone] Referring Provider: Etta Hernandez, [address] [place], [address] . tel:[phone] OFFICE/OUTPA TIENT VISIT EST [employer], [address], [place], [place], [address], [place] tel:[phone] [facility] telehealth visit (chief complaint) Left lateral ankle pain 1 Arabella Christiansen. [address] [place], [address], [place]. tel:[phone] [employer], [address], [address], [place] tel:[phone] [employer] No Information 1 Estuardo Matta. [address] [place], [address], [place]. tel:[phone] OFFICE/OUTPA TIENT VISIT, [facility] [employer] [facility], [address], [place], [address], [place] tel:[phone] [facility] CHEST PAIN BP CHECK (chief complaint) Essential hypertensionP recordial chest painContact with and (suspected) exposure to other viral communicable diseases 1 Camille Buck. [address] [place], [address], [place]. tel:[phone] OFFICE/OUTPA TIENT VISIT [facility] [employer], [address], [address], [place] tel:[phone] [employer] tele health (chief complaint)ast hma (chief complaint)wili nt pain (chief complaint) Polyarthralgi aCough variant asthmaOther custodial (current) drug therapyInflam matory arthritisChro sally cough 0 Estuardo Calderon [address] [place], [address], [place]. tel:[phone] OFFICE/OUTPA TIENT VISIT, [facility] [employer], [address], [address], [place] tel:[phone] [facility] POSS YEAST INFECTION (chief complaint) Vaginal candidaSeason al allergic reactionHypot ension due to drugs 0 No Information OFFICE/OUTPA TIENT VISIT, [facility] [employer], [address], [id number], [place] tel:[phone] [facility] poss. uti (chief complaint) Bacterial vaginosisOthe r specified bacterial agents as the cause of diseases classified elsewhereWeig ht gainHair lossOther machine stonecutter (current) drug therapy 9 Estuardo Chackon. [address] [place], [address], [place]. tel:[phone] OFFICE/OUTPA TIENT VISIT, [facility], [address], [address], [place] tel:[phone] [facility] POSSIBLE YEAST INFECTION. (chief complaint) Unprotected sexual intercourseVa ginal discharge 9 Behzad Workman. [address] [place], [address], [place]. tel:[phone] OFFICE/OUTPA TIENT VISIT, [facility], [address], [id number], [place] tel:[phone] [facility] COLD SYMPTOMS (chief complaint) URI with cough and congestionCou gh variant asthmaAcute bacterial sinusitisOthe r specified bacterial agents as the cause of diseases classified elsewhere 9 Estuardo Matta. [address] [place], [address], [place]. [phone] OFFICE/OUTPA TIENT VISIT, [facility], [address], [address], [place] tel:[phone] [facility] cough (chief complaint) URI with cough and congestionChr onic allergic rhinitis 9 Estuardo Matta. [address] [place], [address], [place]. tel:[phone] OFFICE/OUTPA TIENT VISIT, [facility], [address], [address], [place] tel:[phone] [facility] Musculoskelet al pain (chief complaint)Sin us symptoms (acute) (chief complaint) Acute upper respiratory infection, unspecifiedAc [place] non-recurrent frontal sinusitis 9 Camille Buck. [address] [place], [address], [place]. tel:[phone] [employer], [address], [address], [place] tel:[phone] [facility] Spinal Care (chief complaint) Segmental and somatic dysfunction of cervical regionSegment al and somatic dysfunction of lumbar region 8 Sesar Bella. [address] [place], [address], [place]. tel:[phone] [employer], [address], [place], [address], [place] tel:[phone] [facility] LABS ONLY (chief complaint) Family history of diseases of the ms sys and connective tiss 0 8 Camille Buck. [address] [place], [address], [place]. tel:[phone] OFFICE/OUTPA TIENT VISIT, EST [employer], [address], [address], [place] tel:[phone] [facility] RIGHT HEEL PAIN (chief complaint)Anx iety (chief complaint) Chronic fatiguePanic attacksPain of right heelHair lossPolyarthr algiaFamily history of rheumatic joint diseaseLeft foot pain 0 8 Camille Buck. [address] [place], [address], [place]. tel:[phone] OFFICE/OUTPA TIENT VISIT, EST [employer], [address], [address], [place] tel:[phone] [facility] UTI (chief complaint) DysuriaDysuri a 0 8 Estuardo Matta. [address] [place], [address], [place]. tel:[phone] OFFICE/OUTPA TIENT VISIT, EST [employer], [address], [address], [place] tel:[phone] [facility] STD check (chief complaint)Fol low up on lab test(s) (chief complaint) Vaginal dischargeChla mydia contactElevat ed BP without diagnosis of hypertension 8 Estuardo Sigrid. [address] [place], [address], [place]. tel:[phone] OFFICE/OUTPA TIENT VISIT, [facility] [employer], [address], [address], [place] tel:[phone] [facility] UTI symptoms not getting better (chief complaint) Acute cystitis with hematuria 8 Estuardo Sigrid. [address] [place], [address], [place]. tel:[phone] OFFICE/OUTPA TIENT VISIT, [facility] [employer], [address], [address], [place] tel:[phone] [facility] UTI (chief complaint) DysuriaDysuri aVaginal dischargePelv ic pain in female 8 Estuardo Sigrid. [address] [place], [address], [place]. tel:[phone] OFFICE/OUTPA TIENT VISIT, [facility] [employer], [address], [address], [place] tel:[phone] [facility] sore throat (chief complaint) Tender lymph nodeRight ear painSore throatProduct radha cough 7 Camille Buck. [address] [place], [address], [place]. tel:[phone] OFFICE/OUTPA TIENT VISIT, [facility] [employer], [address], [address], [place] tel:[phone] [facility] results (chief complaint) BV (bacterial vaginosis)Jesusita vated BP without diagnosis of hypertensionA trophy of right kidneyRenal cyst 7 Estuardo Sigrid. [address] [place], [address], [place]. [phone] OFFICE/OUTPA TIENT VISIT, [facility], [address], [address], [place] tel:[phone] [facility] UTI (chief complaint)ref erral (chief complaint) DysuriaPelvic pain in femaleRenal cyst, rightHx gestational diabetes 7 Estuardo Sigrid. [address] [place], [address], [place]. tel:[phone] OFFICE/OUTPA TIENT VISIT, [facility], [address], [place], [place], [address], [place] tel:[phone] [facility] Burning on urination (chief complaint)Uri nary frequency (chief complaint)URI NE ODOR (chief complaint) DysuriaAcute cystitis with hematuria 7 No Information OFFICE/OUTPA TIENT VISIT, [facility], [address], [place], [place], [address], [place] tel:[phone] [facility] cough (chief complaint) CoughFever, unspecified fever cause 7 Camille Buck. [address] [place], [address], [place]. tel:[phone] OFFICE/OUTPA TIENT VISIT, [facility], [address], [place], [place], [address], [place] tel:[phone] [facility] UTI (chief complaint)pre diabetes (chief complaint)vis ion change (chief complaint) DysuriaAcute pyelonephriti sAcute cystitis with hematuriaPred iabetesDysuri aEncounter for test, result unknown 6 Camille Buck. [address] [place], [address], [place]. tel:[phone] OFFICE/OUTPA TIENT VISIT, [facility] [employer] [facility], [address], [address], [place] tel:[phone] [facility] possible uti (chief complaint) DysuriaCystit is 6 Estuardo Matta. [address] [place], [address], [place]. tel:[phone] OFFICE/OUTPA TIENT VISIT, [facility] [employer] [facility], [address], [place], [address], [place] tel:[phone] [facility] *Rash (chief complaint) Food allergic dermatitisOth bacterial agents as the cause of diseases classd elswhr 6 Estuardo Matta. [address] [place], [address], [place]. tel:[phone] OFFICE/OUTPA TIENT VISIT, [facility] [employer], [address], [address], [place] tel:[phone] [facility] annual exam (chief complaint) Encntr screen for infections w sexl mode of transmissEnco unter for screening for oth infec/parastc diseasesEncou nter for screening for human papillomaviru s (HPV)Encounte r for gynecological examination (general) (routine) with abnormal findingsEncnt r for policeman exam (general) (routine) w/o abn findingsBV (bacterial vaginosis)Oth er specified bacterial agents as the cause of diseases classified elsewhereEnco unter for screening breast examinationHx of breast implants, bilateralHist ory of abdominoplast y 6 Buffy Burns. [address], [place], [address], [place]. tel:[phone] OFFICE/OUTPA TIENT VISIT, [facility] [employer], [address], [place], [place], [address], [place] tel:[phone] [facility] PAP test (chief complaint) PrediabetesHy perlipidemiaV isit for routine policeman examScreening breast examinationBa cterial vaginosisBact erial infectionScre ening examination for venereal diseaseOther specified chlamydial diseasesSPECI AL SCREEN EXAM HPV 5 Buffy Burns. [address], [place], [address], [place]. tel:[phone] [employer], [address], [place], [place], [address], [place] tel:[phone] [facility] LABS ONLY (chief complaint) Dental caries, unspecified 3- 4 Buffy Burns. [address], [place], [address], [place]. tel:[phone] OFFICE/OUTPA TIENT VISIT, NEW [employer], [address], [place], [place], [address], [place] tel:[phone] [facility] physical (chief complaint)est ablish (chief complaint) Routine medical examScreening for diabetes mellitusScree wagner for thyroid disorderScree wagner, anemia, deficiency, iron 0 4 Ross Boone. [address] [place], [address], [place]. tel:[phone] [employer], [address], [place], [place], [address], [place] tel:[phone] [facility] Dental caries, unspecified 3 Mousa Nasr. [address], [place], [address]. [phone] [employer], [address], [place], [place], [address], [place] tel:[phone] [facility] Dental caries, unspecified 6 3 Mousa Nasr. [address], [place], [address]. tel:[phone] Family History Family Member Type Diagnosis Age At Onset Father Problem (finding) Payers Payer name Insurance type Covered constitution party ID Juan Jose carney(s) [employer] [id number] Social History Type Description Quantity Date Captured [...] verbally consented to have their visit with [facility] via Telehealth for their concern.Reason for Telehealth [...] due Goal eGFR. Due on due Goal [facility] Adult 18-64 years. Due on due [...] due Goal Tdap. Due on due Goal [facility] Adult 18-64 years. Due on due Goal Depression scree wagner. Due on due Goal Mammogram Referr al. Due on due Goal Td vaccine. Due on 19 due Goal [facility] Adult 18-64 years. Due on due Goal Tdap. Due on due Goal Influenza vaccin e. Due on due Goal Pap/HPV testing. Due on due Goal Depression scree wagner. Due on due Goal [facility] Adult 18-64 yrs. Due on due Goal Mammogram Referr al. Due on due Goal Pap/HPV testing. Due on due Goal Influenza vaccin e. Due on due Goal Td vaccine. Due on 19 due Goal [facility] Adult 18-64 yrs. Due on due Goal Depression scree wagner. Due on due Goal [facility] Adult 18-64 years. Due on due Goal Tdap. Due on due Goal Mammogram Referr al. Due on due Goal Tdap. Due on due Goal Td vaccine. Due on 19 due Goal Pap/HPV testing. Due on due Goal Influenza vaccin e. Due on due Goal Depression scree wagner. Due on due Goal [facility] Adult 18-64 years. Due on due Goal [facility] Adult 18-64 yrs. Due on due Goal Mammogram Referr al. Due on due Goal Depression scree wagner. Due on due Goal Pap/HPV testing. Due on due Goal Td vaccine. Due on 18 due Goal Influenza vaccin e. Due on due Goal Tdap. Due on due Goal [facility] Adult 18-64 years. Due on due Goal [facility] Adult 18-64 yrs. Due on due Goal Mammogram Referr al. Due on due Goal Depression scree wagner. Due on due Goal [facility] Adult 18-64 years. Due on due Goal Tdap. Due on due Goal Influenza vaccin e. Due on due Goal [facility] Adult 18-64 yrs. Due on due Goal Td vaccine. Due on 18 due Goal Pap/HPV testing. Due on due Goal Mammogram Referr al. Due on due Goal Td vaccine. Due on 18 due Goal Influenza vaccin e. Due on due Goal Depression scree wagner. Due on due Goal Pap/HPV testing. Due on due Goal [facility] Adult 18-64 years. Due on due Goal [facility] Adult 18-64 yrs. Due on due Goal Tdap. Due on due Goal Influenza vaccin e. Due on due Goal Td vaccine. Due on 18 due Goal Tdap. Due on due Goal Mammogram Referr al. Due on due Goal Pap/HPV testing. Due on due Goal Depression scree wagner. Due on due Goal [facility] Adult 18-64 years. Due on due [...] Td vaccine. Due on 18 due Goal [facility] Adult 18-64 years. Due on due [...] Amparo Vaginitis (CV)/Trichomonas vaginalis (TV), TMA (Use [place] Label Aptima Multi-test Only) (96323), Ordered on: Ordered Future Order: Lab Order Chlamydi a/Neisseria gonorrhoeae RNA, TMA ([id number]), Ordered on: Ordered Future Order: Lab Order HIV-1/2 Antigen and Antibodies, Fourth Generation, with Reflexes ([id number]), Ordered on: Ordered Future Order: Lab Order HSV 1/2 IGG, HERPESELECT TYPE SPECIFIC AB ([id number]), Ordered on: Ordered Future Order: Lab Order RPR (DX) W/REFL TITER AND CONFIRMATORY TESTING ([id number]), Ordered on: Ordered Future Order: Radiology Order XR Chest 2 Views Pa and Lateral ([id number]), Sent on: Sent Future Order: Lab Order SARS-CoV -2 Serology (COVID-19) Antibody (IgG), Immunoassay ([id number]), Ordered on: Ordered History Of Present Illness Encounter Date Complaint History Of Prese nt Illness std tests The patient erum sanz consented to have their visit with [facility] via Telehealth for their concern.Reason for Telehealth [...] verbally [facility] their concern.Reason for Telehealth Visit: State guidelines that residents should remain at home [Home-stay order and/or Quarantine]Telehealth Platform used: [Telephone or Audio/Visual Communication]: TelephoneIs this visit type clinically appropriate for this patient? [Yes/No]: YesIs this encounter in place of a dbyq-hj-pchd encounter? [Yes/No]: YesTotal Length of Telehealth Visit: [time spent - e.g.15 minutes]: 16 gvlatkv85 yo female presents with complain of left [...] sanz consented to have their visit with [facility] via Telehealth for their concern.Reason for Telehealth Visit: current state guidelines require patient stay at home. Telehealth Platform used: TelephoneIs this visit type clinically appropriate for this patient? YesIs this encounter in place of a myrf-ot-jbmj encounter? YesTotal Length of Telehealth Visit: 15 [...] prior orders.This note has been created using [employer] and was completed in the EHR [...]
--- OUTSIDE RECORDS SUMMARY | 2022-12-24 10:45 | XMS_ITS | Continuity of Care Document ---
Author Organization [facility] Address [address] [place] [address] Phone Care Team Providers Care Facing Baster Jumpbasting Name Role Phone Ari Allen Unavailable Unavailabl [...] Copied on Encounter OFFICE/OUTPA TIENT VISIT, EST [facility], [address], [place], [id number], [place] tel:[phone] [facility] std tests (chief complaint) Acute vaginitisScre en for STD (sexually transmitted disease)Essen tial hypertension 3 Moraima Chapman. [address] [place], [place], [id number], [place]. tel:[phone] Referring Provider: Etta Hernandez, [address] [place], [address] . tel:[phone] OFFICE/OUTPA TIENT VISIT EST [facility], [address], [place], [place], [address], [place] tel:[phone] [facility] telehealth visit (chief complaint) Left lateral ankle pain 1 Arabella Christiansen. [address] [place], [address], [place]. tel:[phone] [facility], [address], [address], [place] tel:[phone] [employer] No Information 1 Estuardo Matta. [address] [place], [address], [place]. tel:[phone] OFFICE/OUTPA TIENT VISIT, [facility], [address], [place], [address], [place] tel:[phone] [facility] CHEST PAIN BP CHECK (chief complaint) Essential hypertensionP recordial chest painContact with and (suspected) exposure to other viral communicable diseases 1 Camille Buck. [address] [place], [address], [place]. tel:[phone] OFFICE/OUTPA TIENT VISIT [facility], [address], [place], [address], [place] tel:[phone] [employer] tele health (chief complaint)ast hma (chief complaint)wili nt pain (chief complaint) Polyarthralgi aCough variant asthmaOther mcc (current) drug therapyInflam matory arthritisChro sally cough 0 Estuardo Calderon [address] [place], [address], [place]. tel:[phone] OFFICE/OUTPA TIENT VISIT, [facility], [address], [address], [place] tel:[phone] [facility] POSS YEAST INFECTION (chief complaint) Vaginal candidaSeason al allergic reactionHypot ension due to drugs 0 No Information OFFICE/OUTPA TIENT VISIT, [facility], [address], [id number], [place] tel:[phone] [facility] poss. 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 [address] [place], [address], [place]. tel:[phone] OFFICE/OUTPA TIENT VISIT, [facility], [address], [place], [address], [place] tel:[phone] [facility] POSSIBLE YEAST INFECTION. (chief complaint) Unprotected sexual intercourseVa ginal discharge 9 Behzad Workman. [address] [place], [address], [place]. tel:[phone] OFFICE/OUTPA TIENT VISIT, [facility], [address], [address], [place] tel:[phone] [facility] COLD SYMPTOMS (chief complaint) URI with cough and congestionCou gh variant asthmaAcute bacterial sinusitisOthe r specified bacterial agents as the cause of diseases classified elsewhere 9 Estuardo Matta. [address] [place], [address], [place]. [phone] OFFICE/OUTPA TIENT VISIT, [facility], [address], [id number], [place] tel:[phone] [facility] cough (chief complaint) URI with cough and congestionChr onic allergic rhinitis 9 Estuardo Matta. [address] [place], [address], [place]. tel:[phone] OFFICE/OUTPA TIENT VISIT, [facility], [address], [address], [place] tel:[phone] [facility] Musculoskelet al pain (chief complaint)Sin us symptoms (acute) (chief complaint) Acute upper respiratory infection, unspecifiedAc [place] non-recurrent frontal sinusitis 9 Camille Buck. [address] [place], [address], [place]. tel:[phone] [facility], [address], [address], [place] tel:[phone] [facility] Spinal Care (chief complaint) Segmental and somatic dysfunction of cervical regionSegment al and somatic dysfunction of lumbar region 8 Sesar Bella. [address] [place], [address], [place]. tel:[phone] [facility], [address], [id number], [place] tel:[phone] [facility] LABS ONLY (chief complaint) Family history of diseases of the ms sys and connective tiss 0 8 Camille Buck. [address] [place], [address], [place]. tel:[phone] OFFICE/OUTPA TIENT VISIT, EST [facility], [address], [address], [place] tel:[phone] [facility] RIGHT HEEL PAIN (chief complaint)Anx iety (chief complaint) Chronic fatiguePanic attacksPain of right heelHair lossPolyarthr algiaFamily history of rheumatic joint diseaseLeft foot pain 0 8 Camille Buck. [address] [place], [address], [place]. [phone] OFFICE/OUTPA TIENT VISIT, EST [facility], [address] [facility] [facility] [address], [place], [address], [place] tel:[phone] [facility] UTI (chief complaint) DysuriaDysuri a 0 8 Estuardo Matta. [address] [place], [address], [place]. tel:[phone] OFFICE/OUTPA TIENT VISIT, EST [facility], [address], [address], [place] tel:[phone] [facility] STD check (chief complaint)Fol low up on lab test(s) (chief complaint) Vaginal dischargeChla mydia contactElevat ed BP without diagnosis of hypertension 8 Estuardo Sigrid. [address] [place], [address], [place]. tel:[phone] OFFICE/OUTPA TIENT VISIT, [facility], [address], [address], [place] tel:[phone] [facility] UTI symptoms not getting better (chief complaint) Acute cystitis with hematuria 8 Estuardo Sigrid. [address] [place], [address], [place]. tel:[phone] OFFICE/OUTPA TIENT VISIT, [facility], [address], [place], [address], [place] tel:[phone] [facility] UTI (chief complaint) DysuriaDysuri aVaginal dischargePelv ic pain in female 8 Estuardo Sigrid. [address] [place], [address], [place]. tel:[phone] OFFICE/OUTPA TIENT VISIT, [facility], [address], [address], [place] tel:[phone] [facility] sore throat (chief complaint) Tender lymph nodeRight ear painSore throatProduct radha cough 7 Camille Buck. [address] [place], [address], [place]. tel:[phone] OFFICE/OUTPA TIENT VISIT, [facility], [address], [address], [place] tel:[phone] [facility] results (chief complaint) BV (bacterial vaginosis)Jesusita vated BP without diagnosis of hypertensionA trophy of right kidneyRenal cyst 7 Estuardo Sigrid. [address] [place], [address], [place]. [phone] OFFICE/OUTPA TIENT VISIT, [facility], [address], [id number], [place] tel:[phone] [facility] UTI (chief complaint)ref erral (chief complaint) DysuriaPelvic pain in femaleRenal cyst, rightHx gestational diabetes 7 Estuardo Sigrid. [address] [place], [address], [place]. tel:[phone] OFFICE/OUTPA TIENT VISIT, [facility], [address], [place], [place], [address], [place] tel:[phone] [facility] Burning on urination (chief complaint)Uri nary frequency (chief complaint)URI NE ODOR (chief complaint) DysuriaAcute cystitis with hematuria 7 No Information OFFICE/OUTPA TIENT VISIT, [facility], [address], [place], [place], [address], [place] tel:[phone] [facility] cough (chief complaint) CoughFever, unspecified fever cause 7 Camille Buck. [address] [place], [address], [place]. tel:[phone] OFFICE/OUTPA TIENT VISIT, [facility], [address], [place], [place], [address], [place] tel:[phone] [facility] UTI (chief complaint)pre diabetes (chief complaint)vis ion change (chief complaint) DysuriaAcute pyelonephriti sAcute cystitis with hematuriaPred iabetesDysuri aEncounter for test, result unknown 6 Camille Buck. [address] [place], [address], [place]. tel:[phone] OFFICE/OUTPA TIENT VISIT, [facility], [address], [id number], [place] tel:[phone] [facility] possible uti (chief complaint) DysuriaCystit is 6 Estuardo Matta. [address] [place], [address], [place]. tel:[phone] OFFICE/OUTPA TIENT VISIT, [facility], [address], [place], [address], [place] tel:[phone] [facility] *Rash (chief complaint) Food allergic dermatitisOth bacterial agents as the cause of diseases classd elswhr 6 Estuardo Matta. [address] [place], [address], [place]. tel:[phone] OFFICE/OUTPA TIENT VISIT, [facility], [address], [address], [place] tel:[phone] [facility] annual exam (chief complaint) Encntr screen for infections w sexl mode of transmissEnco unter for screening for oth infec/parastc diseasesEncou nter for screening for human papillomaviru s (HPV)Encounte r for gynecological examination (general) (routine) with abnormal findingsEncnt r for rubber trimmer exam (general) (routine) w/o abn findingsBV (bacterial vaginosis)Oth er specified bacterial agents as the cause of diseases classified elsewhereEnco unter for screening breast examinationHx of breast implants, bilateralHist ory of abdominoplast y 6 Buffy Burns. [address] [place], [place], [address], [place]. tel:[phone] OFFICE/OUTPA TIENT VISIT, [facility], [address], [place], [place], [address], [place] tel:[phone] [facility] PAP test (chief complaint) PrediabetesHy perlipidemiaV isit for routine rubber trimmer examScreening breast examinationBa cterial vaginosisBact erial infectionScre ening examination for venereal diseaseOther specified chlamydial diseasesSPECI AL SCREEN EXAM HPV 5 Buffy Burns. [address] [place], [place], [address], [place]. tel:[phone] [facility], [address], [place], [place], [address], [place] tel:[phone] [facility] LABS ONLY (chief complaint) Dental caries, unspecified 3- 4 Buffy Burns. [address] [place], [place], [address], [place]. tel:[phone] OFFICE/OUTPA TIENT VISIT, NEW [facility], [address], [place], [place], [address], [place] tel:[phone] [facility] physical (chief complaint)est ablish (chief complaint) Routine medical examScreening for diabetes mellitusScree wagner for thyroid disorderScree wagner, anemia, deficiency, iron 0 4 Ross Boone. [address] [place], [address], [place]. tel:[phone] [facility], [address], [place], [place], [address], [place] tel:[phone] [facility] Dental caries, unspecified 3 Mousa Nasr. [address] [place], [place], [address]. tel:[phone] [facility], [address], [place], [place], [address], [place] tel:[phone] [facility] Dental caries, unspecified 6 3 Mousa Nasr. [address] [place], [place], [address]. tel:[phone] Family History Family Member Type Diagnosis Age At Onset Father Problem (finding) Payers Payer name Insurance type Covered libertarian ID Juan Jose carney(s) [employer] Private Insurance [id number] Social History Type Description Quantity Date Captured [...] verbally consented to have their visit with [facility] via Telehealth for their concern.Reason for Telehealth [...] due Goal eGFR. Due on due Goal [facility] Adult 18-64 years. Due on due [...] due Goal Tdap. Due on due Goal [facility] Adult 18-64 years. Due on due Goal Depression scree wagner. Due on due Goal Mammogram Referr al. Due on due Goal Td vaccine. Due on 19 due Goal [facility] Adult 18-64 years. Due on due Goal Tdap. Due on due Goal Influenza vaccin e. Due on due Goal Pap/HPV testing. Due on due Goal Depression scree wagner. Due on due Goal [facility] Adult 18-64 yrs. Due on due Goal Mammogram Referr al. Due on due Goal Pap/HPV testing. Due on due Goal Influenza vaccin e. Due on due Goal Td vaccine. Due on 19 due Goal [facility] Adult 18-64 yrs. Due on due Goal Depression scree wagner. Due on due Goal [facility] Adult 18-64 years. Due on due Goal Tdap. Due on due Goal Mammogram Referr al. Due on due Goal Tdap. Due on due Goal Td vaccine. Due on 19 due Goal Pap/HPV testing. Due on due Goal Influenza vaccin e. Due on due Goal Depression scree wagner. Due on due Goal [facility] Adult 18-64 years. Due on due Goal [facility] Adult 18-64 yrs. Due on due Goal Mammogram Referr al. Due on due Goal Depression scree wagner. Due on due Goal Pap/HPV testing. Due on due Goal Td vaccine. Due on 18 due Goal Influenza vaccin e. Due on due Goal Tdap. Due on due Goal [facility] Adult 18-64 years. Due on due Goal [facility] Adult 18-64 yrs. Due on due Goal Mammogram Referr al. Due on due Goal Depression scree wagner. Due on due Goal [facility] Adult 18-64 years. Due on due Goal Tdap. Due on due Goal Influenza vaccin e. Due on due Goal [facility] Adult 18-64 yrs. Due on due Goal Td vaccine. Due on 18 due Goal Pap/HPV testing. Due on due Goal Mammogram Referr al. Due on due Goal Td vaccine. Due on 18 due Goal Influenza vaccin e. Due on due Goal Depression scree wagner. Due on due Goal Pap/HPV testing. Due on due Goal [facility] Adult 18-64 years. Due on due Goal [facility] Adult 18-64 yrs. Due on due Goal Tdap. Due on due Goal Influenza vaccin e. Due on due Goal Td vaccine. Due on 18 due Goal Tdap. Due on due Goal Mammogram Referr al. Due on due Goal Pap/HPV testing. Due on due Goal Depression scree wagner. Due on due Goal [facility] Adult 18-64 years. Due on due [...] Td vaccine. Due on 18 due Goal [facility] Adult 18-64 years. Due on due [...] Amparo Vaginitis (CV)/Trichomonas vaginalis (TV), TMA (Use [place] [facility] Aptima Multi-test Only) (56096), Ordered on: Ordered Future Order: Lab Order Chlamydi a/Neisseria gonorrhoeae RNA, TMA ([id number]), Ordered on: Ordered Future Order: Lab Order HIV-1/2 Antigen and Antibodies, Fourth Generation, with Reflexes ([id number]), Ordered on: Ordered Future Order: Lab Order HSV 1/2 IGG, HERPESELECT TYPE SPECIFIC AB ([id number]), Ordered on: Ordered Future Order: Lab Order RPR (DX) W/REFL TITER AND CONFIRMATORY TESTING ([id number]), Ordered on: Ordered Future Order: Radiology Order XR Chest 2 Views Pa and Lateral ([id number]), Sent on: Sent Future Order: Lab Order SARS-CoV -2 Serology (COVID-19) Antibody (IgG), Immunoassay ([id number]), Ordered on: Ordered History Of Present Illness Encounter Date Complaint History Of Prese nt Illness std tests The patient erum sanz consented to have their visit with [facility] via Telehealth for their concern.Reason for Telehealth [...] verbally [facility] for their concern.Reason for Telehealth Visit: State guidelines that residents should remain at home [Home-stay order and/or Quarantine]Telehealth Platform used: [Telephone or Audio/Visual Communication]: TelephoneIs this visit type clinically appropriate for this patient? [Yes/No]: YesIs this encounter in place of a tomu-jl-cvap encounter? [Yes/No]: YesTotal Length of Telehealth Visit: [time spent - e.g.15 minutes]: 16 yo female presents with complain of left [...] sanz consented to have their visit with [facility] via Telehealth for their concern.Reason for Telehealth Visit: current state guidelines require patient stay at home. Telehealth Platform used: TelephoneIs this visit type clinically appropriate for this patient? YesIs this encounter in place of a vdgi-jg-gkns encounter? YesTotal Length of Telehealth Visit: 15 [...] prior orders.This note has been created using [employer] and was completed in the EHR [...]
--- OUTSIDE RECORDS SUMMARY | 2022-12-24 10:45 | XMS_ITS | Continuity of Care Document ---
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 [address] [place], [place], [id number], [place]. tel:[phone] Referring Provider: Etta Hernandez, [address] [place], [address] . tel:[phone] OFFICE/OUTPA TIENT VISIT EST [facility], [address], [place], [place], [address], [place] tel:[phone] [facility] telehealth visit (chief complaint) Left lateral ankle pain 1 Arabella Christiansen. [address] [place], [address], [place]. tel:[phone] [employer] [employer], [address], [id number], [place] tel:[phone] [facility] No Information 1 Estuardo Matta. [address] [place], [address], [place]. tel:[phone] OFFICE/OUTPA TIENT VISIT, [facility] [employer] [facility], [address], [place], [address], [place] tel:[phone] [facility] CHEST PAIN BP CHECK (chief complaint) Essential hypertensionP recordial chest painContact with and (suspected) exposure to other viral communicable diseases 1 Camille Buck. [address] [place], [address], [place]. tel:[phone] OFFICE/OUTPA TIENT VISIT [facility] [employer], [address], [address], [place] tel:[phone] [facility] tele health (chief complaint)ast hma (chief complaint)wili nt pain (chief complaint) Polyarthralgi aCough variant asthmaOther penitentiary (current) drug therapyInflam matory arthritisChro slaly cough 0 Estuardo Calderon [address] [place], [address], [place]. tel:[phone] OFFICE/OUTPA TIENT VISIT, [facility] [employer], [address], [address], [place] tel:[phone] [facility] POSS YEAST INFECTION (chief complaint) Vaginal candidaSeason al allergic reactionHypot ension due to drugs 0 No Information OFFICE/OUTPA TIENT VISIT, [facility] [employer], [address], [place], [address], [place] tel:[phone] [facility] poss. uti (chief complaint) Bacterial vaginosisOthe r specified bacterial agents as the cause of diseases classified elsewhereWeig ht gainHair lossOther ecd (current) drug therapy 9 Estuardo Chackon. [address] [place], [address], [place]. tel:[phone] OFFICE/OUTPA TIENT VISIT, [facility], [address], [address], [place] tel:[phone] [facility] POSSIBLE YEAST INFECTION. (chief complaint) Unprotected sexual intercourseVa ginal discharge 9 Behzad Workman. [address] [place], [address], [place]. tel:[phone] OFFICE/OUTPA TIENT VISIT, [facility], [address], [id number], [place] tel:[phone] [facility] COLD SYMPTOMS (chief complaint) URI with cough and congestionCou gh variant asthmaAcute bacterial sinusitisOthe r specified bacterial agents as the cause of diseases classified elsewhere 9 Estuardo Matta. [address] [place], [address], [place]. [phone] OFFICE/OUTPA TIENT VISIT, [facility], [address], [id number], [place] tel:[phone] [facility] cough (chief complaint) URI with cough and congestionChr onic allergic rhinitis 9 Estuardo Matta. [address] [place], [address], [place]. tel:[phone] OFFICE/OUTPA TIENT VISIT, [facility], [address], [address], [place] tel:[phone] [facility] Musculoskelet al pain (chief complaint)Sin us symptoms (acute) (chief complaint) Acute upper respiratory infection, unspecifiedAc [place] non-recurrent frontal sinusitis 9 Camille Buck. [address] [place], [address], [place]. tel:[phone] [facility], [address], [address], [place] tel:[phone] [facility] Spinal Care (chief complaint) Segmental and somatic dysfunction of cervical regionSegment al and somatic dysfunction of lumbar region 8 Sesar Bella. [address] [place], [address], [place]. tel:[phone] [facility], [address], [address], [place] tel:[phone] [facility] LABS ONLY (chief complaint) Family history of diseases of the ms sys and connective tiss 0 8 Camille Buck. [address] [place], [address], [place]. tel:[phone] OFFICE/OUTPA TIENT VISIT, EST [employer] [facility], [address], [address], [place] tel:[phone] [facility] RIGHT HEEL PAIN (chief complaint)Anx iety (chief complaint) Chronic fatiguePanic attacksPain of right heelHair lossPolyarthr algiaFamily history of rheumatic joint diseaseLeft foot pain 0 8 Camille Buck. [address] [place], [address], [place]. [phone] OFFICE/OUTPA TIENT VISIT, EST [employer], [address], [place], [id number], [place] tel:[phone] [facility] UTI (chief complaint) DysuriaDysuri a 0 8 Estuardo Matta. [address] [place], [address], [place]. tel:[phone] OFFICE/OUTPA TIENT VISIT, EST [employer], [address], [id number], [place] tel:[phone] [facility] STD check (chief complaint)Fol low up on lab test(s) (chief complaint) Vaginal dischargeChla mydia contactElevat ed BP without diagnosis of hypertension 8 Estuardo Sigrid. [address] [place], [address], [place]. tel:[phone] OFFICE/OUTPA TIENT VISIT, [facility] [employer], [address], [address], [place] tel:[phone] [facility] UTI symptoms not getting better (chief complaint) Acute cystitis with hematuria 8 Estuardo Sigrid. [address] [place], [address], [place]. tel:[phone] OFFICE/OUTPA TIENT VISIT, [facility] [employer], [address], [address], [place] tel:[phone] [facility] UTI (chief complaint) DysuriaDysuri aVaginal dischargePelv ic pain in female 8 Estuardo Sigrid. [address] [place], [address], [place]. tel:[phone] OFFICE/OUTPA TIENT VISIT, [facility] [employer], [address], [address], [place] tel:[phone] [facility] sore throat (chief complaint) Tender lymph nodeRight ear painSore throatProduct radha cough 7 Camille Buck. [address] [place], [address], [place]. tel:[phone] OFFICE/OUTPA TIENT VISIT, [facility] [employer], [address], [address], [place] tel:[phone] [facility] results (chief complaint) BV (bacterial vaginosis)Jesusita vated BP without diagnosis of hypertensionA trophy of right kidneyRenal cyst 7 Estuardo Sigrid. [address] [place], [address], [place]. [phone] OFFICE/OUTPA TIENT VISIT, [facility], [address], [address], [place] tel:[phone] [facility] UTI (chief complaint)ref erral (chief complaint) DysuriaPelvic pain in femaleRenal cyst, rightHx gestational diabetes 7 Estuardo Sigrid. [address] [place], [address], [place]. tel:[phone] OFFICE/OUTPA TIENT VISIT, [facility], [address], [place], [place], [address], [place] tel:[phone] [facility] Burning on urination (chief complaint)Uri nary frequency (chief complaint)URI NE ODOR (chief complaint) DysuriaAcute cystitis with hematuria 7 No Information OFFICE/OUTPA TIENT VISIT, [facility], [address], [place], [place], [address], [place] tel:[phone] [facility] cough (chief complaint) CoughFever, unspecified fever cause 7 Camille Buck. [address] [place], [address], [place]. tel:[phone] OFFICE/OUTPA TIENT VISIT, [facility], [address], [place], [place], [address], [place] tel:[phone] [facility] UTI (chief complaint)pre diabetes (chief complaint)vis ion change (chief complaint) DysuriaAcute pyelonephriti sAcute cystitis with hematuriaPred iabetesDysuri aEncounter for test, result unknown 6 Camille Buck. [address] [place], [address], [place]. tel:[phone] OFFICE/OUTPA TIENT VISIT, [facility] [employer] [facility], [address], [address], [place] tel:[phone] [facility] possible uti (chief complaint) DysuriaCystit is 6 Estuardo Matta. [address] [place], [address], [place]. tel:[phone] OFFICE/OUTPA TIENT VISIT, [facility] [employer] [facility], [address], [address], [place] tel:[phone] [facility] *Rash (chief complaint) Food allergic dermatitisOth bacterial agents as the cause of diseases classd elswhr 6 Estuardo Matta. [address] [place], [address], [place]. tel:[phone] OFFICE/OUTPA TIENT VISIT, [facility] [employer], [address], [address], [place] tel:[phone] [facility] annual exam (chief complaint) Encntr screen for infections w sexl mode of transmissEnco unter for screening for oth infec/parastc diseasesEncou nter for screening for human papillomaviru s (HPV)Encounte r for gynecological examination (general) (routine) with abnormal findingsEncnt r for waiter/waitress cafeteria exam (general) (routine) w/o abn findingsBV (bacterial vaginosis)Oth er specified bacterial agents as the cause of diseases classified elsewhereEnco unter for screening breast examinationHx of breast implants, bilateralHist ory of abdominoplast y 6 Buffy Burns. [address], [place], [address], [place]. tel:[phone] OFFICE/OUTPA TIENT VISIT, [facility] [employer], [address], [place], [place], [address], [place] tel:[phone] [facility] PAP test (chief complaint) PrediabetesHy perlipidemiaV isit for routine waiter/waitress cafeteria examScreening breast examinationBa cterial vaginosisBact erial infectionScre ening examination for venereal diseaseOther specified chlamydial diseasesSPECI AL SCREEN EXAM HPV 5 Buffy Burns. [address], [place], [address], [place]. tel:[phone] [facility], [address], [place], [place], [address], [place] tel:[phone] [facility] LABS ONLY (chief complaint) Dental caries, unspecified 3- 4 Buffy Burns. [address], [place], [address], [place]. tel:[phone] OFFICE/OUTPA TIENT VISIT, NEW [facility], [address], [place], [place], [address], [place] tel:[phone] [facility] physical (chief complaint)est ablish (chief complaint) Routine medical examScreening for diabetes mellitusScree wagner for thyroid disorderScree wagner, anemia, deficiency, iron 0 4 Ross Boone. [address] [place], [address], [place]. tel:[phone] [facility], [address], [place], [place], [address], [place] tel:[phone] [facility] Dental caries, unspecified 3 Mousa Nasr. [address], [place], [address]. tel:[phone] [facility], [address], [place], [place], [address], [place] tel:[phone] [facility] Dental caries, unspecified 6 3 Mousa Nasr. [address], [place], [address]. tel:[phone] Family History Family Member Type Diagnosis Age At Onset Father Problem (finding) Payers Payer name Insurance type Covered alliance party ID Juan Jose carney(s) [employer] [id number] Social History Type Description Quantity Date Captured [...] to have their visit with [facility] via Telehealth for their concern.Reason [...] due Goal eGFR. Due on due Goal [facility] Adult 18-64 years. Due on due [...] due Goal Tdap. Due on due Goal [facility] Adult 18-64 years. Due on due Goal Depression scree wagner. Due on due Goal Mammogram Referr al. Due on due Goal Td vaccine. Due on 19 due Goal [facility] Adult 18-64 years. Due on due Goal Tdap. Due on due Goal Influenza vaccin e. Due on due Goal Pap/HPV testing. Due on due Goal Depression scree wagner. Due on due Goal [facility] Adult 18-64 yrs. Due on due Goal Mammogram Referr al. Due on due Goal Pap/HPV testing. Due on due Goal Influenza vaccin e. Due on due Goal Td vaccine. Due on 19 due Goal [facility] Adult 18-64 yrs. Due on due Goal Depression scree wagner. Due on due Goal [facility] Adult 18-64 years. Due on due Goal Tdap. Due on due Goal Mammogram Referr al. Due on due Goal Tdap. Due on due Goal Td vaccine. Due on 19 due Goal Pap/HPV testing. Due on due Goal Influenza vaccin e. Due on due Goal Depression scree wagner. Due on due Goal [facility] Adult 18-64 years. Due on due Goal [facility] Adult 18-64 yrs. Due on due Goal Mammogram Referr al. Due on due Goal Depression scree wagner. Due on due Goal Pap/HPV testing. Due on due Goal Td vaccine. Due on 18 due Goal Influenza vaccin e. Due on due Goal Tdap. Due on due Goal [facility] Adult 18-64 years. Due on due Goal [facility] Adult 18-64 yrs. Due on due Goal Mammogram Referr al. Due on due Goal Depression scree wagner. Due on due Goal [facility] Adult 18-64 years. Due on due Goal Tdap. Due on due Goal Influenza vaccin e. Due on due Goal [facility] Adult 18-64 yrs. Due on due Goal Td vaccine. Due on 18 due Goal Pap/HPV testing. Due on due Goal Mammogram Referr al. Due on due Goal Td vaccine. Due on 18 due Goal Influenza vaccin e. Due on due Goal Depression scree wagner. Due on due Goal Pap/HPV testing. Due on due Goal [facility] Adult 18-64 years. Due on due Goal [facility] Adult 18-64 yrs. Due on due Goal Tdap. Due on due Goal Influenza vaccin e. Due on due Goal Td vaccine. Due on 18 due Goal Tdap. Due on due Goal Mammogram Referr al. Due on due Goal Pap/HPV testing. Due on due Goal Depression scree wagner. Due on due Goal [facility] Adult 18-64 years. Due on due [...] Td vaccine. Due on 18 due Goal [facility] Adult 18-64 years. Due on due [...] Amparo Vaginitis (CV)/Trichomonas vaginalis (TV), TMA (Use [place] Label Aptima Multi-test Only) (70646), Ordered on: Ordered Future Order: Lab Order Chlamydi a/Neisseria gonorrhoeae RNA, TMA ([id number]), Ordered on: Ordered Future Order: Lab Order HIV-1/2 Antigen and Antibodies, Fourth Generation, with Reflexes ([id number]), Ordered on: Ordered Future Order: Lab Order HSV 1/2 IGG, HERPESELECT TYPE SPECIFIC AB ([id number]), Ordered on: Ordered Future Order: Lab Order RPR (DX) W/REFL TITER AND CONFIRMATORY TESTING ([id number]), Ordered on: Ordered Future Order: Radiology Order XR Chest 2 Views Pa and Lateral ([id number]), Sent on: Sent Future Order: Lab Order SARS-CoV -2 Serology (COVID-19) Antibody (IgG), Immunoassay ([id number]), Ordered on: Ordered History Of Present Illness Encounter Date Complaint History Of Prese nt Illness std tests The patient erum sanz consented to have their visit with [facility] via Telehealth for their concern.Reason [...] [facility].Reason for Telehealth Visit: State guidelines that residents should remain at home [Home-stay order and/or Quarantine]Telehealth Platform used: [Telephone or Audio/Visual Communication]: TelephoneIs this visit type clinically appropriate for this patient? [Yes/No]: YesIs this encounter in place of a rivd-uf-pbhe encounter? [Yes/No]: YesTotal Length of Telehealth Visit: [time spent - e.g.15 minutes]: 16 [id number] yo female presents with complain of left [...] to have their visit with [facility] via Telehealth for their concern.Reason for Telehealth Visit: current state guidelines require patient stay at home. Telehealth Platform used: TelephoneIs this visit type clinically appropriate for this patient? YesIs this encounter in place of a swjy-bl-wucj encounter? YesTotal Length of Telehealth Visit: 15 [...] prior orders.This note has been created using [employer] and was completed in the EHR [...]
[2025-02-02 20:46] VITALS: BP 139/93; PULSE 70; RESP 19; TEMP 37.1; O2SAT 100; BMI 29.4
--- NOTE | 2025-02-02 20:47 | ECG_ITS ---
APPROVED REPORT Exam: Resting ECG HR:67 bpm ECG Measurements Heart Rate 67 AXES NJ 166 P 46 QRSd 98 QRS 18 QT 372 T 53 QTc 387 Conclusion SINUS RHYTHM WITH OCCASIONAL VENTRICULAR PREMATURE COMPLEXES BORDERLINE ECG UNCONFIRMED REPORT Electronically signed by : Rachid Mejia, 02/02/2025 21:56:07
--- NOTE | 2025-02-02 20:49 | XR_ITS ---
PROCEDURE INFORMATION: Exam: XR Chest Exam date and time: 02/02/2025 8:54 PM Age: 54 years old Clinical indication: Shortness of breath; Additional info: Short of breath TECHNIQUE: Imaging protocol: Radiologic exam of the chest. Views: 1 view. COMPARISON: CR XR THORACIC SPINE 3V 12/29/2024 3:50 PM FINDINGS: Lungs: Unremarkable. No consolidation. Pleural spaces: Unremarkable. No pleural effusion. No pneumothorax. Heart/Mediastinum: Unremarkable. No cardiomegaly. Bones/joints: Unremarkable. IMPRESSION: No acute findings.
--- OUTSIDE RECORDS SUMMARY | 2025-02-02 20:51 | XMS_ITS | Clinical Summary ---
Author Organization [facility] Address [address] [place] [address] [address] [place] [address] Phone Care Team Providers Care Sign Board Erector Name Role Phone Unavailable Primary Care Provider [...] of 2) 05/17/2021 COVID-19 Vaccine (1 - 2024-2 6 season) 2024 Influenza Vaccine (#1) 2024 Meningococcal B Vaccine Aged Out No l onger eligible based on patient's age to complete this topic Insurance #[id number] [place] [address]
--- NOTE | 2025-02-02 20:52 | ED_ITS ---
<Statement entered by Ankit Mejia MD - 02/02/25 21:46> I was consulted by the MOIRA, and we discussed the complexity of the problems being addressed. I approved the treatment and management plan for this patient's care in the emergency department, thus performing a substantive portion of the medical decision making. Ankit Mejia MD, DAHLIA, FACEP Discharge Plan Disposition Chief Complaint: Chest Pain Prescriptions Prescriptions: No Action cetirizine 10 mg tablet 10 mg PO DAILY dicyclomine 10 mg capsule 10 mg PO BID PRN epinephrine [EpiPen 2-Timbo] 0.3 mg/0.3 mL auto-injector 0.3 mg IM Q5-15M PRN (Reason: anaphylaxis) Qty: 2 1RF Rx Instructions: do not exceed 3 doses per episode lansoprazole [Prevacid SoluTab] 15 mg tablet,disintegrat, delay rel 15 mg PO DAILY Qty: 30 2RF lisinopril-hydrochlorothiazide 10-12.5 mg tablet 1 tab PO DAILY Qty: 30 5RF albuterol sulfate [Ventolin HFA] 90 mcg/actuation HFA aerosol inhaler 2 puff inhalation Q4-6H PRN (Reason: shortness of breath or wheezing) Qty: 8.5 2RF hydroxyzine HCl 25 mg tablet See Rx Instructions .ROUTE .COMPLEX Qty: 90 0RF Dose Instruction: TAKE 1 TABLET BY MOUTH THREE TIMES DAILY NEEDED FOR ITCHING Rx Instructions: TAKE 1 TABLET BY MOUTH THREE TIMES DAILY NEEDED FOR ITCHING triamcinolone acetonide 0.1 % cream See Rx Instructions .ROUTE .COMPLEX Qty: 80 0RF Dose Instruction: APPLY CREAM EXTERNALLY TO AFFECTED AREA THREE TIMES DAILY Rx Instructions: APPLY CREAM EXTERNALLY TO AFFECTED AREA THREE TIMES DAILY Referrals Follow up/Referrals: Gin Gould APRN [Primary Care Provider, Medical] - See instructions Print Language Print Language: Armenian Discharge ED Provider: Ankit Mejia HPI General Chief Complaint: Chest Pain Stated Complaint: chest pain Time Seen by Provider: 02/02/25 20:48 History of Present Illness HPI narrative: 54-year-old female presents to the ED today for complaint of pain in her chest, numbness in her fingers that started last week that has been going on off and on. She says that when she starts to have chest pain in the center of her chest she will also get dizzy and short of breath. She was diagnosed with alpha gal syndrome in July of this year. She does have nausea but no vomiting she has not been recently ill. No recent fevers or chills. Patient also takes omeprazole and a blood pressure medication she takes black market Mounjaro weekly. She has had episodes in the past where she is hypoglycemic. She says that she is had to have EMS revive her Related Data Home Medications ?Medication ?Instructions ?Recorded ?Confirmed cetirizine 10 mg tablet 10 mg PO DAILY 08/31/2412/15 dicyclomine 10 mg capsule 10 mg PO BID PRN 08/31/24 Previous Rx's ?Medication ?Instructions ?Recorded epinephrine 0.3 mg/0.3 mL 0.3 mg (0.3 mL) IM Q5-15M RI N 09/06/24 injection, auto-injector (EpiPen anaphylaxis #2 ea 2-Timbo) albuterol sulfate 90 mcg/actuation 2 puff inhalation Q 4-6H PRN 09/24/24 aerosol inhaler (Ventolin HFA) shortness of breath or wheezing #8.5 grams lansoprazole 15 mg delayed 15 mg PO DAILY #30 tabs 02/08 release,disintegrating tablet (Prevacid SoluTab) lisinopril 10 1 tab PO DAILY #30 tabs 09/14 04/10 mg-hydrochlorothiazide 12.5 mg tablet hydroxyzine HCl 25 mg tablet See Rx Instructions .Rout e 11/26/24 .COMPLEX #90 tabs triamcinolone acetonide 0.1 % See Rx Instructions .Rou te 01/11/25 topical cream .COMPLEX #80 grams Allergies Allergy/AdvReac Type Severity Reaction Status Date / Time No Known Allergies Allergy Verified 12/29/24 14:47 [facility] Disclaimer: The information contained in this section may have been updated after the patient was seen, as this information can be updated by other users. Medical History Anxiety Hypertension Surgical History H/O breast augmentation History of abdominoplasty Family History (Updated 12/29/24 @ 14:59 by Griselda Shipman CMA) Mother Uterine cancer Grandmother Cancer Social History (Updated 12/29/24 @ 14:59 by Griselda Shipman CMA) Smoking Status: Never smoker alcohol intake: never substance use type: denies use current occupational status: unemployed Travel in the last 8 weeks?: Inside the [place] Have you lived/traveled outside US in past 30 days?: No Contact w/someone who lives/traveled outside US past 30 days?: No Exposure to someone with infectious disease in past 14 days?: No Do you have a fever (greater than 100.4 F or 38 C)?: No Have you tested positive for COVID-19?: No Exposed to someone with COVID-19 in past 14 days?: No Do you have a sore throat?: No Do you have a cough?: No Do you have any weakness?: No Do you have any diarrhea?: No Are you experiencing any unusual bleeding?: No Do you have any muscle aches/pain?: No Do you have any abdominal pain?: No Are you experiencing loss of taste or smell?: No Other Medical History Have you received the Flu Vaccine for this season: No Have you received the Pneumonia Vaccine: No ROS Obtained: Yes Systems reviewed as appropriate & no additional complaints except as documented Constitutional Constitutional: Reports as per HPI Physical Exam General General appearance: alert and anxious Head Head exam: normocephalic Eye Eye exam: Present PERRL ENT ENT exam: Present normal exam and mucous membranes moist Neck Neck exam: Present trachea midline Chest Chest inspection: Present symmetric chest wall rise Respiratory Respiratory exam: Present normal lung sounds bilaterally Cardiovascular Cardiovascular exam: Present regular rate, normal rhythm, normal heart sounds, +S1 and +S2 Abdominal Exam Abdominal exam: Present soft and normal bowel sounds Extremities Exam Extremities exam: Present normal inspection, full ROM and normal capillary refill Back Exam Back exam: Present full ROM Neurological Exam Neurological exam: Present alert and oriented X3 Psychiatric Psychiatric exam: Present normal mood and anxious Skin Skin exam: Present warm and dry HEART Score HEART Score HEART Score assessment performed?: Yes History (anamnesis): Slightly suspicious ECG: Normal Age: 45-65 years Risk factors: 1-2 risk factors Troponin: </= normal limit HEART Score: 2 Critical Care Critical Care Time Critical Care Time: No Medical Decision Making Jamey Inquiry Pt receiving controlled substance: No Jamey was queried for this patient: No Vital Signs Vital Signs: 02/02/25 20:46 Temperature 98.7 F Temperature Source Oral Pulse Rate [Left] 70 Respiratory Rate 19 Blood Pressure [Right Arm] 139/93 H Blood Pressure Mean [Right Arm] 108 Blood Pressure Source [Right Arm] Automatic Cuff Blood Pressure Position [Right Arm] Supine 02 Sat by Pulse Oximetry 100 Oxygen Delivery Method Room Air Lab Data Labs: Lab Results 02/02/25 20:52: WBC 7.1, RBC 4.66, Hgb 14.2, Hct 41.4, MCV 88.8, MCH 30.5, MCHC 34.3, RDW 11.9, Plt Count 247, MPV 10.8 H, Neut % (Auto) 57.2, Lymph % (Auto) 35.0, [place] % (Auto) 6.6, Eos % (Auto) 0.1, Baso % (Auto) 0.8, Neut # (Auto) 4.1, Lymph # (Auto) 2.5, [place] # (Auto) 0.5, Eos # (Auto) 0.0, Baso # (Auto) 0.1, PT 11.3, INR 1.02, APTT 24.2, D-Dimer 0.93 H, Sodium 139, Potassium 3.5, Chloride 101, Carbon Dioxide 26, Anion Gap 15.5 H, BUN 17, Creatinine 0.90, Estimated Creat Clear 83, Estimated GFR 65, Est GFR ( Amer) 79, Glucose 80, Calcium 9.6, Magnesium 2.0, Total Bilirubin 0.5, AST 30, ALT 22, Alkaline Phosphatase 58, Troponin I < 0.01, Total Protein 8.0, Albumin 4.9, Globulin 3.1, Albumin/Globulin Ratio 1.6, Lipase 160 02/02/25 20:59: SARS-CoV-2 (PCR) Not detected, Influenza A Untype (PCR) Not detected, Influenza Type B (PCR) Not detected 02/02/25 20:52 02/02/25 20:52 Response Orders (Tests/Meds): ED MEDICATIONS Generic Name Dose Route Start Last Admin Trade Name Freq PRN Reason Stop Dose Admin Sodium Chloride 8 ml 02/02/25 20:49 Sodium Chloride 0.9% 10ml Vial IV 03/04/25 20:48 NEEDED PRN dilute pepcid Discontinued Medications Generic Name Dose Route Start Last Admin Trade Name Freq PRN Reason Stop Dose Admin Aspirin 325 mg 02/02/25 20:49 02/02/25 21:09 Aspirin 325mg Tablet PO 02/02/25 20:50 325 mg ONCE ONE Administration Famotidine 20 mg 02/02/25 20:49 02/02/25 21:09 Famotidine 20mg/2ml Vial IV 02/02/25 20:50 20 mg ONCE ONE Administration Ondansetron HCl 4 mg 02/02/25 21:01 02/02/25 21:08 Ondansetron 4mg/2ml Vial IV 02/02/25 21:02 4 mg ONCE ONE Administration ORDERS Category Date Time Status Chest XR -- portable [XR chest portable] Stat Exams 02/02/25 20:49 Completed CBC [Complete Blood Count Auto Diff] Stat Lab 02/02/25 20:52 Completed Comprehensive Metabolic Panel Stat Lab 02/02/25 20:52 Completed D-Dimer Stat Lab 02/02/25 20:52 Completed Lipase Stat Lab 02/02/25 20:52 Completed Magnesium Stat Lab 02/02/25 20:52 Completed PT INR [Prothrombin Time INR] Stat Lab 02/02/25 20:52 Completed PTT [Activated Partial Thrombo Time] Stat Lab 02/02/25 20:52 Completed Rapid PCR Covid and Flu A/B Stat Lab 02/02/25 20:59 Completed Trop I [Troponin I] Stat Lab 02/02/25 20:52 Completed Troponin I Q3H Lab 02/02/25 23:50 Ordered Troponin I Q3H Lab 02/03/25 02:50 Ordered MDM Narrative Medical Decision Narrative: patient is a 54-year-old female presenting to the emergency department for evaluation of chest pain and shortness of breath with nausea. Patient is hemodynamically stable and nontoxic-appearing upon arrival, afebrile. Differential diagnosis includes ACS, CAD, hypoglycemia, medication side effect. Workup will be conducted with hematologic labs, specific imaging, provocative tests. Initial inventions include crystalloid bolus, analgesics, antibiotics. Initial workup reviewed by me hematologic labs are remarkable for white count 7.1 H&H are normal, D-dimer was 0.93 and per years criteria patient likelihood of VTE is very unlikely. Patient's electrolytes were normal patient liver enzymes were normal first troponin was less than 0.01. Chest x-ray showed no acute findings. Patient chest pain is off and on and causing shortness of breath so I would like to get the final troponin. Patient otherwise stable. Report will be given to Dr. Mejia. Patient stable at this time.
[2025-02-02 21:05] LABS: Hematocrit 41.4 % (37.0-47.0); Hemoglobin 14.2 g/dL (12.2-16.2); Immature Granulocytes % 0.3 %; Mean Corpuscular HGB Conc 34.3 g/dL (31.8-35.4); Mean Corpuscular Hemoglobin 30.5 pg (27.0-31.2); Mean Corpuscular Volume 88.8 fl (81-99); Nucleated Red Blood Cells % 0 %; Platelet Count 247 K/mm3 (142-424); Red Blood Count 4.66 M/mm3 (4.20-5.40); Red Cell Distribution Width-SD 37.9 fL; White Blood Count 7.1 K/mm3 (4.8-10.8)
[2025-02-02 21:06] LABS: Albumin Level 4.9 g/dl (3.5-5.0)
[2025-02-02 21:07] LABS: Coronavirus 19, PCR Not Detected (NotDetected); Influenza A, PCR Not Detected (NotDetected); Influenza B, PCR Not Detected (NotDetected)
[2025-02-02 21:07] LABS: Chloride 101 mmol/L (98-107); Potassium 3.5 mmoL/L (3.5-5.1); Sodium 139 mmol/L (136-145)
[2025-02-02] MEDS: ONDANSETRON 4MG/2ML VIAL 4 MG IV (21:08)
[2025-02-02 21:09] LABS: Alanine Aminotransferase 22 U/L (12-78); Anion Gap 15.5 mEq/L (5-15); Aspartate Amino Transferase 30 U/L (14-36); Blood Urea Nitrogen 17 mg/dl (7-17); Carbon Dioxide 26 mmol/L (22.0-30.0); Creatinine Clearance Estimated 83 mL/min (50-200); Creatinine,Serum 0.90 mg/dl (0.52-1.04); Estimated Glomerular Filt Rate 65 ml/min (>60); GFR (African American) 79 ML/MIN (>60)
[2025-02-02] MEDS: FAMOTIDINE 20MG/2ML VIAL 20 MG IV (21:09)
[2025-02-02] MEDS: ASPIRIN 325MG TABLET 325 MG PO (21:09)
[2025-02-02 21:10] LABS: Albumin/Globulin Ratio 1.6 (1.1-1.8); Alkaline Phosphatase 58 U/L (38-126); Bilirubin,Total 0.5 mg/dl (0.2-1.3); Calcium 9.6 mg/dl (8.4-10.2); Globulin 3.1 g/dL (1.3-3.2); Glucose 80 mg/dl (74-100); Lipase 160 U/L (23-300); Magnesium 2.0 mg/dl (1.6-2.3); Total Protein,Serum 8.0 g/dl (6.3-8.2)
[2025-02-02 21:16] LABS: INR 1.02 (0.9-1.1); Prothrombin Time 11.3 seconds (10.1-12.5)
[2025-02-02 21:19] LABS: Activated Partial Thrombo Time 24.2 seconds (22.8-30.6)
[2025-02-02 21:22] LABS: Troponin I < 0.01 ng/ml (0.00-0.034)
[2025-02-02 21:25] LABS: D-Dimer 0.93 ug/mL (0.0-0.5)
[2025-02-02 22:00] VITALS: BP 104/71; PULSE 61; RESP 19; O2SAT 97
[2025-02-02 22:30] VITALS: BP 99/69; PULSE 63; RESP 20; O2SAT 99
[2025-02-02 23:00] VITALS: BP 91/63; PULSE 56; RESP 18; O2SAT 96
[2025-02-03] VITALS: BP 103/63; PULSE 57; O2SAT 97
[2025-02-03 01:09] LABS: Troponin I < 0.01 ng/ml (0.00-0.034)
[2025-02-03 01:24] VITALS: BP 96/66; PULSE 57; RESP 17; TEMP 36.8; O2SAT 96
== END 2025-02-03 01:26 | disposition home or self-care (01) ==
PROVIDERS: Nurse Practitioner; Emergency Provider Student in an Organized Health Care Education/Training Program; PCP Nurse Practitioner Family
DX: R07.9 Chest pain, unspecified (principal); R06.02 Shortness of breath; I10 Essential (primary) hypertension
CPT/HCPCS: 71045; 80053; 83690; 83735; 84484; 85025; 85378; 85610; 85730; 87636; 93005; 96374; 96375; 99285; J1308; J2405